=== PATIENT | male | born 1955 | race Caucasian/White ===

== ENCOUNTER → 2017-11-07 | Outpatient (CLI) | payer MEDICARE ==
--- NOTE | 2017-11-07 13:53 | MR ---
EXAMINATION TYPE: MR brain wo con DATE OF EXAM: 11/07/2017 COMPARISON: Prior MRI brain January 27, 2014. CT neck February 11, 2014 HISTORY: Memory loss, Parkinson's disease TECHNIQUE: Multiplanar, multisequence imaging of the brain and brainstem is performed without IV cont rast. FINDINGS: Diffusion weighted images demonstrate no evidence of a recent infarct or other diffusion abnormality. There is no worrisome extra-axial fluid collection. There is ventricular and sulcal prominence consis tent with mild diffuse age-related cerebral atrophy. Some scattered foci of T2 hyperintensity are red emonstrated throughout the white matter bilaterally. Approximately 10-15 scattered lesions are seen i ncluding irregular subcortical lesion right frontal lobe axial image 26. No distinct change from most recent MRI. Midline structures demonstrate normal morphology. The craniocervical junction appears within normal limits. Normal vascular flow voids are present. Dominant left vertebral artery is redemonstrated. The visualized sinuses are clear and the globes are intact. Nasal septum remains deviated to right of mi dline. 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 IMPRESSION: 1. Mild diffuse age-related cerebral atrophy and mild to borderline moderate chronic small vessel isc hemic change without significant change from most recent MRI.
== END | disposition home or self-care (01) ==
LOC: RADMRIMAIN 12:14
PROVIDERS: ATTEND Psychiatry & Neurology Neurology
DX: G31.9 Degenerative disease of nervous system, unspecified (principal); I67.82 Cerebral ischemia; G20 Parkinson's disease
CPT/HCPCS: 70551

== ENCOUNTER → 2018-01-27 | Outpatient (CLI) | payer MEDICARE | END | disposition home or self-care (01) | LOC: LABWHC1 14:49 | PROVIDERS: ATTEND Urology | DX: R97.20 Elevated prostate specific antigen [PSA] (principal) | CPT/HCPCS: 36415; 84153 ==

== ENCOUNTER → 2018-08-22 | Outpatient (CLI) | payer MEDICARE ==
--- NOTE | 2018-08-22 10:37 | FL ---
Modified barium swallow. HISTORY: Dysphagia. Modified barium swallow was performed with the department of speech pathology. The patient was prese nted with various consistencies of barium. fluoro time 1:[address] Dawn. 1 oz thin barium, 1 oz pudding, 1 oz nectar, and 1 oz honey. There is no evidence for aspiration or penetration. Full report is to follow from the department of speech pathology. Impression: No evidence for aspiration or penetration.
== END | disposition home or self-care (01) ==
LOC: RADFLMAIN 09:45
PROVIDERS: ATTEND Physician Assistant Medical
DX: G20 Parkinson's disease (principal)
CPT/HCPCS: 74230

== ENCOUNTER → 2019-01-23 | Outpatient (CLI) | payer MEDICARE | END | disposition home or self-care (01) | LOC: LABWHC1 10:15 | PROVIDERS: ATTEND Urology | DX: R97.20 Elevated prostate specific antigen [PSA] (principal) | CPT/HCPCS: 36415; 84153 ==

== ENCOUNTER → 2019-04-08 | Outpatient (CLI) | payer MEDICARE ==
--- NOTE | 2019-04-08 16:55 | FL ---
MODIFIED SWALLOW / DEGLUTITION STUDY DATE OF EXAM: 04/08/2019 CLINICAL HISTORY: 64-year-old male dysphagia, Parkinson's disease, trouble swallowing. TECHNIQUE: Deglutition study is performed utilizing thin liquid barium, honey and nectar thick liqui d barium, barium thick applesauce, and barium coated cracker. Total fluoroscopy time: 3 minutes 20 seconds. Total images: None. Real-time fluoroscopy support provided to speech pathology. COMPARISON: None. FINDINGS: There is moderate delay in swallow initiation. This improves after a few swallows. There is limited r otary Joshua movement. There is also matching of solids with the tongue. Incomplete epiglottic inversio n is noted. Intermittent severe vallecular and piriform sinus residuals. No penetration or aspiration with any of the tested consistencies. IMPRESSION: 1. No penetration or aspiration seen. 2. Moderate delay in swallow initiation which gradually improves after a few swallows. 3. Incomplete epiglottic inversion. 4. Intermittent severe vallecular and piriform sinus residuals. 5. Limited rotary jaw movement. Please refer to speech therapist notes for further details if necessary.
== END ==
LOC: RADFLMAIN 11:02
PROVIDERS: ATTEND Psychiatry & Neurology Neurology
DX: R13.12 Dysphagia, oropharyngeal phase (principal)
CPT/HCPCS: 74230

== ENCOUNTER → 2019-11-04 | Outpatient (CLI) | payer MEDICARE ==
--- NOTE | 2019-11-05 06:29 | MR ---
EXAMINATION TYPE: MR brain wo con DATE OF EXAM: 11/04/2019 COMPARISON: Prior MRI brain November 07, 2017. HISTORY: Headache chronic neuro deficit per order. Daily headaches with dizziness or hearing loss and bilateral weakness per patient. TECHNIQUE: Multiplanar, multisequence imaging of the brain and brainstem is performed without IV cont rast. FINDINGS: Diffusion weighted images demonstrate no evidence of a recent infarct or other diffusion abnormality. There is no worrisome extra-axial fluid collection. Redemonstration of ventricular and sulcal promine nce without stable. Redemonstration of some scattered foci of T2 hyperintensity seen throughout the w nilay matter bilaterally. Persistent roughly 10-15 scattered lesions. No significant change from prior study. Midline structures demonstrate normal morphology. The craniocervical junction appears within normal limits. Normal vascular flow voids are present. Incidental dominant left vertebral artery is redemon strated. The visualized sinuses are clear and the globes are intact. Nasal septum remains deviated to right of midline with some artifact degradation at this level. 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 IMPRESSION: Mild diffuse cerebral atrophy and mild to borderline moderate nonspecific white matter ch anges may be on the basis of product of chronic small vessel ischemic change and/or altered vascular gyro mechanic related to product of migraine headaches. No significant change from prior MRI.
== END | disposition home or self-care (01) ==
LOC: RADMRIMAIN 17:19
PROVIDERS: ATTEND Psychiatry & Neurology Neurology
DX: G31.1 Senile degeneration of brain, not elsewhere classified (principal); R90.82 White matter disease, unspecified
CPT/HCPCS: 70551

== ENCOUNTER → 2020-02-16 | Outpatient (CLI) | payer MEDICARE, OTHER | END | disposition home or self-care (01) | LOC: LABWHC1 10:31 | PROVIDERS: ATTEND Urology | DX: R97.20 Elevated prostate specific antigen [PSA] (principal) | CPT/HCPCS: 36415; 84153 ==

== ENCOUNTER → 2021-02-17 | Outpatient (CLI) | payer MEDICARE, OTHER | END | disposition home or self-care (01) | LOC: LABWHC1 14:26 | PROVIDERS: ATTEND Urology | DX: R97.20 Elevated prostate specific antigen [PSA] (principal) | CPT/HCPCS: 36415; 84153 ==

== ENCOUNTER 2021-02-27 00:02 | Inpatient (IN) | payer MEDICARE, OTHER ==
--- NOTE | 2021-02-27 00:37 | ED ---
Fall HPI - General Chief Complaint: Fall Stated Complaint: Fall Time Seen by Provider: 02/27/21 00:12 Source: patient, EMS, RN notes reviewed, old records reviewed, Caregiver Mode of arrival: EMS Limitations: no limitations - History of Present Illness Initial Comments: This is a 66-year-old male DF status post fall unknown significance or severity of fall. Patient has history of Parkinson's has been feeling weak lately with multiple falls lately. Patient has severe left hip pain. Possibly hit his head with history of Parkinson's mildly poor story and. Also complaining of fever bodyaches and pains. 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 Witnessed: yes, by family Place Fall Occurred: home Loss of Consciousness: none Prolonged Down Time?: no Symptoms Prior to Fall: none Location: head, neck, back, pelvis, buttocks Location - Extremities: Left: Thigh, Right: Thigh Severity: severe Severity scale (1-10): 7 Quality: burning Context: tripped/slipped Associated Symptoms: headache, neck pain, chest paint, shortness of breath, unable to walk - Related Data Home Medications Medication Instructions Recorded Confirmed Carbidopa/Levodopa 1 tab PO QID 07/29/14 02/27/21 [Carbidopa-Levodopa 25-100 Tab] Pantoprazole Sodium [Protonix] 40 mg PO DAILY 07/29/14 02/27/21 Donepezil [Aricept] 10 mg PO HS 02/27/21 02/27/21 Istradefylline [Nourianz] 20 mg PO DAILY 02/27/21 02/27/21 Loratadine [Claritin] 10 mg PO BID 02/27/21 02/27/21 Midodrine [ProAmatine] 5 mg PO BID 02/27/21 02/27/21 Potassium Chloride [Klor-Con 10 ER] 10 meq PO DAILY 02/27/21 02/27/21 QUEtiapine XR [SEROquel XR] 150 mg PO HS 02/27/21 02/27/21 rOPINIRole HCL [Requip XL] 4 mg PO DAILY 02/27/21 02/27/21 tadalafiL 5 mg PO DAILY 02/27/21 02/27/21 Escitalopram [Lexapro] 10 mg PO HS 02/28/21 02/28/21 Allergies Allergy/AdvReac Type Severity Reaction Status Date / Time sertraline HCl [From Zoloft] AdvReac Diarrhea Verified 02/27/21 09:01 Review of Systems ROS Statement: Those systems with pertinent positive or pertinent negative responses have been documented in the HPI. ROS Other: All systems not noted in ROS Statement are negative. Past Medical History Past Medical History: GERD/Reflux, Hyperlipidemia, Neurologic Disorder Additional Past Medical History / Comment(s): PARKINSONS(TREMORS RT ARM AT REST), dysphagia, hx. bleeding ulcer in past History of Any Multi-Drug Resistant Organisms: None Reported Past Surgical History: Cholecystectomy, Hernia Repair, Tonsillectomy Additional Past Surgical History / Comment(s): sinus and nasal surgery, EGD, colonoscopy Additional Past Anesthesia/Blood Transfusion Reaction / Comment(s): couldn't urinate after general anesthesia in past Past Psychological History: Anxiety, Depression Smoking Status: Never smoker Past Alcohol Use History: None Reported Past Drug Use History: None Reported - Past Family History Father Family Medical History: Cancer Additional Family Medical History / Comment(s): IN IS 70'S- PANCREATIC CANCER, WAS A SMOKER SINCE AGE 6 Mother Family Medical History: Cancer Additional Family Medical History / Comment(s): AT AGE 61, BREAST CANCER. General Exam Limitations: altered mental status General appearance: alert, anxious, in distress Head exam: Present: atraumatic, normocephalic, normal inspection Eye exam: Present: normal appearance, PERRL, EOMI. Absent: scleral icterus, conjunctival injection, periorbital swelling ENT exam: Present: normal exam, mucous membranes moist Neck exam: Present: normal inspection. Absent: tenderness, meningismus, lymphadenopathy Respiratory exam: Present: normal lung sounds bilaterally. Absent: respiratory distress, wheezes, rales, rhonchi, stridor Cardiovascular Exam: Present: regular rate, normal rhythm, normal heart sounds. Absent: systolic murmur, diastolic murmur, rubs, gallop, clicks GI/Abdominal exam: Present: soft, normal bowel sounds. Absent: distended, tenderness, guarding, rebound, rigid Extremities exam: Present: normal inspection, normal capillary refill, other (Hip tenderness especially left hip). Absent: full ROM, pedal edema, joint swelling, calf tenderness Back exam: Present: normal inspection Neurological exam: Present: alert, oriented X3, CN II-XII intact Psychiatric exam: Present: normal affect, normal mood Skin exam: Present: warm, dry, intact, normal color. Absent: rash Course Vital Signs 02/27/21 02/27/21 02/27/21 00:03 01:44 02:41 Temperature 99.4 F Pulse Rate 74 75 76 Respiratory 20 20 20 Rate Blood Pressure 122/73 112/76 126/68 O2 Sat by Pulse 95 95 95 Oximetry 02/27/21 02/27/21 02:57 06:03 Temperature 101.6 F H Pulse Rate 76 61 Respiratory 20 20 Rate Blood Pressure 118/69 116/84 O2 Sat by Pulse 96 96 Oximetry - Reevaluation(s) Reevaluation #1: Medical record is reviewed Patient symptoms are significantly improved here in the emergency department Patient is Informed results and questions answered Medical Decision Making - Medical Decision Making 66 male who is status post fall history of Parkinson's disease coming in with fall no neck found of fever. Fall likely due to fever and weakness and Parkinson's disease patient does have bilateral hip fractures and will admit for orthopedic evaluation - Lab Data Result diagrams: 03/06/21 08:07 03/06/21 08:07 Lab Results 02/27/21 02/27/21 02/27/21 Range/Units 01:52 01:52 01:52 WBC 5.6 (3.8-10.6) k/uL RBC 4.33 (4.30-5.90) m/uL Hgb 13.4 (13.0-17.5) gm/dL Hct 37.6 L (39.0-53.0) % MCV 86.8 (80.0-100.0) fL MCH 30.9 (25.0-35.0) pg MCHC 35.6 (31.0-37.0) g/dL RDW 13.5 (11.5-15.5) % Plt Count 126 L (150-450) k/uL MPV 7.4 Neutrophils % 83 % Lymphocytes % 10 % Monocytes % 5 % Eosinophils % 1 % Basophils % 0 % Neutrophils # 4.7 (1.3-7.7) k/uL Lymphocytes # 0.6 L (1.0-4.8) k/uL Monocytes # 0.3 (0-1.0) k/uL Eosinophils # 0.0 (0-0.7) k/uL Basophils # 0.0 (0-0.2) k/uL PT 11.1 (9.0-12.0) sec INR 1.0 (<1.2) APTT 24.4 (22.0-30.0) sec Sodium 133 L (137-145) mmol/L Potassium 3.8 (3.5-5.1) mmol/L Chloride 101 (98-107) mmol/L Carbon Dioxide 25 (22-30) mmol/L Anion Gap 7 mmol/L BUN 23 H (9-20) mg/dL Creatinine 0.71 (0.66-1.25) mg/dL Est GFR (CKD-EPI)AfAm >90 (>60 ml/min/1.73 sqM) Est GFR (CKD-EPI)NonAf >90 (>60 ml/min/1.73 sqM) Glucose 104 H (74-99) mg/dL Calcium 8.4 (8.4-10.2) mg/dL Phosphorus 3.1 (2.5-4.5) mg/dL Magnesium 1.6 (1.6-2.3) mg/dL Total Bilirubin 0.4 (0.2-1.3) mg/dL AST 45 (17-59) U/L ALT 17 (4-49) U/L Alkaline Phosphatase 66 (38-126) U/L Troponin I (0.000-0.034) ng/mL Total Protein 6.4 (6.3-8.2) g/dL Albumin 3.6 (3.5-5.0) g/dL 02/27/21 Range/Units 01:52 WBC (3.8-10.6) k/uL RBC (4.30-5.90) m/uL Hgb (13.0-17.5) gm/dL Hct (39.0-53.0) % MCV (80.0-100.0) fL MCH (25.0-35.0) pg MCHC (31.0-37.0) g/dL RDW (11.5-15.5) % Plt Count (150-450) k/uL MPV Neutrophils % % Lymphocytes % % Monocytes % % Eosinophils % % Basophils % % Neutrophils # (1.3-7.7) k/uL Lymphocytes # (1.0-4.8) k/uL Monocytes # (0-1.0) k/uL Eosinophils # (0-0.7) k/uL Basophils # (0-0.2) k/uL PT (9.0-12.0) sec INR (<1.2) APTT (22.0-30.0) sec Sodium (137-145) mmol/L Potassium (3.5-5.1) mmol/L Chloride (98-107) mmol/L Carbon Dioxide (22-30) mmol/L Anion Gap mmol/L BUN (9-20) mg/dL Creatinine (0.66-1.25) mg/dL Est GFR (CKD-EPI)AfAm (>60 ml/min/1.73 sqM) Est GFR (CKD-EPI)NonAf (>60 ml/min/1.73 sqM) Glucose (74-99) mg/dL Calcium (8.4-10.2) mg/dL Phosphorus (2.5-4.5) mg/dL Magnesium (1.6-2.3) mg/dL Total Bilirubin (0.2-1.3) mg/dL AST (17-59) U/L ALT (4-49) U/L Alkaline Phosphatase (38-126) U/L Troponin I <0.012 (0.000-0.034) ng/mL Total Protein (6.3-8.2) g/dL Albumin (3.5-5.0) g/dL - EKG Data -: EKG Interpreted by Me (EKG shows sinus rhythm 67. 132 QRS 90 QTC 439) - Radiology Data Radiology results: report reviewed (CT brain C-spine chest and pelvis x-rays do show bilateral hip fractures), image reviewed Critical Care Time Critical Care Time: Yes Total Critical Care Time: 31 Disposition Clinical Impression: Fall, Bilateral hip fractures, Coronavirus infection, Fever Disposition: ADMITTED IP TO THIS [facility] Condition: Fair Is patient prescribed a controlled substance at d/c from ED?: No
--- NOTE | 2021-02-27 01:08 | CT ---
EXAMINATION TYPE: CT brain darius boothe DATE OF EXAM: 02/27/2021 COMPARISON: None HISTORY: fall from standing, hit head CT DLP: 1409.4 mGycm Automated exposure control for dose reduction was used. There is mild cerebral atrophy. There is no mass effect nor midline shift. There is no sign of intrac ranial hemorrhage. There is no evidence of cerebral edema. Calvarium is intact. Skull base is intact. There is normal aeration of the mastoid sinuses. The cervical vertebra have fairly normal spacing and alignment. Posterior elements are intact. Facet joints are intact. There is minor spurring of the endplates anteriorly at C5-6 and C6-7. IMPRESSION: Negative CT scan of the cervical spine. Mild cerebral atrophy. No acute intracranial abnormality.
--- NOTE | 2021-02-27 01:09 | XR ---
EXAMINATION TYPE: XR chest 1V DATE OF EXAM: 02/27/2021 COMPARISON: 08/04/2015 HISTORY: Pain. Parkinson's disease. Fall. TECHNIQUE: Single view FINDINGS: There is no heart failure nor confluent pneumonic infiltrate. Costophrenic angles are clear . Bony thorax is intact. There is no pleural effusion or pneumothorax. IMPRESSION: No active cardiopulmonary disease. No adverse change.
--- NOTE | 2021-02-27 01:11 | XR ---
EXAMINATION TYPE: XR Hip LT and AP Pelvis DATE OF EXAM: 02/27/2021 COMPARISON: 01/16/2014 HISTORY: Fall. Pain. TECHNIQUE: 3 views FINDINGS: There is acute mildly impacted subcapital fracture left femur. There is no dislocation. The pelvic ring is intact. There is deformity also of the right femoral head is suggestive of a chronic impacted subcapital frac ture. IMPRESSION: Acute subcapital fracture left femur. Chronic subcapital fracture right femur. Fractures appear new compared to 01/16/2014 exam.
[2021-02-27] MEDS ORDERED: MORPHINE SULFATE 4 MG/ML SYRINGE IV STA (01:44)
[2021-02-27] MEDS ORDERED: ONDANSETRON 4 MG/2 ML VIAL IVP STA (01:44)
[2021-02-27] MEDS ORDERED: SODIUM CHLORIDE 0.9% 1,000 ML IV STA (01:44)
[2021-02-27 02:08] LABS: Basophils % (A) 0 %; Eosinophils % (A) 1 %; HCT 37.6 % (39.0-53.0); HGB 13.4 gm/dL (13.0-17.5); Lymphocytes # (A) 0.6 k/uL (1.0-4.8); Lymphocytes % (A) 10 %; MCH 30.9 pg (25.0-35.0); MCHC 35.6 g/dL (31.0-37.0); MCV 86.8 fL (80.0-100.0); Mean Platelet Volume 7.4; Monocytes # (A) 0.3 k/uL (0-1.0); Monocytes % (A) 5 %; Neutrophils # (A) 4.7 k/uL (1.3-7.7); Neutrophils % (A) 83 %; Platelet Count 126 k/uL (150-450); RBC 4.33 m/uL (4.30-5.90); RDW 13.5 % (11.5-15.5); WBC 5.6 k/uL (3.8-10.6)
[2021-02-27] MEDS ORDERED: ONDANSETRON 4 MG/2 ML VIAL IVP PRN (02:12)
[2021-02-27] MEDS ORDERED: MORPHINE SULFATE 4 MG/ML SYRINGE IV PRN (02:12)
[2021-02-27] MEDS ORDERED: NALOXONE 0.4 MG/ML 1 ML VIAL IV PRN (02:12)
[2021-02-27] MEDS ORDERED: LORazepam 2 MG/ML INJ IV STA (02:13)
[2021-02-27] MEDS ORDERED: MORPHINE SULFATE 4 MG/ML SYRINGE IVP STA (02:13)
[2021-02-27 02:23] LABS: Partial Thromboplastin Time 24.4 sec (22.0-30.0); Prothrombin Time 11.1 sec (9.0-12.0)
[2021-02-27] MEDS: SODIUM CHLORIDE 0.9% 1,000 ML IV SCH ×3 (02:30→20:36)
[2021-02-27 02:36] LABS: ALT 17 U/L (4-49); AST 45 U/L (17-59); African American GFR (CKD) >90 (>60 ml/min/1.73 sqM); Albumin 3.6 g/dL (3.5-5.0); Alkaline Phosphatase 66 U/L (38-126); Anion Gap 7 mmol/L; Blood Urea Nitrogen 23 mg/dL (9-20); Calcium 8.4 mg/dL (8.4-10.2); Carbon Dioxide 25 mmol/L (22-30); Chloride 101 mmol/L (98-107); Glucose 104 mg/dL (74-99); Magnesium 1.6 mg/dL (1.6-2.3); Non-African American GFR(CKD) >90 (>60 ml/min/1.73 sqM); Phosphorus 3.1 mg/dL (2.5-4.5); Potassium 3.8 mmol/L (3.5-5.1); Sodium 133 mmol/L (137-145); Total Bilirubin 0.4 mg/dL (0.2-1.3); Total Protein 6.4 g/dL (6.3-8.2)
[2021-02-27] MEDS ORDERED: ACETAMINOPHEN TAB 500 MG TAB PO STA (03:04)
[2021-02-27] MEDS: IBUPROFEN 600 MG TAB PO STA ×2 (03:11→03:18)
[2021-02-27 03:18] LABS: Appearance,Urine Clear (Clear); Bacteria,Urine Rare /hpf; Bilirubin,Urine Negative (Negative); Blood,Urine Small (Negative); Color,Urine Yellow; Glucose,Urine (UA) Negative (Negative); Ketones,Urine 1+ (Negative); Leukocyte Esterase,Urine Negative (Negative); Mucus,Urine Moderate /hpf; Nitrite,Urine Negative (Negative); Protein,Urine Trace (Negative); RBC,Urine 2 /hpf (0-5); Specific Gravity,Urine 1.031 (1.001-1.035); Urobilinogen,Urine <2.0 mg/dL (<2.0); WBC,Urine 3 /hpf (0-5)
[2021-02-27] MEDS ORDERED: KETOROLAC 30 MG/ML 1 ML VIAL IVP STA (04:09)
[2021-02-27] MEDS ORDERED: ACETAMINOPHEN IV (For NPO) 1,000 MG in EMPTY BAG 1 BAG IVPB ONE (04:30)
--- NOTE | 2021-02-27 08:48 | P.HPOR ---
<JordannegroAlexus Mayda - Last Filed: 02/27/21 13:51> History of Present Illness H&P Date: 02/27/21 Chief Complaint: Left femoral neck fracture The patient is a 66 y/o male with a history of Parkinson's, hyperlipidemia, and GERD, who presented to the emergency department at [facility] with left pain. He sustained a fall at home yesterday and had immediate left hip pain. He does have frequent falls at home according to the patient's . The patient does only leave the house for doctor's appointments. He did have a fall two years ago and sustained a right hip fracture which healed on it's own without surgery. He is admitted to the hospital for further evaluation and surgical intervention for the left hip. He is COVID positive upon routine testing on admission and he did have a fever while in the ER. Review of Systems Constitutional: Reports chills, Reports fever Musculoskeletal: left: hip pain, hip stiffness, hip swelling Past Medical History Past Medical History: GERD/Reflux, Hyperlipidemia, Neurologic Disorder Additional Past Medical History / Comment(s): PARKINSONS(TREMORS RT ARM AT REST), dysphagia, hx. bleeding ulcer in past History of Any Multi-Drug Resistant Organisms: None Reported Past Surgical History: Cholecystectomy, Hernia Repair, Tonsillectomy Additional Past Surgical History / Comment(s): sinus and nasal surgery, EGD, colonoscopy Additional Past Anesthesia/Blood Transfusion Reaction / Comment(s): couldn't urinate after general anesthesia in past Past Psychological History: Anxiety, Depression Smoking Status: Never smoker Past Alcohol Use History: None Reported Past Drug Use History: None Reported - Past Family History Father Family Medical History: Cancer Additional Family Medical History / Comment(s): IN IS 70'S- PANCREATIC C ANCER, WAS A SMOKER SINCE AGE 6 Mother Family Medical History: Cancer Additional Family Medical History / Comment(s): AT AGE 61, BREAST CANCER. Medications and Allergies Home Medications Medication Instructions Recorded Confirmed Type Carbidopa/Levodopa 1 tab PO QID 07/29/14 02/27/21 History [Carbidopa-Levodopa 25-100 Tab] Pantoprazole Sodium [Protonix] 40 mg PO DAILY 07/29/14 02/27/21 History Donepezil [Aricept] 10 mg PO HS 02/27/21 02/27/21 History Istradefylline [Nourianz] 20 mg PO DAILY 02/27/21 02/27/21 History Loratadine [Claritin] 10 mg PO BID 02/27/21 02/27/21 History Midodrine [ProAmatine] 5 mg PO BID 02/27/21 02/27/21 History Potassium Chloride [Klor-Con 10 ER] 10 meq PO DAILY 02/27/21 02/27/21 History QUEtiapine XR [SEROquel XR] 150 mg PO HS 02/27/21 02/27/21 History rOPINIRole HCL [Requip XL] 4 mg PO DAILY 02/27/21 02/27/21 History tadalafiL [Tadalafil] 5 mg PO DAILY 02/27/21 02/27/21 History Escitalopram [Lexapro] 10 mg PO HS 02/28/21 02/28/21 History Allergies Allergy/AdvReac Type Severity Reaction Status Date / Time sertraline HCl [From Zoloft] AdvReac Diarrhea Verified 02/27/21 09:01 Physical Examination The patient is a 66 year old male that is no acute distress. He is quite sleepy upon exam. The patient's head is normocephalic and atraumatic. Exam of the ce rvical spine reveals no pain upon palpation or range of motion. Exam of the bilateral upper extremities reveal no obvious deformities or pain upon range of motion. Exam of the right lower extremity reveals no pain upon palpation. Exam of the lower lower extremity reveals a externally rotated and shortened leg. Some pain upon palpation to the lateral hip. There is pain upon logrolling and any range of motion of the leg. Bilateral calves are soft and nontender. Patient has good foot and ankle motion bilaterally. Neurological and circulatory status is intact. Results - Labs Labs: Abnormal Lab Results - Last 24 Hours (Table) 02/27/21 02/27/21 02/27/21 Range/Units 01:52 01:52 02:36 Hct 37.6 L (39.0-53.0) % Plt Count 126 L (150-450) k/uL Lymphocytes # 0.6 L (1.0-4.8) k/uL Sodium 133 L (137-145) mmol/L BUN 23 H (9-20) mg/dL Glucose 104 H (74-99) mg/dL Urine Protein (Negative) Urine Ketones (Negative) Urine Blood (Negative) Urine Bacteria (None) /hpf Urine Mucus (None) /hpf Coronavirus (PCR) Detected A (Not Detectd) 02/27/21 Range/Units 02:57 Hct (39.0-53.0) % Plt Count (150-450) k/uL Lymphocytes # (1.0-4.8) k/uL Sodium (137-145) mmol/L BUN (9-20) mg/dL Glucose (74-99) mg/dL Urine Protein Trace H (Negative) Urine Ketones 1+ H (Negative) Urine Blood Small H (Negative) Urine Bacteria Rare H (None) /hpf Urine Mucus Moderate H (None) /hpf Coronavirus (PCR) (Not Detectd) H & H 02/27/21 Range/Units 01:52 Hgb 13.4 (13.0-17.5) gm/dL Hct 37.6 L (39.0-53.0) % Coagulation 02/27/21 Range/Units 01:52 INR 1.0 (<1.2) Result Diagrams: 02/27/21 01:52 02/27/21 01:52 - Diagnostic results Hip x-ray: image reviewed (X-ray of the left hip and pelvis reveals a chronic right hip subcapital fracture and a new left hip subcapital fracture. ) Assessment and Plan (1) Closed left hip fracture Current Visit: Yes Status: Acute Code(s): S72.002A - FRACTURE OF UNSP PART OF NECK OF LEFT FEMUR, INIT SNOMED Code(s): 596652853 (2) History of fracture of right hip Current Visit: Yes Status: Acute Code(s): Z87.81 - PERSONAL HISTORY OF (HEALED) TRAUMATIC FRACTURE SNOMED Code(s): 592384309 (3) Coronavirus infection Current Visit: Yes Status: Acute Code(s): B34.2 - CORONAVIRUS INFECTION, UNSPECIFIED SNOMED Code(s): 091781383 (4) Fall Current Visit: Yes Status: Acute Code(s): W19.XXXA - UNSPECIFIED FALL, INITIAL ENCOUNTER SNOMED Code(s): 5402717 (5) Parkinson disease Current Visit: Yes Status: Acute Code(s): G20 - PARKINSON'S DISEASE SNOMED Code(s): 32691470 Plan: The clinical and x-ray findings were discussed with the patient. The case was discussed at length with Dr. Rodriguez. We did attempt to call the patient's with no answer. Treatment options were discussed and surgical intervention is recommended to the left hip. We discussed the surgical plan as well as the expected postoperative course. Risks and benefits were reviewed including (but not limited to) the risks of infection, bleeding, blood clots, delayed or nonunion, anesthesia-related complications and possible need for additional surgery. Questions were invited and answered. The patient expressed understanding and wishes to proceed with surgery. The patient will be kept on bedrest. Continue PRN pain management. He will be NPO at midnight tonight. He is scheduled for a direct anterior left hip hemiarthroplasty tomorrow afternoon. We will await pre-op clearance from internal medicine. <Eugenie Rodriguez - Last Filed: 03/01/21 12:45> Physical Examination Osteopathic Statement: *. No significant issues noted on an osteopathic structural exam other than those noted in the History and Physical/Consult. Results - Labs Labs: Abnormal Lab Results - Last 24 Hours (Table) 02/28/21 02/28/21 03/01/21 Range/Units 18:43 21:22 11:49 Hct 37.4 L (39.0-53.0) % Plt Count 128 L (150-450) k/uL Lymphocytes # 0.5 L (1.0-4.8) k/uL POC Glucose (mg/dL) 124 H 101 H (75-99) mg/dL Microbiology - Last 24 Hours (Table) 02/28/21 08:50 Blood Culture - Preliminary Blood No Growth after 24 hours 02/28/21 08:40 Blood Culture - Preliminary Blood No Growth after 24 hours H & H 02/27/21 02/28/21 02/28/21 Range/Units 01:52 04:16 18:43 Hgb 13.4 12.8 L 13.0 (13.0-17.5) gm/dL Hct 37.6 L 36.2 L 37.4 L (39.0-53.0) % Coagulation 02/27/21 Range/Units 01:52 INR 1.0 (<1.2) Result Diagrams: 02/28/21 18:43 02/28/21 04:16 Assessment and Plan Plan: Was able to reach the patient's and discussed the case with her. He has an unstable fracture that is best treated with liyah-arthroplasty. All questions were answered. We'll plan on a direct anterior cemented liyah-arthroplasty once he is cleared.
[2021-02-27] MEDS ORDERED: PANTOPRAZOLE 40 MG/10 ML VIAL IVP SCH (11:15)
[2021-02-27] MEDS ORDERED: ALBUTEROL HFA INHALER INHALATION PRN (11:25)
[2021-02-27] MEDS: ALBUTEROL HFA INHALER INHALATION SCH ×3 (12:43→20:27)
[2021-02-27] MEDS: CHOLECALCIFEROL 25 MCG (1000 IU) TABLET PO SCH (13:11)
[2021-02-27] MEDS: ASCORBIC ACID 500 MG TAB PO SCH ×2 (13:11→16:46)
[2021-02-27] MEDS: CARBIDOPA-LEVODOPA 25-100 MG 1 EACH TAB PO SCH ×4 (13:12→21:39)
[2021-02-27] MEDS: lamoTRIgine 25 MG TAB PO SCH (13:12)
[2021-02-27] MEDS: ZINC SULFATE 220 MG CAP PO SCH (13:12)
[2021-02-27] MEDS: MIDODRINE 5 MG TAB PO SCH ×2 (13:13→20:36)
[2021-02-27] MEDS: busPIRone HCl 5 MG TAB PO SCH ×2 (16:47→21:39)
[2021-02-27] MEDS: DONEPEZIL 10 MG TAB PO SCH (20:36)
[2021-02-28] MEDS: SODIUM CHLORIDE 0.9% 1,000 ML IV SCH ×3 (04:05→15:02)
[2021-02-28 05:01] LABS: Basophils % (A) 0 %; Eosinophils % (A) 0 %; HCT 36.2 % (39.0-53.0); HGB 12.8 gm/dL (13.0-17.5); Lymphocytes # (A) 0.7 k/uL (1.0-4.8); Lymphocytes % (A) 11 %; MCH 30.1 pg (25.0-35.0); MCHC 35.5 g/dL (31.0-37.0); MCV 84.8 fL (80.0-100.0); Mean Platelet Volume 7.5; Monocytes # (A) 0.3 k/uL (0-1.0); Monocytes % (A) 6 %; Neutrophils # (A) 5.1 k/uL (1.3-7.7); Neutrophils % (A) 83 %; Platelet Count 128 k/uL (150-450); RBC 4.27 m/uL (4.30-5.90); RDW 12.7 % (11.5-15.5); WBC 6.1 k/uL (3.8-10.6)
[2021-02-28 05:37] LABS: ALT 10 U/L (4-49); AST 115 U/L (17-59); African American GFR (CKD) >90 (>60 ml/min/1.73 sqM); Albumin 3.3 g/dL (3.5-5.0); Anion Gap 7 mmol/L; Blood Urea Nitrogen 19 mg/dL (9-20); Carbon Dioxide 24 mmol/L (22-30); Chloride 100 mmol/L (98-107); Glucose 84 mg/dL (74-99); Non-African American GFR(CKD) >90 (>60 ml/min/1.73 sqM); Potassium 3.9 mmol/L (3.5-5.1); Sodium 131 mmol/L (137-145); Total Bilirubin 0.6 mg/dL (0.2-1.3)
[2021-02-28 05:39] LABS: Alkaline Phosphatase 67 U/L (38-126)
[2021-02-28] MEDS: LACTATED RINGERS 1,000 ML IV SCH (06:25)
[2021-02-28] MEDS: PANTOPRAZOLE 40 MG TABLET PO SCH (07:54)
[2021-02-28] MEDS: ASCORBIC ACID 500 MG TAB PO SCH ×2 (07:54→17:14)
[2021-02-28] MEDS: ZINC SULFATE 220 MG CAP PO SCH (07:55)
[2021-02-28] MEDS: CHOLECALCIFEROL 25 MCG (1000 IU) TABLET PO SCH (07:55)
[2021-02-28] MEDS: CARBIDOPA-LEVODOPA 25-100 MG 1 EACH TAB PO SCH ×4 (08:16→21:32)
[2021-02-28] MEDS: MIDODRINE 5 MG TAB PO SCH ×2 (08:16→21:33)
[2021-02-28] MEDS: lamoTRIgine 25 MG TAB PO SCH (08:16)
[2021-02-28] MEDS: busPIRone HCl 5 MG TAB PO SCH ×3 (08:16→21:31)
[2021-02-28] MEDS: ACETAMINOPHEN TAB 325 MG TAB PO PRN (08:16)
[2021-02-28] MEDS: ALBUTEROL HFA INHALER INHALATION SCH ×4 (08:43→22:36)
[2021-02-28] MEDS: DEXAMETHASONE SOD PHOSPHATE 10 MG/ML 1 ML VIAL IVP SCH (10:39)
[2021-02-28] MEDS: INSULIN ASPART (NovoLOG) 100 UNIT/ML VIAL SQ SCH ×3 (11:36→21:33)
[2021-02-28 11:37] LABS: Glucose,Whole Blood 90 mg/dL (75-99)
[2021-02-28] MEDS ORDERED: MIDAZOLAM 2 MG/2 ML VIAL ONE (15:30)
[2021-02-28] MEDS ORDERED: PROPOFOL 10 MG/ML 20 ML VIAL IV ONE (15:30)
[2021-02-28] MEDS ORDERED: ceFAZolin 1,000 MG VIAL ONE (15:30)
[2021-02-28] MEDS ORDERED: SODIUM CHLORIDE 0.9% 100 ML BAG ONE ×2 (15:30)
[2021-02-28] MEDS ORDERED: TRANEXAMIC ACID 1,000 MG/10 ML VIAL ONE (15:30)
[2021-02-28] MEDS ORDERED: .fentaNYL (PF) 50 MCG/ML 2 ML AMP ONE (15:30)
[2021-02-28] MEDS ORDERED: SODIUM CHLORIDE 0.9% 1,000 ML IV ONE (15:30)
[2021-02-28] MEDS ORDERED: TRANEXAMIC ACID 1,000 MG in SODIUM CHLORIDE 0.9% 100 ML IVPB ONE ×2 (16:15→16:30)
[2021-02-28] MEDS ORDERED: HYDROcodone/APAP 5-325MG 1 EACH TAB PO PRN (18:00)
[2021-02-28] MEDS ORDERED: HYDROmorphone 0.5 MG/0.5 ML SYRINGE IVP PRN (18:00)
[2021-02-28] MEDS ORDERED: HYDROmorphone 0.2 MG/1 ML SYRINGE IVP PRN (18:00)
[2021-02-28 19:06] LABS: Basophils % (A) 0 %; Eosinophils % (A) 0 %; HCT 37.4 % (39.0-53.0); Lymphocytes # (A) 0.5 k/uL (1.0-4.8); Lymphocytes % (A) 9 %; MCH 29.9 pg (25.0-35.0); MCHC 34.7 g/dL (31.0-37.0); MCV 86.2 fL (80.0-100.0); Mean Platelet Volume 7.5; Monocytes # (A) 0.3 k/uL (0-1.0); Monocytes % (A) 5 %; Neutrophils # (A) 4.6 k/uL (1.3-7.7); Neutrophils % (A) 85 %; Platelet Count 128 k/uL (150-450); RBC 4.34 m/uL (4.30-5.90); RDW 12.8 % (11.5-15.5); WBC 5.5 k/uL (3.8-10.6)
[2021-02-28 21:23] LABS: Glucose,Whole Blood 124 mg/dL (75-99)
[2021-02-28] MEDS: SENNOSIDES-DOCUSATE SODIUM 1 EACH TAB PO SCH (21:31)
[2021-02-28] MEDS: DONEPEZIL 10 MG TAB PO SCH (21:32)
[2021-02-28] MEDS: HYDROmorphone 0.5 MG/0.5 ML SYRINGE IVP PRN (22:53)
[2021-03-01] MEDS: LACTATED RINGERS 1,000 ML IV SCH (01:05)
[2021-03-01] MEDS: SODIUM CHLORIDE 0.9% 1,000 ML IV SCH ×3 (02:10→22:10)
[2021-03-01] MEDS: HYDROmorphone 0.5 MG/0.5 ML SYRINGE IVP PRN (02:13)
[2021-03-01] MEDS: INSULIN ASPART (NovoLOG) 100 UNIT/ML VIAL SQ SCH ×4 (07:48→22:06)
[2021-03-01] MEDS: ALBUTEROL HFA INHALER INHALATION SCH ×4 (08:17→22:03)
--- NOTE | 2021-03-01 08:45 | XR ---
EXAMINATION TYPE: XR Hip Limited LT DATE OF EXAM: 02/28/2021 COMPARISON: NONE HISTORY: Postop TECHNIQUE: One view submitted. FINDINGS: There is postsurgical change in near anatomic alignment. There is soft tissue edema and emphysema. IMPRESSION: 1. Postoperative change. Appears in near-anatomic alignment.
--- NOTE | 2021-03-01 08:47 | FL ---
EXAMINATION TYPE: FL guidance operating room DATE OF EXAM: 02/28/2021 HISTORY: Fluoroscopy time 17 seconds of fluoroscopy provided. IMPRESSION: 1. Fluoroscopy time.
--- NOTE | 2021-03-01 08:49 | P.CONS ---
History of Present Illness - Reason for Consult Consult date: 02/27/21 medical eval - Chief Complaint fall - History of Present Illness Elie Mendoza is a 66 yo M with PMH of parkinson disease, HLD, GERD, major depression who presented to the ED after a fall at home. He states that he had been unsteady at home and has had frequent falls. He sustained L sided hip pain after the fall. On initial presentation vitals were stable, labs on review overall unremarkable. He was COVID positive. Hip XR showing acute subcapital fracture of the L femur. Pt currently endorses hip pain, denies chest pain, fever, chills, shortness of breath, cough. Review of Systems All systems: negative Constitutional: Reports malaise, Denies chills, Denies fever Eyes: denies blurred vision, denies pain Ears, nose, mouth and throat: Denies headache, Denies sore throat Cardiovascular: Denies chest pain, Denies shortness of breath Respiratory: Denies cough Gastrointestinal: Denies abdominal pain, Denies diarrhea, Denies nausea, Denies vomiting Musculoskeletal: Reports fractures, Reports frequent falls, Reports gait dysfunction, Denies myalgias Integumentary: Denies pruritus, Denies rash Neurological: Denies numbness, Denies weakness Psychiatric: Denies anxiety, Denies depression Endocrine: Denies fatigue, Denies weight change Past Medical History Past Medical History: Dementia, GERD/Reflux, Hyperlipidemia, Neurologic Disorder Additional Past Medical History / Comment(s): Parkinson's disease-R arm worse tremors but also has L arm tremors, dysphagia-always drinks with a straw, hypotension, past bleeding ulcer as a teen with transfusions, diverticular disease, RLS, sinus problems. History of Any Multi-Drug Resistant Organisms: None Reported Past Surgical History: Breast Surgery, Cholecystectomy, Hernia Repair, Tonsillectomy Additional Past Surgical History / Comment(s): sinus and nasal surgery, EGD, colonoscopy, L inguinal hernia repair x2, L breast biopsy. Past Anesthesia/Blood Transfusion Reactions: No Reported Reaction Additional Past Anesthesia/Blood Transfusion Reaction / Comm: couldn't urinate after general anesthesia in past Smoking Status: Never smoker - Past Family History Father Family Medical History: Cancer Additional Family Medical History / Comment(s): IN IS 70'S- PANCREATIC CANCER, WAS A SMOKER SINCE AGE 6 Mother Family Medical History: Cancer Additional Family Medical History / Comment(s): AT AGE 61, BREAST CANCER. HYPOTENSION. Medications and Allergies Home Medications Medication Instructions Recorded Confirmed Type Carbidopa/Levodopa 1 tab PO QID 07/29/14 02/27/21 History [Carbidopa-Levodopa 25-100 Tab] Pantoprazole Sodium [Protonix] 40 mg PO DAILY 07/29/14 02/27/21 History Donepezil [Aricept] 10 mg PO HS 02/27/21 02/27/21 History Istradefylline [Nourianz] 20 mg PO DAILY 02/27/21 02/27/21 History Loratadine [Claritin] 10 mg PO BID 02/27/21 02/27/21 History Midodrine [ProAmatine] 5 mg PO BID 02/27/21 02/27/21 History Potassium Chloride [Klor-Con 10 ER] 10 meq PO DAILY 02/27/21 02/27/21 History QUEtiapine XR [SEROquel XR] 150 mg PO HS 02/27/21 02/27/21 History rOPINIRole HCL [Requip XL] 4 mg PO DAILY 02/27/21 02/27/21 History tadalafiL [Tadalafil] 5 mg PO DAILY 02/27/21 02/27/21 History Escitalopram [Lexapro] 10 mg PO HS 02/28/21 02/28/21 History Allergies Allergy/AdvReac Type Severity Reaction Status Date / Time sertraline HCl [From Zoloft] AdvReac Diarrhea Verified 02/27/21 09:01 Physical Exam Vitals: Vital Signs Temp Pulse Pulse Resp BP Pulse Ox 03/01/21 01:53 98.1 F 77 18 113/75 97 02/28/21 20:00 98.4 F 68 14 110/70 92 L 02/28/21 18:20 97.8 F 62 20 102/69 93 L 02/28/21 13:31 18 02/28/21 13:27 99.3 F 90 18 128/69 97 Intake and Output 02/28/21 03/01/21 03/01/21 22:59 06:59 14:59 Intake Total 700 2080 Output Total 700 500 Balance 0 1580 Intake: IV 700 Intake, IV Titration 2080 Amount Sodium Chloride 0.9% 1, 520 000 ml @ 0 mls/hr IV .STMy Visual Brief -[facility] Rx#:[id number] Sodium Chloride 0.9% 1, 1560 000 ml @ 130 mls/hr IV . Q7H42M [facility] Rx#:[id number] Output: Urine 550 500 Estimated Blood Loss 150 Other: Voiding Method Indwelling Catheter General: well developed, well nourished, NAD HEENT: normocephalic, atraumatic, mucus membranes moist Neck: supple, no JVD, no thyromegaly CV: RRR, no murmur Lungs: normal effort, clear throughout Abd: soft, nontender, non distended Neuro: alert and oriented x3, no focal deficit Skin: warm and dry. Ecchymosis to R hip Results CBC & Chem 7: 02/28/21 18:43 02/28/21 04:16 Labs: Abnormal Lab Results - Last 24 Hours (Table) 02/28/21 02/28/21 Range/Units 18:43 21:22 Hct 37.4 L (39.0-53.0) % Plt Count 128 L (150-450) k/uL Lymphocytes # 0.5 L (1.0-4.8) k/uL POC Glucose (mg/dL) 124 H (75-99) mg/dL Assessment and Plan Plan: 1. L femur fracture. Management per Orthopedic surgery. He is medically cleared for surgery. ASA 3 with active COVID 2. COVID pneumonia. Start IV steroids, vitamin cocktail, supplemental O2 support 3. Parkinson disease. Continue with sinemet 4. GERD. Continue PPI 5. Major depression. Continue lamictal
--- NOTE | 2021-03-01 08:51 | P.PN ---
Subjective Progress Note Date: 02/28/21 He continues to complain of hip pain, denies chest pain, fever, chills. He notes cough and congestion Objective - Vital Signs Vital signs: Vital Signs Temp 98.1 F 03/01/21 01:53 Pulse 77 03/01/21 01:53 Resp 18 03/01/21 01:53 BP 113/75 03/01/21 01:53 Pulse Ox 97 03/01/21 01:53 Intake & Output 02/28/21 03/01/21 03/01/21 18:59 06:59 18:59 Intake Total 1480 2080 Output Total 700 500 Balance 780 1580 Intake: IV 1480 Sodium Chloride 0.9% 1, 780 000 ml @ 130 mls/hr IV . Q7H42M [facility] Rx#:[id number] Intake, IV Titration 2080 Amount Sodium Chloride 0.9% 1, 520 000 ml @ 0 mls/hr IV .STK -[facility] Rx#:[id number] Sodium Chloride 0.9% 1, 1560 000 ml @ 130 mls/hr IV . Q7H42M [facility] Rx#:[id number] Output: Urine 550 500 Estimated Blood Loss 150 Other: Voiding Method Indwelling Catheter Indwelling Catheter - Exam Gen: well developed, well nourished, NAD CV: RRR, no murmur lungs: normal effort, clear thoughout - Labs CBC & Chem 7: 02/28/21 18:43 02/28/21 04:16 Labs: Abnormal Lab Results - Last 24 Hours (Table) 02/28/21 02/28/21 Range/Units 18:43 21:22 Hct 37.4 L (39.0-53.0) % Plt Count 128 L (150-450) k/uL Lymphocytes # 0.5 L (1.0-4.8) k/uL POC Glucose (mg/dL) 124 H (75-99) mg/dL Assessment and Plan Plan: Pt for surgery today, he is medically cleared. Continue with IV steroids and vitamin support. Continue supplemental O2
[2021-03-01] MEDS: HYDROcodone/APAP 5-325MG 1 EACH TAB PO PRN (09:04)
[2021-03-01] MEDS: PANTOPRAZOLE 40 MG TABLET PO SCH (09:04)
[2021-03-01] MEDS: DEXAMETHASONE SOD PHOSPHATE 10 MG/ML 1 ML VIAL IVP SCH (09:04)
[2021-03-01] MEDS: busPIRone HCl 5 MG TAB PO SCH ×3 (09:05→22:04)
[2021-03-01] MEDS: lamoTRIgine 25 MG TAB PO SCH (09:05)
[2021-03-01] MEDS: ASCORBIC ACID 500 MG TAB PO SCH ×2 (09:05→18:15)
[2021-03-01] MEDS: MIDODRINE 5 MG TAB PO SCH ×2 (09:05→22:04)
[2021-03-01] MEDS: CHOLECALCIFEROL 25 MCG (1000 IU) TABLET PO SCH (09:05)
[2021-03-01] MEDS: ZINC SULFATE 220 MG CAP PO SCH (09:05)
[2021-03-01] MEDS: CARBIDOPA-LEVODOPA 25-100 MG 1 EACH TAB PO SCH ×4 (09:05→22:34)
[2021-03-01] MEDS ORDERED: ALBUTEROL HFA INHALER INHALATION PRN (10:18)
--- NOTE | 2021-03-01 11:13 | P.PN ---
Subjective Progress Note Date: 03/01/21 Elie Mendoza is a 66 yo M with PMH of parkinson disease, HLD, GERD, major depression who presented to the ED after a fall at home. He states that he had been unsteady at home and has had frequent falls. He sustained L sided hip pain after the fall. On initial presentation vitals were stable, labs on review overall unremarkable. He was COVID positive. Hip XR showing acute subcapital fracture of the L femur. Pt currently endorses hip pain, denies chest pain, fever, chills, shortness of breath, cough. 03/01/2021 status post direct anterior left hip arthroplasty, postop day #1. Tolerated procedure well. Pain currently controlled, recently medicated with [place].Maintained on Covid regimen. Oxygen requirements worsened, increased to 15 L high flow nasal cannula. T-max 99.3., Blood cultures pending. Denies chest pain, palpitations. Objective - Vital Signs Vital signs: Vital Signs Temp 98.1 F 03/01/21 01:53 Pulse 77 03/01/21 01:53 Resp 18 03/01/21 01:53 BP 113/75 03/01/21 01:53 Pulse Ox 97 03/01/21 01:53 Intake & Output 02/28/21 03/01/21 03/01/21 18:59 06:59 18:59 Intake Total 1480 2080 Output Total 700 500 Balance 780 1580 Intake: IV 1480 Sodium Chloride 0.9% 1, 780 000 ml @ 130 mls/hr IV . Q7H42M [facility] Rx#:[id number] Intake, IV Titration 2080 Amount Sodium Chloride 0.9% 1, 520 000 ml @ 0 mls/hr IV .STK [facility] Rx#:[id number] Sodium Chloride 0.9% 1, 1560 000 ml @ 130 mls/hr IV . Q7H42M [facility] Rx#:[id number] Output: Urine 550 500 Estimated Blood Loss 150 Other: Voiding Method Indwelling Catheter Indwelling Catheter - Exam General: Sitting up in bed, NAD, respiratory effort increased. HEENT: normocephalic, atraumatic, mucus membranes moist Neck: supple, no JVD, CV: RRR, no murmur Lungs: normal effort, bilateral bases diminished Abd: soft, nontender, non distended, positive bowel sounds Neuro: alert and oriented x3, no focal deficit. Parkinson tremors. Skin: warm and dry. Left hip dressing clean dry and intact. - Labs CBC & Chem 7: 02/28/21 18:43 02/28/21 04:16 Labs: Abnormal Lab Results - Last 24 Hours (Table) 02/28/21 02/28/21 Range/Units 18:43 21:22 Hct 37.4 L (39.0-53.0) % Plt Count 128 L (150-450) k/uL Lymphocytes # 0.5 L (1.0-4.8) k/uL POC Glucose (mg/dL) 124 H (75-99) mg/dL Assessment and Plan Assessment: 1. L femur fracture, status post direct anterior left hip arthroplasty 2. COVID pneumonia. Start IV steroids, vitamin cocktail, supplemental O2 support 3. Parkinson disease. Continue with sinemet 4. GERD. Continue PPI 5. Major depression. Continue lamictal Plan: Continue on current medication regime, monitoring, symptomatic treatment. Maintain Covid cocktail. Worsening pulmonary status,portable chest x-ray, pro- calcitonin ordered.Pulmonary consulted. Aggressive pulmonary toileting. Lovenox for DVT prophylaxis initiated. Protonix for GI prophylaxis. Pain management. PT. blood cultures pending. The impression and plan of care has been dictated as directed. : I performed a history and examination of this patient, discussed the same with the dictator. I agree with the dictator's note ,documented as a scribe. Any additional findings or plans will be noted.
[2021-03-01 11:54] LABS: Glucose,Whole Blood 101 mg/dL (75-99)
--- NOTE | 2021-03-01 12:17 | XR ---
EXAMINATION TYPE: XR chest 1V portable DATE OF EXAM: 03/01/2021 COMPARISON: 02/27/2021 HISTORY: Shortness of breath TECHNIQUE: Single frontal view of the chest is obtained. FINDINGS: There are now patchy bilateral areas of infiltrate. No sizable pleural effusion or pneumot horax. Arthropathy of the shoulders. IMPRESSION: Patchy bilateral infiltrate correlate for multifocal pneumonia. Findings are new from pr ior exam.
[2021-03-01] MEDS: ENOXAPARIN 40 MG/0.4 ML SYRINGE SQ SCH (12:59)
[2021-03-01 13:04] LABS: African American GFR (CKD) >90 (>60 ml/min/1.73 sqM); Anion Gap 10 mmol/L; Blood Urea Nitrogen 29 mg/dL (9-20); Calcium 7.8 mg/dL (8.4-10.2); Carbon Dioxide 21 mmol/L (22-30); Chloride 106 mmol/L (98-107); Glucose 100 mg/dL (74-99); Non-African American GFR(CKD) >90 (>60 ml/min/1.73 sqM); Potassium 4.2 mmol/L (3.5-5.1); Sodium 137 mmol/L (137-145)
--- NOTE | 2021-03-01 13:11 | P.PN ---
Subjective Progress Note Date: 03/01/21 This patient is a 66- year old male who is status-post DAA left hip hemiarthroplasty on 02/28/21. Patient is seen and examined bedside today. Today is post-operative day #1. He states the pain in his left hip is well-controlled at this time. Per nursing he was up to the bedside with physical therapy. Patient is COVID positive and currently requiring 15 L high flow nasal cannula. Chest x-ray was repeated per IM and show bilateral pulmonary infiltrates. Pulmonary has been consulted for COVID pneumonia. Lovenox has been ordered for DVT prophylaxis per IM. Patient has no new complaints during exam. Objective - Vital Signs Vital signs: Vital Signs Temp 98.6 F 03/01/21 12:39 Pulse 102 H 03/01/21 12:39 Resp 20 03/01/21 12:39 BP 110/65 03/01/21 12:39 Pulse Ox 95 03/01/21 12:39 Intake & Output 02/28/21 03/01/21 03/01/21 18:59 06:59 18:59 Intake Total 1480 2080 Output Total 700 500 Balance 780 1580 Intake: IV 1480 Sodium Chloride 0.9% 1, 780 000 ml @ 130 mls/hr IV . Q7H42M [facility] Rx#:[id number] Intake, IV Titration 2080 Amount Sodium Chloride 0.9% 1, 520 000 ml @ 0 mls/hr IV .ST[facility] Rx#:[id number] Sodium Chloride 0.9% 1, 1560 000 ml @ 130 mls/hr IV . Q7H42M [facility] Rx#:[id number] Output: Urine 550 500 Estimated Blood Loss 150 Other: Voiding Method Indwelling Catheter Indwelling Catheter Indwelling Catheter - Exam On examination, patient is sitting up in bed in no acute distress. He is alert and orientated x3. Nasal cannula in place. On inspection of the left hip, there is a Prevena incisional wound vac in place. Mild swelling of the thigh, the thigh is soft and compressible. Motor and sensory function intact of the left lower extremity. Dorsalis pedis pulse +2. The left lower extremity is warm and well perfused. Calf is soft and nontender. Compression cuffs in place bilaterally. - Labs CBC & Chem 7: 02/28/21 18:43 03/01/21 11:21 Labs: Abnormal Lab Results - Last 24 Hours (Table) 02/28/21 02/28/21 03/01/21 Range/Units 18:43 21:22 11:49 Hct 37.4 L (39.0-53.0) % Plt Count 128 L (150-450) k/uL Lymphocytes # 0.5 L (1.0-4.8) k/uL POC Glucose (mg/dL) 124 H 101 H (75-99) mg/dL Microbiology - Last 24 Hours (Table) 02/28/21 08:50 Blood Culture - Preliminary Blood No Growth after 24 hours 02/28/21 08:40 Blood Culture - Preliminary Blood No Growth after 24 hours Assessment and Plan Assessment: Status-post DAA left hip hemiarthroplasty on 02/28/21. Post-operative day #1. Plan: - Weight bear as tolerated on operative leg. Up with assistance and a walker. - Physical therapy for gait and balance training. - Pain management as needed. - Keep Prevena wound vac in place. - DVT prophylaxis per IM. Patient currently on Lovenox. - COVID pneumonia, medical management per IM. - We will follow patient closely. Case management consulted for discharge planning.
[2021-03-01 13:16] LABS: Basophils % (A) 0 %; Eosinophils % (A) 0 %; HCT 35.6 % (39.0-53.0); HGB 12.4 gm/dL (13.0-17.5); Lymphocytes # (A) 0.5 k/uL (1.0-4.8); Lymphocytes % (A) 5 %; MCH 29.8 pg (25.0-35.0); MCHC 34.7 g/dL (31.0-37.0); MCV 85.9 fL (80.0-100.0); Monocytes # (A) 0.3 k/uL (0-1.0); Monocytes % (A) 2 %; Neutrophils # (A) 10.9 k/uL (1.3-7.7); Neutrophils % (A) 93 %; Platelet Count 171 k/uL (150-450); RBC 4.14 m/uL (4.30-5.90); RDW 12.9 % (11.5-15.5); WBC 11.8 k/uL (3.8-10.6)
--- NOTE | 2021-03-01 17:30 | P.CNPUL ---
History of Present Illness Consult date: 03/01/21 Reason for consult: dyspnea, pneumonia History of present illness: 66-year-old male patient with consulting him because of COVID 19 infection. The patient has known history of Parkinson's disease. The patient also has history of major depression and hyperlipidemia as comorbid conditions and he suffers from chronic dysphagia. He also suffers from diverticular disease. The patient presented to the hospital because of weakness and unsteadiness and he has had frequent falls at home. He apparently sustained a fall and he was diagnosed having a left femur fracture and the patient is currently being evaluated by orthopedic surgery. Per history, the patient sustained a fall at home and immediately following that the patient had left hip pain. The patient does have history of frequent falls according to the . The surgical recommendation was hemiarthroplasty for an unstable fracture. The patient was taken to the operating room on 02/28/2021 and the patient underwent a hemiarthroplasty. The patient is postop day #1. Meanwhile, in terms of his COVID 19 infection, the patient is currently afebrile hemodynamically stable. He did have episodes of fever at a time of admission with T-max of 101.6.. He has become progressively more hypoxic during this current hospital stay. Initially was only on 2 L of Oxymizer nasal cannula oxygen requirements progressively got worse and is currently on 15 L by nasal cannula high flow. The chest x-ray revealed patchy bilateral pulmonary infiltrates consistent with COVID 19 related pneumonia. The patient was started on Decadron 6 mg IV on a daily basis. The patient is also on Lovenox 40 mg subcu for DVT prophylaxis. Outpatient medications been resumed. He is on Dilaudid for pain control. He also suffers from chronic hypotension and maintained on midodrine on outpatient basis. Inflammatory markers have not been checked for now. He is currently postop day #1. No nausea. No vomiting. No chest pain. No other complaints otherwise. Review of Systems Constitutional: Reports malaise, Denies chills, Denies fever, generalized weakness and a high-risk for fall Eyes: denies blurred vision, denies pain Ears, nose, mouth and throat: Denies headache, Denies sore throat Cardiovascular: Denies chest pain, Denies shortness of breath Respiratory: Denies cough the patient is also short of breath and currently hypoxic Gastrointestinal: Denies abdominal pain, Denies diarrhea, Denies nausea, Denies vomiting Musculoskeletal: Reports fractures, Reports frequent falls, Reports gait dysfunction, Denies myalgias Integumentary: Denies pruritus, Denies rash Neurological: Denies numbness, the patient has chronic weakness and increased risk of falls and the patient's chronic tremors and parkinsonism Psychiatric: Denies anxiety, patient has chronic depression Endocrine: Denies fatigue, Denies weight change Past Medical History Past Medical History: Dementia, GERD/Reflux, Hyperlipidemia, Neurologic Disorder Additional Past Medical History / Comment(s): Parkinson's disease-R arm worse tremors but also has L arm tremors, dysphagia-always drinks with a straw, hypotension, past bleeding ulcer as a teen with transfusions, diverticular disease, RLS, sinus problems. History of Any Multi-Drug Resistant Organisms: None Reported Past Surgical History: Breast Surgery, Cholecystectomy, Hernia Repair, Tonsillectomy Additional Past Surgical History / Comment(s): sinus and nasal surgery, EGD, colonoscopy, L inguinal hernia repair x2, L breast biopsy. Past Anesthesia/Blood Transfusion Reactions: No Reported Reaction Additional Past Anesthesia/Blood Transfusion Reaction / Comment(s): couldn't urinate after general anesthesia in past Smoking Status: Never smoker - Past Family History Father Family Medical History: Cancer Additional Family Medical History / Comment(s): IN IS 70'S- PANCREATIC CANCER, WAS A SMOKER SINCE AGE 6 Mother Family Medical History: Cancer Additional Family Medical History / Comment(s): AT AGE 61, BREAST CANCER. HYPOTENSION. Medications and Allergies Home Medications Medication Instructions Recorded Confirmed Type Carbidopa/Levodopa 1 tab PO QID 07/29/14 02/27/21 History [Carbidopa-Levodopa 25-100 Tab] Pantoprazole Sodium [Protonix] 40 mg PO DAILY 07/29/14 02/27/21 History Donepezil [Aricept] 10 mg PO HS 02/27/21 02/27/21 History Istradefylline [Nourianz] 20 mg PO DAILY 02/27/21 02/27/21 History Loratadine [Claritin] 10 mg PO BID 02/27/21 02/27/21 History Midodrine [ProAmatine] 5 mg PO BID 02/27/21 02/27/21 History Potassium Chloride [Klor-Con 10 ER] 10 meq PO DAILY 02/27/21 02/27/21 History QUEtiapine XR [SEROquel XR] 150 mg PO HS 02/27/21 02/27/21 History rOPINIRole HCL [Requip XL] 4 mg PO DAILY 02/27/21 02/27/21 History tadalafiL [Tadalafil] 5 mg PO DAILY 02/27/21 02/27/21 History Escitalopram [Lexapro] 10 mg PO HS 02/28/21 02/28/21 History Allergies Allergy/AdvReac Type Severity Reaction Status Date / Time sertraline HCl [From Zoloft] AdvReac Diarrhea Verified 02/27/21 09:01 Physical Exam Vitals: Vital Signs Temp Pulse Pulse Resp BP Pulse Ox 03/01/21 12:39 98.6 F 102 H 20 110/65 95 03/01/21 08:40 88 18 03/01/21 07:00 98.5 F 88 18 131/80 96 03/01/21 01:53 98.1 F 77 18 113/75 97 02/28/21 20:00 98.4 F 68 14 110/70 92 L 02/28/21 18:20 97.8 F 62 20 102/69 93 L Intake and Output 03/01/21 03/01/21 03/01/21 06:59 14:59 22:59 Intake Total 2080 Output Total 500 Balance 1580 Intake: Intake, IV Titration 2080 Amount Sodium Chloride 0.9% 1, 520 000 ml @ 0 mls/hr IV .[facility] Rx#:[id number] Sodium Chloride 0.9% 1, 1560 000 ml @ 130 mls/hr IV . Q7H42M [facility] Rx#:[id number] Output: Urine 500 Other: Voiding Method Indwelling Catheter Gen. appearance the patient is calm breathing is mildly labored and the patient is currently on 15 L nasal cannula. MHead exam was generally normal. There was no scleral icterus or corneal arcus. Mucous membranes were moist. Neck was supple and without jugular venous distension, thyromegaly, or carotid bruits. Carotids were easily palpable bilaterally. There was no adenopathy. Lungs sounds are diminished in the patient's crack in lung bases bilaterally. Cardiac exam revealed the PMI to be normally situated and sized. The rhythm was regular and no extrasystoles were noted during several minutes of auscultation. The first and second heart sounds were normal and physiologic splitting of the second heart sound was noted. There were no murmurs, rubs, clicks, or gallops. Abdominal exam revealed normal bowel sounds. The abdomen was soft, non-tender, and without masses, organomegaly, or appreciable enlargement of the abdominal aorta. Examination of the extremities revealed easily palpable radial, femoral and pedal pulses. There was no cyanosis, clubbing or edema. Surgical wound site over the hip area on the left is dry clean and intact. Dressing on place. The patient has adequate pulses in lower extremity is bilaterally. Neurologically the examination is consistent with Parkinson's disease. No focal neurological deficit. Examination of the skin revealed no evidence of significant rashes, suspicious appearing nevi or other concerning lesions. Results - Laboratory Findings CBC and BMP: 03/01/21 11:03/01/21 11:21 PT/INR, D-dimer PT 11.1 sec (9.0-12.0) 02/27/21 01:52 INR 1.0 (<1.2) 02/27/21 01:52 Abnormal lab findings: Abnormal Labs 02/27/21 02/27/21 02/27/21 01:52 01:52 02:36 WBC RBC Hgb Hct 37.6 L Plt Count 126 L Neutrophils # Lymphocytes # 0.6 L Sodium 133 L Carbon Dioxide BUN 23 H Glucose 104 H POC Glucose (mg/dL) Calcium AST Total Protein Albumin Urine Protein Urine Ketones Urine Blood Urine Bacteria Urine Mucus Coronavirus (PCR) Detected A 02/27/21 02/28/21 02/28/21 02:57 04:16 04:16 WBC RBC 4.27 L Hgb 12.8 L Hct 36.2 L Plt Count 128 L Neutrophils # Lymphocytes # 0.7 L Sodium 131 L Carbon Dioxide BUN Glucose POC Glucose (mg/dL) Calcium 8.0 L AST 115 H Total Protein 6.0 L Albumin 3.3 L Urine Protein Trace H Urine Ketones 1+ H Urine Blood Small H Urine Bacteria Rare H Urine Mucus Moderate H Coronavirus (PCR) 02/28/21 02/28/21 03/01/21 18:43 21:22 11:21 WBC RBC Hgb Hct 37.4 L Plt Count 128 L Neutrophils # Lymphocytes # 0.5 L Sodium Carbon Dioxide 21 L BUN 29 H Glucose 100 H POC Glucose (mg/dL) 124 H Calcium 7.8 L AST Total Protein Albumin Urine Protein Urine Ketones Urine Blood Urine Bacteria Urine Mucus Coronavirus (PCR) 03/01/21 03/01/21 11:21 11:49 WBC 11.8 H RBC 4.14 L Hgb 12.4 L Hct 35.6 L Plt Count Neutrophils # 10.9 H Lymphocytes # 0.5 L Sodium Carbon Dioxide BUN Glucose POC Glucose (mg/dL) 101 H Calcium AST Total Protein Albumin Urine Protein Urine Ketones Urine Blood Urine Bacteria Urine Mucus Coronavirus (PCR) - Diagnostic Findings Chest x-ray: image reviewed Assessment and Plan Plan: 1 acute hypoxic respiratory failure. The patient presented with Covid 19 infection with generalized weakness and falls and subsequently the patient was taken to the operating room and the patient underwent a left hip hemiarthroplasty for a left femur fracture. The patient is currently on 15 L about 2 by nasal cannula and he has developed but the pulmonary infiltrates. This is consistent with Covid 19 related pneumonia. Pulmonary embolism cannot be completely excluded and setting of Covid 19 infection and recent orthopedic surgery/fracture of the femur. 2 acute COVID 19 related pneumonia with secondary respiratory distress and hypoxic respiratory failure 3 left femur fracture and the patient has undergone left hip hemiarthroplasty and the patient is postop day #1 4 Parkinson's disease 5 history of major depression 6 history of increased falls 7 chronic hypotension maintained on midodrine outpatient basis 8 diverticular disease 9. Syndrome 10 chronic dysphagia 11 history of dementia Plan Titrated oxygen flow to maintain a saturation above 90% will benefit from a CT angiogram to rule out pulmonary embolism knowing that the patient has multiple risk factors to undergo PE. check d-dimer levels and check pro-calcitonin levels. Also check LDH and CRP continue Decadron for now Continue Lovenox for DVT prophylaxis Home medications that we resumed Aspiration precautions nontender the patient has chronic dysphagia Pain control with Dilaudid We'll continue to follow.
[2021-03-01 17:59] LABS: C Reactive Protein 14.3 mg/dL (<1.0)
[2021-03-01 18:04] LABS: Glucose,Whole Blood 127 mg/dL (75-99)
[2021-03-01] MEDS ORDERED: ISTRADEFYLLINE 20 MG PO SCH (20:00)
--- NOTE | 2021-03-01 21:55 | CT ---
CT CHEST FOR PULMONARY EMBOLISM. EXAMINATION TYPE: CT chest angio for PE DATE OF EXAM: 03/01/2021 INDICATION: Covid, hypoxic, respiratory failure, elevated d-dimer. CT DLP: 382.2 mGycm, Automated exposure control for dose reduction was used. CONTRAST: Patient injected with 100 mL of Isovue 370. COMPARISON: None TECHNIQUE: CT of the chest is performed on a spiral scan at 2 mm thick sections. Study is performed with intravenous contrast timed for evaluation for pulmonary embolism. This will limit additional po rtions of the evaluation. 3-D MIP images reconstructed by the technologist are reviewed on the compu ter in the coronal and sagittal planes. FINDINGS: No persistent filling defects are evident to suggest an acute pulmonary embolism. No mediastinal or hilar adenopathy enlarged by CT criteria is evident. The ascending aorta diameter at the level of the main pulmonary artery is 3.9 cm. The main pulmonary artery diameter at the bifur cation is 2.4 cm. There is a small left and minimal right pleural effusion. Adjacent compressive atelectasis is present . There are scattered areas of pneumonitis within the periphery of the lung. Correlate for atypical p neumonia. Limited CT section through the upper abdomen are unremarkable. IMPRESSIONS: 1. No acute pulmonary embolism. 2. Small left minimal right pleural effusion with adjacent compressive atelectasis. 3. Scattered mild areas of pneumonitis are nonspecific but can be compatible with atypical pneumonia.
[2021-03-01 21:59] LABS: Glucose,Whole Blood 144 mg/dL (75-99)
[2021-03-01] MEDS: [UNRECOGNIZED DRUG - OTHER] PO SCH (22:05)
[2021-03-01] MEDS: ACETAMINOPHEN TAB 325 MG TAB PO PRN (22:05)
[2021-03-01] MEDS: SENNOSIDES-DOCUSATE SODIUM 1 EACH TAB PO SCH (22:11)
[2021-03-01] MEDS: DONEPEZIL 10 MG TAB PO SCH (22:34)
[2021-03-02] MEDS: ARTIFICIAL TEARS-HYPROMELLOSE DROPS 15 ML BTL BOTH EYES PRN (00:01)
[2021-03-02] MEDS: SODIUM CHLORIDE 0.9% 1,000 ML IV SCH ×4 (05:04→17:49)
[2021-03-02 07:01] LABS: Glucose,Whole Blood 109 mg/dL (75-99)
[2021-03-02] MEDS: ALBUTEROL HFA INHALER INHALATION SCH ×4 (08:08→20:39)
[2021-03-02] MEDS: ASCORBIC ACID 500 MG TAB PO SCH ×2 (09:43→17:40)
[2021-03-02] MEDS: lamoTRIgine 25 MG TAB PO SCH (09:43)
[2021-03-02] MEDS: MIDODRINE 5 MG TAB PO SCH ×2 (09:43→21:30)
[2021-03-02] MEDS: PANTOPRAZOLE 40 MG TABLET PO SCH (09:43)
[2021-03-02] MEDS: CHOLECALCIFEROL 25 MCG (1000 IU) TABLET PO SCH (09:43)
[2021-03-02] MEDS: ZINC SULFATE 220 MG CAP PO SCH (09:43)
[2021-03-02] MEDS: busPIRone HCl 5 MG TAB PO SCH (09:43)
[2021-03-02] MEDS: DEXAMETHASONE SOD PHOSPHATE 10 MG/ML 1 ML VIAL IVP SCH (09:44)
[2021-03-02] MEDS: ENOXAPARIN 40 MG/0.4 ML SYRINGE SQ SCH (09:44)
[2021-03-02] MEDS: CARBIDOPA-LEVODOPA 25-100 MG 1 EACH TAB PO SCH ×4 (09:44→21:30)
--- NOTE | 2021-03-02 10:43 | P.PN ---
Subjective Progress Note Date: 03/02/21 This patient is a 66- year old male who is status-post DAA left hip hemiarthroplasty on 02/28/21. Patient is seen and examined bedside today. Today is post-operative day #2. He states the pain in his left hip is well-controlled at this time. He is a full assist per physical therapy, they are recommending discharge to rehab. Patient is COVID positive and pulmonology has been consulted for COIVD pneumon ia. Lovenox has been ordered for DVT prophylaxis per IM. Patient has no new complaints during exam. Objective - Vital Signs Vital signs: Vital Signs Temp 99.7 F H 03/02/21 05:22 Pulse 68 03/02/21 05:22 Resp 20 03/01/21 20:00 BP 121/72 03/02/21 05:22 Pulse Ox 100 03/02/21 05:22 Intake & Output 03/01/21 03/02/21 03/02/21 18:59 06:59 18:59 Intake Total 1490 Balance 1490 Intake: IV 1040 Sodium Chloride 0.9% 1, 1040 000 ml @ 130 mls/hr IV . Q7H42M [facility] Rx#:[id number] Oral 450 Other: Voiding Method Indwelling Catheter Indwelling Catheter # Voids 3 1 - Exam On examination, patient is sitting up in bed in no acute distress. He is alert and orientated x3. Nasal cannula in place. On inspection of the left hip, there is a Prevena incisional wound vac in place. Mild swelling of the thigh, the thigh is soft and compressible. Motor and sensory function intact of the left lower extremity. Dorsalis pedis pulse +2. The left lower extremity is warm and well perfused. Calf is soft and nontender. Compression cuffs in place bilaterally. - Labs CBC & Chem 7: 03/01/21 11:21 03/01/21 11:21 Labs: Abnormal Lab Results - Last 24 Hours (Table) 03/01/21 03/01/21 03/01/21 Range/Units 11:21 11:21 11:21 WBC 11.8 H (3.8-10.6) k/uL RBC 4.14 L (4.30-5.90) m/uL Hgb 12.4 L (13.0-17.5) gm/dL Hct 35.6 L (39.0-53.0) % Neutrophils # 10.9 H (1.3-7.7) k/uL Lymphocytes # 0.5 L (1.0-4.8) k/uL D-Dimer (<0.60) mg/L FEU Carbon Dioxide 21 L (22-30) mmol/L BUN 29 H (9-20) mg/dL Glucose 100 H (74-99) mg/dL POC Glucose (mg/dL) (75-99) mg/dL Calcium 7.8 L (8.4-10.2) mg/dL Lactate Dehydrogenase (313-618) U/L C-Reactive Protein (<1.0) mg/dL Procalcitonin 0.11 H (0.02-0.09) ng/mL 03/01/21 03/01/21 03/01/21 Range/Units 11:49 17:09 17:09 WBC (3.8-10.6) k/uL RBC (4.30-5.90) m/uL Hgb (13.0-17.5) gm/dL Hct (39.0-53.0) % Neutrophils # (1.3-7.7) k/uL Lymphocytes # (1.0-4.8) k/uL D-Dimer (<0.60) mg/L FEU Carbon Dioxide (22-30) mmol/L BUN (9-20) mg/dL Glucose (74-99) mg/dL POC Glucose (mg/dL) 101 H (75-99) mg/dL Calcium (8.4-10.2) mg/dL Lactate Dehydrogenase 948 H (313-618) U/L C-Reactive Protein 14.3 H (<1.0) mg/dL Procalcitonin 0.10 H (0.02-0.09) ng/mL 03/01/21 03/01/21 03/01/21 Range/Units 17:09 18:02 21:58 WBC (3.8-10.6) k/uL RBC (4.30-5.90) m/uL Hgb (13.0-17.5) gm/dL Hct (39.0-53.0) % Neutrophils # (1.3-7.7) k/uL Lymphocytes # (1.0-4.8) k/uL D-Dimer 1.54 H (<0.60) mg/L FEU Carbon Dioxide (22-30) mmol/L BUN (9-20) mg/dL Glucose (74-99) mg/dL POC Glucose (mg/dL) 127 H 144 H (75-99) mg/dL Calcium (8.4-10.2) mg/dL Lactate Dehydrogenase (313-618) U/L C-Reactive Protein (<1.0) mg/dL Procalcitonin (0.02-0.09) ng/mL 03/02/21 Range/Units 06:59 WBC (3.8-10.6) k/uL RBC (4.30-5.90) m/uL Hgb (13.0-17.5) gm/dL Hct (39.0-53.0) % Neutrophils # (1.3-7.7) k/uL Lymphocytes # (1.0-4.8) k/uL D-Dimer (<0.60) mg/L FEU Carbon Dioxide (22-30) mmol/L BUN (9-20) mg/dL Glucose (74-99) mg/dL POC Glucose (mg/dL) 109 H (75-99) mg/dL Calcium (8.4-10.2) mg/dL Lactate Dehydrogenase (313-618) U/L C-Reactive Protein (<1.0) mg/dL Procalcitonin (0.02-0.09) ng/mL Microbiology - Last 24 Hours (Table) 02/28/21 08:50 Blood Culture - Preliminary Blood No Growth after 24 hours 02/28/21 08:40 Blood Culture - Preliminary Blood No Growth after 24 hours Assessment and Plan Assessment: Status-post DAA left hip hemiarthroplasty on 02/28/21. Post-operative day #2. COVID positive. Plan: - Weight bear as tolerated on operative leg. Up with assistance and a walker. - Physical therapy for gait and balance training. - Pain management as needed. - Keep Prevena wound vac in place for 7 days. After 7 days, remove and apply dry dressing. - DVT prophylaxis per IM. Patient currently on Lovenox. - COVID pneumonia, medical management per IM. - We will follow patient peripherally at this time. He should follow-up in the office with Dr. Rodriguez in two weeks.
[2021-03-02] MEDS: INSULIN ASPART (NovoLOG) 100 UNIT/ML VIAL SQ SCH ×4 (11:08→21:53)
[2021-03-02] MEDS: LACTATED RINGERS 1,000 ML IV SCH (11:08)
[2021-03-02 11:46] LABS: Glucose,Whole Blood 130 mg/dL (75-99)
--- NOTE | 2021-03-02 12:44 | P.PN ---
Subjective Progress Note Date: 03/02/21 Principal diagnosis: COVID-19 pneumonia 66-year-old male patient with consulting him because of COVID 19 infection. The patient has known history of Parkinson's disease. The patient also has history of major depression and hyperlipidemia as comorbid conditions and he suffers f rom chronic dysphagia. He also suffers from diverticular disease. The patient presented to the hospital because of weakness and unsteadiness and he has had frequent falls at home. He apparently sustained a fall and he was diagnosed having a left femur fracture and the patient is currently being evaluated by orthopedic surgery. Per history, the patient sustained a fall at home and immediately following that the patient had left hip pain. The patient does have history of frequent falls according to the . The surgical recommendation was hemiarthroplasty for an unstable fracture. The patient was taken to the operating room on 02/28/2021 and the patient underwent a hemiarthroplasty. The patient is postop day #1. Meanwhile, in terms of his COVID 19 infection, the patient is currently afebrile hemodynamically stable. He did have episodes of fever at a time of admission with T-max of 101.6.. He has become progressively more hypoxic during this current hospital stay. Initially was only on 2 L of Oxymizer nasal cannula oxygen requirements progressively got worse and is currently on 15 L by nasal cannula high flow. The chest x-ray revealed patchy bilateral pulmonary infiltrates consistent with COVID 19 related pneumonia. The patient was started on Decadron 6 mg IV on a daily basis. The patient is also on Lovenox 40 mg subcu for DVT prophylaxis. Outpatient medications been resumed. He is on Dilaudid for pain control. He also suffers from chronic hypotension and main tained on midodrine on outpatient basis. Inflammatory markers have not been checked for now. He is currently postop day #1. No nausea. No vomiting. No chest pain. No other complaints otherwise. The patient is seen today 03/02/2021 in follow-up on the observation unit. Postoperative day #2. He is currently sitting up at the bedside with physical therapy. Currently maintaining O2 saturations up to 100% on 10 L high flow nasal cannula. CT angiogram ruled out pulmonary embolism. There is a small bilateral effusions, compressive atelectasis, scattered mild areas of pneumonitis which are nonspecific and compatible with COVID-19 pneumonia. Blood cultures revealed no growth. He is maintained on Decadron, Lovenox, vitamin supplements. LDH 948. C-reactive protein 14.3. Pro-calcitonin 0.10. D-dimer 1.54. He has 0.9 normal saline at 130 ML's per hour. Objective - Vital Signs Vital signs: Vital Signs Temp 99.7 F H 03/02/21 05:22 Pulse 68 03/02/21 05:22 Resp 20 03/01/21 20:00 BP 121/72 03/02/21 05:22 Pulse Ox 100 03/02/21 05:22 Intake & Output 03/01/21 03/02/21 03/02/21 18:59 06:59 18:59 Intake Total 1490 Balance 1490 Intake: IV 1040 Sodium Chloride 0.9% 1, 1040 000 ml @ 130 mls/hr IV . Q7H42M [facility] Rx#:[id number] Oral 450 Other: Voiding Method Indwelling Catheter Indwelling Catheter # Voids 3 1 - Exam Gen. appearance: a 66-year-old male patient being up at the bedside with physical therapy, on 10 L high flow nasal cannula with O2 saturation 100% . MHead exam was generally normal. There was no scleral icterus or corneal arcus. Mucous membranes were moist. Neck was supple and without jugular venous distension, thyromegaly, or carotid bruits. Carotids were easily palpable bilaterally. There was no adenopathy. Lungs sounds are diminished in the patient's crack in lung bases bilaterally. Cardiac exam revealed the PMI to be normally situated and sized. The rhythm was regular and no extrasystoles were noted during several minutes of auscultation. The first and second heart sounds were normal and physiologic splitting of the second heart sound was noted. There were no murmurs, rubs, clicks, or gallops. Abdominal exam revealed normal bowel sounds. The abdomen was soft, non-tender, and without masses, organomegaly, or appreciable enlargement of the abdominal aorta. Examination of the extremities revealed easily palpable radial, femoral and pedal pulses. There was no cyanosis, clubbing or edema. Surgical wound site over the hip area on the left is dry clean and intact. Dressing on place. The patient has adequate pulses in lower extremity is bilaterally. Neurologically the examination is consistent with Parkinson's disease. No focal neurological deficit. Examination of the skin revealed no evidence of significant rashes, suspicious appearing nevi or other concerning lesions. - Labs CBC & Chem 7: 03/01/21 11:21 03/01/21 11:21 Labs: Abnormal Lab Results - Last 24 Hours (Table) 03/01/21 03/01/21 03/01/21 Range/Units 11:21 11:21 11:21 WBC 11.8 H (3.8-10.6) k/uL RBC 4.14 L (4.30-5.90) m/uL Hgb 12.4 L (13.0-17.5) gm/dL Hct 35.6 L (39.0-53.0) % Neutrophils # 10.9 H (1.3-7.7) k/uL Lymphocytes # 0.5 L (1.0-4.8) k/uL D-Dimer (<0.60) mg/L FEU Carbon Dioxide 21 L (22-30) mmol/L BUN 29 H (9-20) mg/dL Glucose 100 H (74-99) mg/dL POC Glucose (mg/dL) (75-99) mg/dL Calcium 7.8 L (8.4-10.2) mg/dL Lactate Dehydrogenase (313-618) U/L C-Reactive Protein (<1.0) mg/dL Procalcitonin 0.11 H (0.02-0.09) ng/mL 03/01/21 03/01/21 03/01/21 Range/Units 17:09 17:09 17:09 WBC (3.8-10.6) k/uL RBC (4.30-5.90) m/uL Hgb (13.0-17.5) gm/dL Hct (39.0-53.0) % Neutrophils # (1.3-7.7) k/uL Lymphocytes # (1.0-4.8) k/uL D-Dimer 1.54 H (<0.60) mg/L FEU Carbon Dioxide (22-30) mmol/L BUN (9-20) mg/dL Glucose (74-99) mg/dL POC Glucose (mg/dL) (75-99) mg/dL Calcium (8.4-10.2) mg/dL Lactate Dehydrogenase 948 H (313-618) U/L C-Reactive Protein 14.3 H (<1.0) mg/dL Procalcitonin 0.10 H (0.02-0.09) ng/mL 03/01/21 03/01/21 03/02/21 Range/Units 18:02 21:58 06:59 WBC (3.8-10.6) k/uL RBC (4.30-5.90) m/uL Hgb (13.0-17.5) gm/dL Hct (39.0-53.0) % Neutrophils # (1.3-7.7) k/uL Lymphocytes # (1.0-4.8) k/uL D-Dimer (<0.60) mg/L FEU Carbon Dioxide (22-30) mmol/L BUN (9-20) mg/dL Glucose (74-99) mg/dL POC Glucose (mg/dL) 127 H 144 H 109 H (75-99) mg/dL Calcium (8.4-10.2) mg/dL Lactate Dehydrogenase (313-618) U/L C-Reactive Protein (<1.0) mg/dL Procalcitonin (0.02-0.09) ng/mL 03/02/21 Range/Units 11:44 WBC (3.8-10.6) k/uL RBC (4.30-5.90) m/uL Hgb (13.0-17.5) gm/dL Hct (39.0-53.0) % Neutrophils # (1.3-7.7) k/uL Lymphocytes # (1.0-4.8) k/uL D-Dimer (<0.60) mg/L FEU Carbon Dioxide (22-30) mmol/L BUN (9-20) mg/dL Glucose (74-99) mg/dL POC Glucose (mg/dL) 130 H (75-99) mg/dL Calcium (8.4-10.2) mg/dL Lactate Dehydrogenase (313-618) U/L C-Reactive Protein (<1.0) mg/dL Procalcitonin (0.02-0.09) ng/mL Microbiology - Last 24 Hours (Table) 02/28/21 08:40 Blood Culture - Preliminary Blood No Growth after 48 hours 02/28/21 08:50 Blood Culture - Preliminary Blood No Growth after 48 hours Assessment and Plan Assessment: 1 acute hypoxic respiratory failure. The patient presented with Covid 19 infection with generalized weakness and falls and subsequently the patient was taken to the operating room and the patient underwent a left hip hemiarthroplasty for a left femur fracture. The patient is currently on 10 L high flow nasal cannula and he has developed but the pulmonary infiltrates. This is consistent with Covid 19 related pneumonia. Pulmonary embolism ruled out. 2 acute COVID 19 related pneumonia with secondary respiratory distress and hypoxic respiratory failure 3 left femur fracture and the patient has undergone left hip hemiarthroplasty and the patient is postop day #2 4 Parkinson's disease 5 history of major depression 6 history of increased falls 7 chronic hypotension maintained on midodrine outpatient basis 8 diverticular disease 9. Syndrome 10 chronic dysphagia 11 history of dementia Plan: The patient was seen and evaluated by Dr. Antonio CT angiogram ruled out pulmonary embolism Titrate down the FiO2 as tolerated Increase his activity as tolerated Continue Decadron, Lovenox, vitamin supplements Follow-up inflammatory markers in the a.m. We will continue to follow
--- NOTE | 2021-03-02 13:37 | P.PN ---
Subjective Progress Note Date: 03/02/21 Elie Mendoza is a 66 yo M with PMH of parkinson disease, HLD, GERD, major depression who presented to the ED after a fall at home. He states that he had been unsteady at home and has had frequent falls. He sustained L sided hip pain after the fall. On initial presentation vitals were stable, labs on review overall unremarkable. He was COVID positive. Hip XR showing acute subcapital fracture of the L femur. Pt currently endorses hip pain, denies chest pain, fever, chills, shortness of breath, cough. 03/01/2021 status post direct anterior left hip arthroplasty, postop day #1. Tolerated procedure well. Pain currently controlled, recently medicated with [place].Maintained on Covid regimen. Oxygen requirements worsened, increased to 15 L high flow nasal cannula. T-max 99.3., Blood cultures pending. Denies chest pain, palpitations. 03/02/2021 maintaining O2 sats in the 90s on 8 L nasal cannula O2. PE ruled out per CTA report. Compressive atelectasis, small bilateral effusions with scattered nonspecific areas of pneumonitis, nonspecific, compatible with COVID- 19 pneumonia. T-max 100.2. Pain controlled. Elevated d-dimer, pro-calcitonin, CRP and LDH. PT reporting patient currently does not have sitting balance. Objective - Vital Signs Vital signs: Vital Signs Temp 98.7 F 03/02/21 12:40 Pulse 88 03/02/21 12:40 Resp 18 03/02/21 12:40 BP 116/57 03/02/21 12:40 Pulse Ox 93 L 03/02/21 12:40 Intake & Output 03/01/21 03/02/21 03/02/21 18:59 06:59 18:59 Intake Total 1490 Output Total 500 Balance 1490 -500 Intake: IV 1040 Sodium Chloride 0.9% 1, 1040 000 ml @ 130 mls/hr IV . Q7H42M [facility] Rx#:[id number] Oral 450 Output: Urine 500 Other: Voiding Method Indwelling Catheter Indwelling Catheter # Voids 3 1 - Exam General: Alert and oriented 3, Sitting up in bed, NAD, respiratory effort increased. HEENT: normocephalic, atraumatic, oral mucosa moist Neck: supple, no JVD, CV: RRR, no murmur Lungs: normal effort, bilateral bases diminished Abd: soft, nontender, non distended, positive bowel sounds Neuro: No focal deficit. Parkinson tremors. Skin: warm and dry. Left hip dressing clean dry and intact. - Labs CBC & Chem 7: 03/01/21 11:21 03/01/21 11:21 Labs: Abnormal Lab Results - Last 24 Hours (Table) 03/01/21 03/01/21 03/01/21 Range/Units 11:21 17:09 17:09 D-Dimer (<0.60) mg/L FEU POC Glucose (mg/dL) (75-99) mg/dL Lactate Dehydrogenase 948 H (313-618) U/L C-Reactive Protein 14.3 H (<1.0) mg/dL Procalcitonin 0.11 H 0.10 H (0.02-0.09) ng/mL 03/01/21 03/01/21 03/01/21 Range/Units 17:09 18:02 21:58 D-Dimer 1.54 H (<0.60) mg/L FEU POC Glucose (mg/dL) 127 H 144 H (75-99) mg/dL Lactate Dehydrogenase (313-618) U/L C-Reactive Protein (<1.0) mg/dL Procalcitonin (0.02-0.09) ng/mL 03/02/21 03/02/21 Range/Units 06:59 11:44 D-Dimer (<0.60) mg/L FEU POC Glucose (mg/dL) 109 H 130 H (75-99) mg/dL Lactate Dehydrogenase (313-618) U/L C-Reactive Protein (<1.0) mg/dL Procalcitonin (0.02-0.09) ng/mL Microbiology - Last 24 Hours (Table) 02/28/21 08:40 Blood Culture - Preliminary Blood No Growth after 48 hours 02/28/21 08:50 Blood Culture - Preliminary Blood No Growth after 48 hours Assessment and Plan Assessment: 1. L femur fracture, status post direct anterior left hip arthroplasty 2. COVID pneumonia. 3. Hypoxic respiratory failure secondary to the above, compressive atelectasis 4. Parkinson disease. 5. GERD. 6. Major depression. Plan: Continue on current medication regime, monitoring, symptomatic treatment. PT/OT. Continue with Covid cocktail. Pulmonary consulted. Aggressive pulmonary toileting with incentive spirometer reinforced. Pain management. Follow closely with pulmonary. The impression and plan of care has been dictated as directed. : I performed a history and examination of this patient, discussed the same with the dictator. I agree with the dictator's note ,documented as a scribe. Any additional findings or plans will be noted.
[2021-03-02 17:30] LABS: Glucose,Whole Blood 136 mg/dL (75-99)
[2021-03-02 19:49] LABS: Basophils % (A) 0 %; Eosinophils % (A) 0 %; HGB 9.8 gm/dL (13.0-17.5); Lymphocytes # (A) 0.2 k/uL (1.0-4.8); Lymphocytes % (A) 3 %; MCHC 36.6 g/dL (31.0-37.0); MCV 84.6 fL (80.0-100.0); Monocytes # (A) 0.3 k/uL (0-1.0); Monocytes % (A) 5 %; Neutrophils # (A) 5.2 k/uL (1.3-7.7); Neutrophils % (A) 91 %; Platelet Count 161 k/uL (150-450); RBC 3.18 m/uL (4.30-5.90); RDW 12.7 % (11.5-15.5); WBC 5.7 k/uL (3.8-10.6)
[2021-03-02 20:21] LABS: HCT 26.9 % (39.0-53.0)
[2021-03-02] MEDS: DONEPEZIL 10 MG TAB PO SCH (21:30)
[2021-03-02] MEDS: SENNOSIDES-DOCUSATE SODIUM 1 EACH TAB PO SCH (21:30)
[2021-03-02] MEDS: ESCITALOPRAM 10 MG TAB PO SCH (21:30)
[2021-03-02] MEDS: [UNRECOGNIZED DRUG - OTHER] PO SCH (21:30)
[2021-03-02 21:35] LABS: Glucose,Whole Blood 145 mg/dL (75-99)
[2021-03-03] MEDS: HYDROcodone/APAP 5-325MG 1 EACH TAB PO PRN (05:53)
[2021-03-03 07:16] LABS: Glucose,Whole Blood 107 mg/dL (75-99)
[2021-03-03] MEDS: INSULIN ASPART (NovoLOG) 100 UNIT/ML VIAL SQ SCH ×4 (07:26→22:34)
[2021-03-03] MEDS: LACTATED RINGERS 1,000 ML IV SCH (07:27)
[2021-03-03] MEDS: ALBUTEROL HFA INHALER INHALATION SCH ×4 (08:39→21:45)
[2021-03-03] MEDS: PIPERACILLIN-TAZOBACTAM 3.375 GM in SODIUM CHLORIDE 0.9% 100 ML IVPB SCH ×2 (09:15→15:42)
[2021-03-03] MEDS: PANTOPRAZOLE 40 MG TABLET PO SCH (09:16)
[2021-03-03] MEDS: CARBIDOPA-LEVODOPA 25-100 MG 1 EACH TAB PO SCH ×4 (09:16→22:21)
[2021-03-03] MEDS: SODIUM CHLORIDE 0.9% 1,000 ML IV SCH ×3 (09:16→22:35)
[2021-03-03] MEDS: CHOLECALCIFEROL 25 MCG (1000 IU) TABLET PO SCH (09:16)
[2021-03-03] MEDS: ZINC SULFATE 220 MG CAP PO SCH (09:16)
[2021-03-03] MEDS: ENOXAPARIN 40 MG/0.4 ML SYRINGE SQ SCH (09:16)
[2021-03-03] MEDS: ASCORBIC ACID 500 MG TAB PO SCH ×2 (09:16→17:36)
[2021-03-03] MEDS: DEXAMETHASONE SOD PHOSPHATE 10 MG/ML 1 ML VIAL IVP SCH (09:16)
[2021-03-03] MEDS: MIDODRINE 5 MG TAB PO SCH ×2 (09:17→22:21)
[2021-03-03] MEDS: lamoTRIgine 25 MG TAB PO SCH (09:17)
--- NOTE | 2021-03-03 09:31 | XR ---
EXAMINATION TYPE: XR chest 1V portable DATE OF EXAM: 03/03/2021 COMPARISON: 03/01/2021 HISTORY: Fever TECHNIQUE: Single frontal view of the chest is obtained. FINDINGS: There are now patchy bilateral areas of infiltrate. No sizable pleural effusion or pneumot horax. Arthropathy of the shoulders. IMPRESSION: Patchy bilateral infiltrate correlate for multifocal pneumonia. Findings are new from pr ior exam.
--- NOTE | 2021-03-03 11:06 | P.PN ---
Subjective Progress Note Date: 03/03/21 66-year-old male patient with consulting him because of COVID 19 infection. The patient has known history of Parkinson's disease. The patient also has history of major depression and hyperlipidemia as comorbid conditions and he suffers from chronic dysphagia. He also suffers from diverticular disease. The patient presented to the hospital because of weakness and unsteadiness and he has had frequent falls at home. He apparently sustained a fall and he was diagnosed having a left femur fracture and the patient is currently being evaluated by orthopedic surgery. Per history, the patient sustained a fall at home and immediately following that the patient had left hip pain. The patient does have history of frequent falls according to the . The surgical recommendation was hemiarthroplasty for an unstable fracture. The patient was taken to the operating room on 02/28/2021 and the patient underwent a hemiarthroplasty. The patient is postop day #1. Meanwhile, in terms of his COVID 19 infection, the patient is currently afebrile hemodynamically stable. He did have episodes of fever at a time of admission with T-max of 101.6.. He has become progressively more hypoxic during this [facility] hospital stay. Initially was only on 2 L of Oxymizer nasal cannula oxygen requirements progressively got worse and is currently on 15 L by nasal cannula high flow. The chest x-ray revealed patchy bilateral pulmonary infiltrates consistent with COVID 19 related pneumonia. The patient was started on Decadron 6 mg IV on a daily basis. The patient is also on Lovenox 40 mg subcu for DVT prophylaxis. Outpatient medications been resumed. He is on Dilaudid for pain control. He also suffers from chronic hypotension and maintained on midodrine on outpatient basis. Inflammatory markers have not been checked for now. He is currently postop day #1. No nausea. No vomiting. No chest pain. No other complaints otherwise. The patient is seen today 03/02/2021 in follow-up on the observation unit. Postoperative day #2. He is currently sitting up at the bedside with physical therapy. Currently maintaining O2 saturations up to 100% on 10 L high flow nasal cannula. CT angiogram ruled out pulmonary embolism. There is a small bilateral effusions, compressive atelectasis, scattered mild areas of pneumonitis which are nonspecific and compatible with COVID-19 pneumonia. Blood cultures revealed no growth. He is maintained on Decadron, Lovenox, vitamin supplements. LDH 948. C-reactive protein 14.3. Pro-calcitonin 0.10. D-dimer 1.54. He has 0.9 normal saline at 130 ML's per hour. 03/03/2021, the patient is postop day #3. Condition essentially unchanged compared to yesterday. He is nonverbal. He is nonambulatory. He is essentially in bed. Oral intake is minimal and the patient is not eating at this point in time. I saw the breakfast sitting at the bedside. He has a weak cough. Unable to bring up any sputum. His breathing is nonlabored. The patient remains on 40% oxygen by nasal cannula. A chest x-ray still showing some limited basilar infiltrates that were seen earlier on the CAT scan of the chest. He remains on Decadron for COVID 19 related infection/pneumonia. His glucose today is at 107. No new labs are available from today. No issues with pain. He is alert. He opens up his eyes. He has resting tremors and he has extensive stiffness related to his Parkinson's disease. His Parkinson's quite advanced at this point in time. Meanwhile, the patient was found to the pro- calcitonin level of 0.1. He was started on IV Zosyn for any potential aspir ation pneumonia. Objective - Vital Signs Vital signs: Vital Signs Temp 101.6 F H 03/03/21 05:56 Pulse 83 03/03/21 05:56 Resp 16 03/02/21 21:38 BP 135/73 03/03/21 05:56 Pulse Ox 94 L 03/03/21 05:56 Intake & Output 03/02/21 03/03/21 03/03/21 18:59 06:59 18:59 Intake Total 2080 Output Total 500 Balance -500 2080 Intake: IV 1040 Sodium Chloride 0.9% 1, 1040 000 ml @ 130 mls/hr IV . Q7H42M [facility] Rx#:[id number] Intake, IV Titration 1040 Amount Sodium Chloride 0.9% 1, 1040 000 ml @ 130 mls/hr IV . Q7H42M [facility] Rx#:[id number] Output: Urine 500 Other: Voiding Method Indwelling Catheter Indwelling Catheter - Exam Gen. appearance: a 66-year-old male patient being up at the bedside with physical therapy, on 4 L high flow nasal cannula with O2 saturation 100% . MHead exam was generally normal. There was no scleral icterus or corneal arcus. Mucous membranes were moist. Neck was supple and without jugular venous distension, thyromegaly, or carotid bruits. Carotids were easily palpable bilaterally. There was no adenopathy. Lungs sounds are diminished in the patient's crack in lung bases bilaterally. Cardiac exam revealed the PMI to be normally situated and sized. The rhythm was regular and no extrasystoles were noted during several minutes of auscultation. The first and second heart sounds were normal and physiologic splitting of the second heart sound was noted. There were no murmurs, rubs, clicks, or gallops. Abdominal exam revealed normal bowel sounds. The abdomen was soft, non-tender, and without masses, organomegaly, or appreciable enlargement of the abdominal aorta. Examination of the extremities revealed easily palpable radial, femoral and pedal pulses. There was no cyanosis, clubbing or edema. Surgical wound site over the hip area on the left is dry clean and intact. Dressing on place. The patient has adequate pulses in lower extremity is bilaterally. Neurologically the examination is consistent with Parkinson's disease. No focal neurological deficit. Examination of the skin revealed no evidence of significant rashes, suspicious appearing nevi or other concerning lesions. - Labs CBC & Chem 7: 03/02/21 19:31 03/01/21 11:21 Labs: Abnormal Lab Results - Last 24 Hours (Table) 03/02/21 03/02/21 03/02/21 Range/Units 11:44 17:28 19:31 RBC 3.18 L (4.30-5.90) m/uL Hgb 9.8 L D (13.0-17.5) gm/dL Hct 26.9 L (39.0-53.0) % Lymphocytes # 0.2 L (1.0-4.8) k/uL POC Glucose (mg/dL) 130 H 136 H (75-99) mg/dL 03/02/21 03/03/21 Range/Units 21:29 07:05 RBC (4.30-5.90) m/uL Hgb (13.0-17.5) gm/dL Hct (39.0-53.0) % Lymphocytes # (1.0-4.8) k/uL POC Glucose (mg/dL) 145 H 107 H (75-99) mg/dL Microbiology - Last 24 Hours (Table) 02/28/21 08:40 Blood Culture - Preliminary Blood No Growth after 48 hours 02/28/21 08:50 Blood Culture - Preliminary Blood No Growth after 48 hours Assessment and Plan Plan: 1 acute hypoxic respiratory failure. The patient presented with Covid 19 infection with generalized weakness and falls and subsequently the patient was taken to the operating room and the patient underwent a left hip hemiarthroplasty for a left femur fracture. The patient is currently on 4 L by nasal cannula and he has developed but the pulmonary infiltrates. This is consistent with Covid 19 related pneumonia. It was negative for pulmonary embolism. Aspiration is felt to be possible although less likely and the patient is currently covered with a combination of Decadron for COVID 19 related pneumonia and Zosyn for aspiration. The pro-calcitonin level was mildly elevated at 0.1 2 acute COVID 19 related pneumonia with secondary respiratory distress and hypoxic respiratory failure 3 left femur fracture and the patient has undergone left hip hemiarthroplasty and the patient is postop day # 52 4 Parkinson's disease 5 history of major depression 6 history of increased falls 7 chronic hypotension maintained on midodrine outpatient basis 8 diverticular disease 9. Syndrome 10 chronic dysphagia 11 history of dementia Plan Titrated oxygen flow to maintain a saturation above 90% , Currently weaned down to 4 by nasal cannula will benefit from a CT angiogram to rule out pulmonary embolism knowing that the patient has multiple risk factors to undergo PE. continue Decadron for nowGeneral with IV Zosyn Continue Lovenox for DVT prophylaxis Home medications that we resumed Aspiration precautions nontender the patient has chronic dysphagia Pain control with DilaudidNot much can be offered from hours practice knowing that the patient has been excessively debilitated. As psychomotor slowing, generalized body stiffness, resting tremors, for swallow, very poor baseline performance and functional status. Such, his prognosis will be extremely poor. Strongly advise CODE STATUS change.
[2021-03-03 11:51] VITALS: BMI 21.5
[2021-03-03 12:21] LABS: Glucose,Whole Blood 122 mg/dL (75-99)
--- NOTE | 2021-03-03 13:05 | P.PN ---
Subjective Progress Note Date: 03/03/21 Elie Mendoza is a 66 yo M with PMH of parkinson disease, HLD, GERD, major depression who presented to the ED after a fall at home. He states that he had been unsteady at home and has had frequent falls. He sustained L sided hip pain after the fall. On initial presentation vitals were stable, labs on review overall unremarkable. He was COVID positive. Hip XR showing acute subcapital fracture of the L femur. Pt currently endorses hip pain, denies chest pain, fever, chills, shortness of breath, cough. 03/01/2021 status post direct anterior left hip arthroplasty, postop day #1. Tolerated procedure well. Pain currently controlled, recently medicated with Martin.Maintained on Covid regimen. Oxygen requirements worsened, increased to 15 L high flow nasal cannula. T-max 99.3., Blood cultures pending. Denies chest pain, palpitations. 03/02/2021 maintaining O2 sats in the 90s on 8 L nasal cannula O2. PE ruled out per CTA report. Compressive atelectasis, small bilateral effusions with scattered nonspecific areas of pneumonitis, nonspecific, compatible with COVID- 19 pneumonia. T-max 100.2. Pain controlled. Elevated d-dimer, pro-calcitonin, CRP and LDH. PT reporting patient currently does not have sitting balance. 03/03/2021 oxygen requirements decreased to 4 L. T-max 101.6. Maintained on Covid cocktail. Pain currently controlled. Fever workup initiated including empiric Zosyn for potential aspiration pneumonia. Objective - Vital Signs Vital signs: Vital Signs Temp 99.1 F 03/03/21 11:30 Pulse 83 03/03/21 05:56 Resp 16 03/02/21 21:38 BP 135/73 03/03/21 05:56 Pulse Ox 94 L 03/03/21 05:56 Intake & Output 03/02/21 03/03/21 03/03/21 18:59 06:59 18:59 Intake Total 2080 Output Total 500 Balance -500 2080 Weight 68.039 kg Intake: IV 1040 Sodium Chloride 0.9% 1, 1040 000 ml @ 130 mls/hr IV . Q7H42M [facility] Rx#:[id number] Intake, IV Titration 1040 Amount Sodium Chloride 0.9% 1, 1040 000 ml @ 130 mls/hr IV . Q7H42M [facility] Rx#:[id number] Output: Urine 500 Other: Voiding Method Indwelling Catheter Indwelling Catheter Indwelling Catheter - Exam General: Alert and oriented 3, generalized body stiffness,,Sitting up in bed, NAD, respiratory effort increased. HEENT: normocephalic, atraumatic, oral mucosa moist Neck: supple, no JVD, CV: RRR, no murmur Lungs: normal effort, bilateral bases diminished Abd: soft, nontender, non distended, positive bowel sounds Neuro: No focal deficit. Parkinson tremors. Skin: warm and dry. Left hip dressing clean dry and intact. - Labs CBC & Chem 7: 03/02/21 19:31 03/01/21 11:21 Labs: Abnormal Lab Results - Last 24 Hours (Table) 03/02/21 03/02/21 03/02/21 Range/Units 17:28 19:31 21:29 RBC 3.18 L (4.30-5.90) m/uL Hgb 9.8 L D (13.0-17.5) gm/dL Hct 26.9 L (39.0-53.0) % Lymphocytes # 0.2 L (1.0-4.8) k/uL POC Glucose (mg/dL) 136 H 145 H (75-99) mg/dL 03/03/21 Range/Units 07:05 RBC (4.30-5.90) m/uL Hgb (13.0-17.5) gm/dL Hct (39.0-53.0) % Lymphocytes # (1.0-4.8) k/uL POC Glucose (mg/dL) 107 H (75-99) mg/dL Microbiology - Last 24 Hours (Table) 02/28/21 08:50 Blood Culture - Preliminary Blood No Growth after 72 hours 02/28/21 08:40 Blood Culture - Preliminary Blood No Growth after 72 hours Assessment and Plan Assessment: 1. L femur fracture, status post direct anterior left hip arthroplasty 2. COVID pneumonia. Elevated pro-calcitonin. Possible underlying aspiration pneumonia in a patient with Parkinson's 3. Acute Hypoxic respiratory failure secondary to the above, compressive atelectasis 4. Parkinson disease. 5. GERD. 6. Major depression. Plan: Continue on current medication regime, monitoring, symptomatic treatment. Blood cultures repeated. Aspiration precautions .Speech therapy consulted for swallow evaluation in this gentleman with Parkinsons. Empiric Zosyn added to med regimen, follow-up chest x-ray.PT/OT. Maintain Covid cocktail. Aggressive pulmonary toileting with incentive spirometer reinforced. Pain management. Follow closely with pulmonary. The impression and plan of care has been dictated as directed. : I performed a history and examination of this patient, discussed the same with the dictator. I agree with the dictator's note ,documented as a scribe. Any additional findings or plans will be noted.
[2021-03-03] MEDS: ACETAMINOPHEN TAB 325 MG TAB PO PRN (13:17)
[2021-03-03 16:07] LABS: African American GFR (CKD) >90 (>60 ml/min/1.73 sqM); Anion Gap 5 mmol/L; Blood Urea Nitrogen 21 mg/dL (9-20); Calcium 7.2 mg/dL (8.4-10.2); Carbon Dioxide 22 mmol/L (22-30); Chloride 105 mmol/L (98-107); Glucose 129 mg/dL (74-99); Non-African American GFR(CKD) >90 (>60 ml/min/1.73 sqM); Potassium 3.9 mmol/L (3.5-5.1); Sodium 132 mmol/L (137-145)
[2021-03-03 16:17] LABS: Basophils % (A) 0 %; Eosinophils % (A) 0 %; HGB 9.2 gm/dL (13.0-17.5); Hyperchromasia Slight; Lymphocytes # (A) 0.3 k/uL (1.0-4.8); Lymphocytes % (A) 5 %; MCH 30.5 pg (25.0-35.0); MCHC 35.5 g/dL (31.0-37.0); Monocytes # (A) 0.2 k/uL (0-1.0); Monocytes % (A) 3 %; Neutrophils # (A) 5.2 k/uL (1.3-7.7); Neutrophils % (A) 91 %; Platelet Count 177 k/uL (150-450); RBC 3.03 m/uL (4.30-5.90); RDW 13.5 % (11.5-15.5); WBC 5.7 k/uL (3.8-10.6)
[2021-03-03 17:06] LABS: Glucose,Whole Blood 130 mg/dL (75-99)
[2021-03-03] MEDS: ESCITALOPRAM 10 MG TAB PO SCH (22:21)
[2021-03-03] MEDS: DONEPEZIL 10 MG TAB PO SCH (22:21)
[2021-03-03] MEDS: QUEtiapine 25 MG TAB PO SCH (22:22)
[2021-03-03] MEDS: SENNOSIDES-DOCUSATE SODIUM 1 EACH TAB PO SCH (22:23)
[2021-03-03] MEDS: [UNRECOGNIZED DRUG - OTHER] PO SCH (22:24)
[2021-03-03 22:35] LABS: Glucose,Whole Blood 134 mg/dL (75-99)
[2021-03-03] MEDS: NON FORMULARY DRUG (Tadalafil [Tadalafil] 5 MG Tablet) PO SCH (22:42)
[2021-03-04] MEDS: SODIUM CHLORIDE 0.9% 1,000 ML IV SCH ×2 (06:54→12:55)
[2021-03-04] MEDS: LACTATED RINGERS 1,000 ML IV SCH (06:57)
[2021-03-04 08:10] LABS: Glucose,Whole Blood 109 mg/dL (75-99)
[2021-03-04] MEDS: ALBUTEROL HFA INHALER INHALATION SCH ×4 (09:20→21:43)
[2021-03-04 09:44] LABS: Basophils % (A) 0 %; Eosinophils % (A) 0 %; HCT 25.1 % (39.0-53.0); HGB 8.8 gm/dL (13.0-17.5); Lymphocytes # (A) 0.7 k/uL (1.0-4.8); Lymphocytes % (A) 9 %; MCH 30.3 pg (25.0-35.0); MCV 86.6 fL (80.0-100.0); Mean Platelet Volume 8.5; Monocytes # (A) 0.4 k/uL (0-1.0); Monocytes % (A) 5 %; Neutrophils # (A) 6.9 k/uL (1.3-7.7); Neutrophils % (A) 86 %; Platelet Count 186 k/uL (150-450); RDW 12.9 % (11.5-15.5)
[2021-03-04] MEDS: INSULIN ASPART (NovoLOG) 100 UNIT/ML VIAL SQ SCH ×4 (09:49→23:35)
[2021-03-04 10:06] LABS: African American GFR (CKD) >90 (>60 ml/min/1.73 sqM); Anion Gap 3 mmol/L; Blood Urea Nitrogen 21 mg/dL (9-20); Calcium 7.4 mg/dL (8.4-10.2); Carbon Dioxide 21 mmol/L (22-30); Chloride 109 mmol/L (98-107); Glucose 102 mg/dL (74-99); Non-African American GFR(CKD) >90 (>60 ml/min/1.73 sqM); Sodium 133 mmol/L (137-145)
[2021-03-04 10:17] LABS: Potassium 4.3 mmol/L (3.5-5.1)
[2021-03-04] MEDS: PANTOPRAZOLE 40 MG TABLET PO SCH (11:24)
[2021-03-04] MEDS: CARBIDOPA-LEVODOPA 25-100 MG 1 EACH TAB PO SCH ×4 (11:24→23:36)
[2021-03-04] MEDS: lamoTRIgine 25 MG TAB PO SCH (11:25)
[2021-03-04] MEDS: ACETAMINOPHEN TAB 325 MG TAB PO PRN (11:25)
[2021-03-04] MEDS: LORATADINE 10 MG TAB PO SCH (11:25)
[2021-03-04] MEDS: QUEtiapine 25 MG TAB PO SCH ×2 (11:25→23:36)
[2021-03-04] MEDS: MIDODRINE 5 MG TAB PO SCH ×2 (11:25→23:35)
[2021-03-04] MEDS: CHOLECALCIFEROL 25 MCG (1000 IU) TABLET PO SCH (11:25)
[2021-03-04] MEDS: ENOXAPARIN 40 MG/0.4 ML SYRINGE SQ SCH (11:26)
[2021-03-04] MEDS: ASCORBIC ACID 500 MG TAB PO SCH ×2 (11:26→18:33)
[2021-03-04] MEDS: DEXAMETHASONE SOD PHOSPHATE 10 MG/ML 1 ML VIAL IVP SCH (11:26)
[2021-03-04] MEDS: ZINC SULFATE 220 MG CAP PO SCH (11:26)
[2021-03-04] MEDS: POTASSIUM CHLORIDE ER 10 MEQ TAB.ER.PRT PO SCH (11:26)
[2021-03-04] MEDS: PIPERACILLIN-TAZOBACTAM 3.375 GM in SODIUM CHLORIDE 0.9% 100 ML IVPB SCH ×4 (11:27→16:31)
--- NOTE | 2021-03-04 11:40 | P.PN ---
Subjective Progress Note Date: 03/04/21 66-year-old male patient with consulting him because of COVID 19 infection. The patient has known history of Parkinson's disease. The patient also has history of major depression and hyperlipidemia as comorbid conditions and he suffers from chronic dysphagia. He also suffers from diverticular disease. The patient presented to the hospital because of weakness and unsteadiness and he has had frequent falls at home. He apparently sustained a fall and he was diagnosed having a left femur fracture and the patient is currently being evaluated by orthopedic surgery. Per history, the patient sustained a fall at home and immediately following that the patient had left hip pain. The patient does have history of frequent falls according to the . The surgical recommendation was hemiarthroplasty for an unstable fracture. The patient was taken to the operating room on 02/28/2021 and the patient underwent a hemiarthroplasty. The patient is postop day #1. Meanwhile, in terms of his COVID 19 infection, the patient is currently afebrile hemodynamically stable. He did have episodes of fever at a time of admission with T-max of 101.6.. He has become progressively more hypoxic during this [facility] stay. Initially was only on 2 L of Oxymizer nasal cannula oxygen requirements progressively got worse and is currently on 15 L by nasal cannula high flow. The chest x-ray revealed patchy bilateral pulmonary infiltrates consistent with COVID 19 related pneumonia. The patient was started on Decadron 6 mg IV on a daily basis. The patient is also on Lovenox 40 mg subcu for DVT prophylaxis. Outpatient medications been resumed. He is on Dilaudid for pain control. He also suffers from chronic hypotension and maintained on midodrine on outpatient basis. Inflammatory markers have not been checked for now. He is currently postop day #1. No nausea. No vomiting. No chest pain. No other complaints otherwise. The patient is seen today 03/02/2021 in follow-up on the observation unit. Postoperative day #2. He is currently sitting up at the bedside with physical therapy. Currently maintaining O2 saturations up to 100% on 10 L high flow nasal cannula. CT angiogram ruled out pulmonary embolism. There is a small bilateral effusions, compressive atelectasis, scattered mild areas of pneumonitis which are nonspecific and compatible with COVID-19 pneumonia. Blood cultures revealed no growth. He is maintained on Decadron, Lovenox, vitamin supplements. LDH 948. C-reactive protein 14.3. Pro-calcitonin 0.10. D-dimer 1.54. He has 0.9 normal saline at 130 ML's per hour. 03/03/2021, the patient is postop day #3. Condition essentially unchanged compared to yesterday. He is nonverbal. He is nonambulatory. He is essentially in bed. Oral intake is minimal and the patient is not eating at this point in time. I saw the breakfast sitting at the bedside. He has a weak cough. Unable to bring up any sputum. His breathing is nonlabored. The patient remains on 40% oxygen by nasal cannula. A chest x-ray still showing some limited basilar infiltrates that were seen earlier on the CAT scan of the chest. He remains on Decadron for COVID 19 related infection/pneumonia. His glucose today is at 107. No new labs are available from today. No issues with pain. He is alert. He opens up his eyes. He has resting tremors and he has extensive stiffness related to his Parkinson's disease. His Parkinson's quite advanced at this point in time. Meanwhile, the patient was found to the pro- calcitonin level of 0.1. He was started on IV Zosyn for any potential aspir ation pneumonia. 03/04 2021, the patient is postop day #4. She is having runs of fever with a tem perature of 101.2 on today's evaluation. Nevertheless, in general, his exercises remains stable patient remains on 5 L of oxygen by nasal cannula. He is eating with assistance. As mentioned earlier he has advanced Parkinson's disease. He has dementia. He has psychomotor slowing and rigidity in the muscles along with ongoing muscle tremors. The patient has been also infected with COVID 19. He remains on Decadron. No aspiration. He is requiring assistance for feeding. He remains on IV Zosyn for any potential aspiration pneumonia. He remains also on Decadron. The white cell count is at 8 with a hemoglobin of 8.8, sodium level is at 133, creatinine 0.6. Objective - Vital Signs Vital signs: Vital Signs Temp 101.2 F H 03/04/21 09:00 Pulse 84 03/04/21 09:00 Resp 18 03/04/21 09:00 BP 113/74 03/04/21 09:00 Pulse Ox 95 03/04/21 09:00 Intake & Output 03/03/21 03/04/21 03/04/21 18:59 06:59 18:59 Intake Total 910 2140 Balance 910 2140 Weight 68.039 kg Intake: IV 1820 Sodium Chloride 0.9% 1, 1820 000 ml @ 130 mls/hr IV . Q7H42M [facility] Rx#:[id number] Intake, IV Titration 910 200 Amount Piperacillin-Tazobactam 3 200 .375 gm In Sodium Chloride 0.9% 100 ml @ 25 mls/hr IVPB Q8HR [facility] Rx# :[id number] Sodium Chloride 0.9% 1, 910 000 ml @ 130 mls/hr IV . Q7H42M [facility] Rx#:[id number] Oral 120 Other: Voiding Method Indwelling Catheter Indwelling Catheter # Bowel Movements 0 - Exam Gen. appearance: a 66-year-old male patient being up at the bedside with physical therapy, on 4 L high flow nasal cannula with O2 saturation 100% . MHead exam was generally normal. There was no scleral icterus or corneal arcus. Mucous membranes were moist. Neck was supple and without jugular venous distension, thyromegaly, or carotid bruits. Carotids were easily palpable bilaterally. There was no adenopathy. Lungs sounds are diminished in the patient's crack in lung bases bilaterally. Cardiac exam revealed the PMI to be normally situated and sized. The rhythm was regular and no extrasystoles were noted during several minutes of auscultation. The first and second heart sounds were normal and physiologic splitting of the second heart sound was noted. There were no murmurs, rubs, clicks, or gallops. Abdominal exam revealed normal bowel sounds. The abdomen was soft, non-tender, and without masses, organomegaly, or appreciable enlargement of the abdominal aorta. Examination of the extremities revealed easily palpable radial, femoral and pedal pulses. There was no cyanosis, clubbing or edema. Surgical wound site over the hip area on the left is dry clean and intact. Dressing on place. The patient has adequate pulses in lower extremity is bilaterally. Neurologically the examination is consistent with Parkinson's disease. No focal neurological deficit. Examination of the skin revealed no evidence of significant rashes, suspicious appearing nevi or other concerning lesions. - Labs CBC & Chem 7: 03/04/21 09:09 03/04/21 09:09 Labs: Abnormal Lab Results - Last 24 Hours (Table) 03/03/21 03/03/21 03/03/21 Range/Units 12:12 15:24 15:24 RBC 3.03 L (4.30-5.90) m/uL Hgb 9.2 L (13.0-17.5) gm/dL Hct 26.0 L (39.0-53.0) % Lymphocytes # 0.3 L (1.0-4.8) k/uL Sodium 132 L (137-145) mmol/L Chloride (98-107) mmol/L Carbon Dioxide (22-30) mmol/L BUN 21 H (9-20) mg/dL Creatinine 0.62 L (0.66-1.25) mg/dL Glucose 129 H (74-99) mg/dL POC Glucose (mg/dL) 122 H (75-99) mg/dL Calcium 7.2 L (8.4-10.2) mg/dL 03/03/21 03/03/21 03/04/21 Range/Units 16:55 22:33 08:08 RBC (4.30-5.90) m/uL Hgb (13.0-17.5) gm/dL Hct (39.0-53.0) % Lymphocytes # (1.0-4.8) k/uL Sodium (137-145) mmol/L Chloride (98-107) mmol/L Carbon Dioxide (22-30) mmol/L BUN (9-20) mg/dL Creatinine (0.66-1.25) mg/dL Glucose (74-99) mg/dL POC Glucose (mg/dL) 130 H 134 H 109 H (75-99) mg/dL Calcium (8.4-10.2) mg/dL 03/04/21 03/04/21 Range/Units 09:09 09:09 RBC 2.90 L (4.30-5.90) m/uL Hgb 8.8 L (13.0-17.5) gm/dL Hct 25.1 L (39.0-53.0) % Lymphocytes # 0.7 L (1.0-4.8) k/uL Sodium 133 L (137-145) mmol/L Chloride 109 H (98-107) mmol/L Carbon Dioxide 21 L (22-30) mmol/L BUN 21 H (9-20) mg/dL Creatinine 0.64 L (0.66-1.25) mg/dL Glucose 102 H (74-99) mg/dL POC Glucose (mg/dL) (75-99) mg/dL Calcium 7.4 L (8.4-10.2) mg/dL Microbiology - Last 24 Hours (Table) 02/28/21 08:50 Blood Culture - Preliminary Blood No Growth after 96 hours 02/28/21 08:40 Blood Culture - Preliminary Blood No Growth after 96 hours Assessment and Plan Plan: 1 acute hypoxic respiratory failure. The patient presented with Covid 19 infection with generalized weakness and falls and subsequently the patient was taken to the operating room and the patient underwent a left hip hemiarthroplasty for a left femur fracture. The patient is currently on5 L by nasal cannula and he has developed but the pulmonary infiltrates. This is consistent with Covid 19 related pneumonia. It was negative for pulmonary embolism. Aspiration is felt to be possible although less likely and the patient is currently covered with a combination of Decadron for COVID 19 related pneumonia and Zosyn for aspiration. The pro-calcitonin level was mildly elevated at 0.1 the patient is currently afebrile. Nevertheless, there is no worsening his oxygenation. Suggest repeating a chest x-ray for tomorrow. Aspiration precautions. Continue Decadron. Continue IV Zosyn for now. 2 acute COVID 19 related pneumonia with secondary respiratory distress and hypoxic respiratory failure 3 left femur fracture and the patient has undergone left hip hemiarthroplasty and the patient is postop day # 52 4 Parkinson's disease 5 history of major depression 6 history of increased falls 7 chronic hypotension maintained on midodrine outpatient basis 8 diverticular disease 9. Tremors and muscle rigidity and the patient is essentially bedridden because of his advanced Parkinson's disease. 10 chronic dysphagia 11 history of dementia Plan Titrated oxygen flow to maintain a saturation above 90% , Currently weaned down to 5 by nasal cannula will benefit from a CT angiogram to rule out pulmonary embolism knowing that the patient has multiple risk factors to undergo PE. continue Decadron for nowGeneral with IV Zosyn Continue Lovenox for DVT prophylaxis Home medications that we resumed Monitor fever pattern Repeat chest x-ray in the morning Feeding with assistance Aspiration precautions nontender the patient has chronic dysphagia Pain control with DilaudidNot much can be offered from hours practice knowing that the patient has been excessively debilitated. As psychomotor slowing, generalized body stiffness, resting tremors, for swallow, very poor baseline performance and functional status. Such, his prognosis will be extremely poor. Strongly advise CODE STATUS change.
[2021-03-04 12:47] LABS: Glucose,Whole Blood 107 mg/dL (75-99)
[2021-03-04 17:45] LABS: Glucose,Whole Blood 134 mg/dL (75-99)
[2021-03-04 23:23] LABS: Glucose,Whole Blood 147 mg/dL (75-99)
[2021-03-04] MEDS: SENNOSIDES-DOCUSATE SODIUM 1 EACH TAB PO SCH (23:35)
[2021-03-04] MEDS: ESCITALOPRAM 10 MG TAB PO SCH (23:36)
[2021-03-04] MEDS: DONEPEZIL 10 MG TAB PO SCH (23:36)
[2021-03-04] MEDS: [UNRECOGNIZED DRUG - OTHER] PO SCH (23:37)
[2021-03-04] MEDS: NON FORMULARY DRUG (Tadalafil [Tadalafil] 5 MG Tablet) PO SCH (23:41)
[2021-03-05] MEDS: PIPERACILLIN-TAZOBACTAM 3.375 GM in SODIUM CHLORIDE 0.9% 100 ML IVPB SCH ×3 (02:49→17:17)
[2021-03-05] MEDS: SODIUM CHLORIDE 0.9% 1,000 ML IV SCH ×4 (02:49→22:11)
[2021-03-05] MEDS: ALBUTEROL HFA INHALER INHALATION SCH ×4 (08:27→19:25)
[2021-03-05 09:20] LABS: Glucose,Whole Blood 107 mg/dL (75-99)
[2021-03-05] MEDS: LACTATED RINGERS 1,000 ML IV SCH (09:23)
[2021-03-05] MEDS: INSULIN ASPART (NovoLOG) 100 UNIT/ML VIAL SQ SCH ×4 (09:23→21:14)
[2021-03-05] MEDS: ASCORBIC ACID 500 MG TAB PO SCH ×2 (09:23→17:18)
[2021-03-05] MEDS: CHOLECALCIFEROL 25 MCG (1000 IU) TABLET PO SCH (09:25)
[2021-03-05] MEDS: LORATADINE 10 MG TAB PO SCH (09:27)
[2021-03-05] MEDS: ZINC SULFATE 220 MG CAP PO SCH (09:28)
[2021-03-05] MEDS: CARBIDOPA-LEVODOPA 25-100 MG 1 EACH TAB PO SCH ×4 (09:29→22:10)
[2021-03-05] MEDS: ENOXAPARIN 40 MG/0.4 ML SYRINGE SQ SCH (09:29)
[2021-03-05] MEDS: DEXAMETHASONE SOD PHOSPHATE 10 MG/ML 1 ML VIAL IVP SCH (09:30)
[2021-03-05] MEDS: PANTOPRAZOLE 40 MG TABLET PO SCH (09:30)
[2021-03-05] MEDS: MIDODRINE 5 MG TAB PO SCH ×2 (09:31→22:11)
[2021-03-05] MEDS: POTASSIUM CHLORIDE ER 10 MEQ TAB.ER.PRT PO SCH (09:31)
[2021-03-05] MEDS: lamoTRIgine 25 MG TAB PO SCH (09:31)
[2021-03-05] MEDS: QUEtiapine 25 MG TAB PO SCH ×2 (09:31→22:10)
[2021-03-05 12:00] LABS: Glucose,Whole Blood 125 mg/dL (75-99)
[2021-03-05 12:29] LABS: Sodium 135 mmol/L (137-145)
[2021-03-05 12:33] LABS: ALT 13 U/L (4-49); African American GFR (CKD) >90 (>60 ml/min/1.73 sqM); Albumin 2.4 g/dL (3.5-5.0); Anion Gap 6 mmol/L; Blood Urea Nitrogen 23 mg/dL (9-20); Calcium 7.4 mg/dL (8.4-10.2); Carbon Dioxide 24 mmol/L (22-30); Chloride 105 mmol/L (98-107); Glucose 111 mg/dL (74-99); LDH 1665 U/L (313-618); Non-African American GFR(CKD) >90 (>60 ml/min/1.73 sqM); Total Bilirubin 0.7 mg/dL (0.2-1.3); Total Protein 4.8 g/dL (6.3-8.2)
--- NOTE | 2021-03-05 12:42 | P.OP ---
Date of Procedure: 02/28/21 Preoperative Diagnosis: Left femoral neck fracture Postoperative Diagnosis: same Procedure(s) Performed: left hip hemiarthroplasty, cemented Implants: Milton Accolade C 132deg cemented stem, -4mm offset 28mm head, 49mm bipolar co mponent Anesthesia: spinal Surgeon: Eugenie Rodriguez [employer] Supervisor #1: Mateusz Gomez [employer] Supervisor #2: Kya Cook Estimated Blood Loss (ml): 300 Condition: stable Disposition: floor Indications for Procedure: 66 male with history of Parkinson's who sustained a femoral neck fracture in a ground level fall. Description of Procedure: Patient was brought back to the operating room directly from the floor because he was COVID positive. Patient's identity, operative extremity, consent, and procedure were confirmed. Spinal block was provided by the anesthesia team and patient was moved to the Jojo table. THe left lower extremity was prepped and draped in normal sterile fashion. Oblique incision was made over the TFl and dissection carried down to fascia with care taken to protect the cutaneous nerve. Fascia was incisioed and the interval between TFL and rectus was developed. circumflex vessels were carefully cauterized and released with Aquamanis and bovie. Dissection was then taken down to the level of the capsule and periarticular fat and muscles were lifted. At this point, the anterior capsule was excised, exposing the femoral neck fracture. The femoral head was then removed and a new femoral neck cut 15mm above the lesser trochanter was performed. The femoral elevator was inserted and careful release of the remaining capsule and piriformis tendon was performed. The femoral neck was then elevated by lowering the leg and lifting the femoral elevator. The neck was then prepared with a broach to a size 5. Trial head and neck were placed and tension and positioning of the construct was checked on fluoroscopy. Full internal and external rotation of the leg did not demonstrate any subluxation. The femoral neck was again exposed and prepared fo r cement. The cement restrictor was then inserted followed by the cement which was pressurized prior to the insertion of the stem. After the cement cured, components were again trialed with the aid of fluoroscopy. Final implants were Size 5 132 deg cemented stem with a -4mm offset with a 49mm bipolar head. Range of motion demonstrated good stability. Fascia was closed with 0 strata-fix. and a layered closure was performed with 2.0 stratafix and 3.0 monocryl. Wound was dressed with a prevena vac. Patient tolerated the procedure well and was brought back to the room directly following recovery in the OR given his COVID positive status.
[2021-03-05 12:43] LABS: Potassium 4.6 mmol/L (3.5-5.1)
[2021-03-05 12:44] LABS: AST 105 U/L (17-59); Alkaline Phosphatase 45 U/L (38-126)
[2021-03-05 12:53] LABS: C Reactive Protein 15.6 mg/dL (<1.0)
[2021-03-05 13:13] LABS: Basophils % (A) 0 %; Eosinophils % (A) 0 %; HCT 22.4 % (39.0-53.0); HGB 7.8 gm/dL (13.0-17.5); Lymphocytes # (A) 0.3 k/uL (1.0-4.8); Lymphocytes % (A) 5 %; MCH 30.6 pg (25.0-35.0); MCHC 34.7 g/dL (31.0-37.0); MCV 88.2 fL (80.0-100.0); Mean Platelet Volume 8.3; Monocytes # (A) 0.3 k/uL (0-1.0); Monocytes % (A) 5 %; Neutrophils # (A) 6.3 k/uL (1.3-7.7); Neutrophils % (A) 90 %; Platelet Count 229 k/uL (150-450); RBC 2.54 m/uL (4.30-5.90); RDW 12.9 % (11.5-15.5)
--- NOTE | 2021-03-05 14:30 | P.PN ---
Subjective Progress Note Date: 03/05/21 66-year-old male patient with consulting him because of COVID 19 infection. The patient has known history of Parkinson's disease. The patient also has history of major depression and hyperlipidemia as comorbid conditions and he suffers from chronic dysphagia. He also suffers from diverticular disease. The patient presented to the hospital because of weakness and unsteadiness and he has had frequent falls at home. He apparently sustained a fall and he was diagnosed having a left femur fracture and the patient is currently being evaluated by orthopedic surgery. Per history, the patient sustained a fall at home and immediately following that the patient had left hip pain. The patient does have history of frequent falls according to the . The surgical recommendation was hemiarthroplasty for an unstable fracture. The patient was taken to the operating room on 02/28/2021 and the patient underwent a hemiarthroplasty. The patient is postop day #1. Meanwhile, in terms of his COVID 19 infection, the patient is currently afebrile hemodynamically stable. He did have episodes of fever at a time of admission with T-max of 101.6.. He has become progressively more hypoxic during this [facility] hospital stay. Initially was only on 2 L of Oxymizer nasal cannula oxygen requirements progressively got worse and is currently on 15 L by nasal cannula high flow. The chest x-ray revealed patchy bilateral pulmonary infiltrates consistent with COVID 19 related pneumonia. The patient was started on Decadron 6 mg IV on a daily basis. The patient is also on Lovenox 40 mg subcu for DVT prophylaxis. Outpatient medications been resumed. He is on Dilaudid for pain control. He also suffers from chronic hypotension and maintained on midodrine on outpatient basis. Inflammatory markers have not been checked for now. He is currently postop day #1. No nausea. No vomiting. No chest pain. No other complaints otherwise. The patient is seen today 03/02/2021 in follow-up on the observation unit. Postoperative day #2. He is currently sitting up at the bedside with physical therapy. Currently maintaining O2 saturations up to 100% on 10 L high flow nasal cannula. CT angiogram ruled out pulmonary embolism. There is a small bilateral effusions, compressive atelectasis, scattered mild areas of pneumonitis which are nonspecific and compatible with COVID-19 pneumonia. Blood cultures revealed no growth. He is maintained on Decadron, Lovenox, vitamin supplements. LDH 948. C-reactive protein 14.3. Pro-calcitonin 0.10. D-dimer 1.54. He has 0.9 normal saline at 130 ML's per hour. 03/03/2021, the patient is postop day #3. Condition essentially unchanged compared to yesterday. He is nonverbal. He is nonambulatory. He is essentially in bed. Oral intake is minimal and the patient is not eating at this point in time. I saw the breakfast sitting at the bedside. He has a weak cough. Unable to bring up any sputum. His breathing is nonlabored. The patient remains on 40% oxygen by nasal cannula. A chest x-ray still showing some limited basilar infiltrates that were seen earlier on the CAT scan of the chest. He remains on Decadron for COVID 19 related infection/pneumonia. His glucose today is at 107. No new labs are available from today. No issues with pain. He is alert. He opens up his eyes. He has resting tremors and he has extensive stiffness related to his Parkinson's disease. His Parkinson's quite advanced at this point in time. Meanwhile, the patient was found to the pro- calcitonin level of 0.1. He was started on IV Zosyn for any potential aspir ation pneumonia. 03/04 2021, the patient is postop day #4. She is having runs of fever with a tem perature of 101.2 on today's evaluation. Nevertheless, in general, his exercises remains stable patient remains on 5 L of oxygen by nasal cannula. He is eating with assistance. As mentioned earlier he has advanced Parkinson's disease. He has dementia. He has psychomotor slowing and rigidity in the muscles along with ongoing muscle tremors. The patient has been also infected with COVID 19. He remains on Decadron. No aspiration. He is requiring assistance for feeding. He remains on IV Zosyn for any potential aspiration pneumonia. He remains also on Decadron. The white cell count is at 8 with a hemoglobin of 8.8, sodium level is at 133, creatinine 0.6. 03/05/2021, the patient is postop day #5. This morning the patient was placed on oxygen at 10 L per minute nasal cannula with a pulse ox of 92%. Resting comfortably in bed. Doesn't communicate. Needs assistance with activities of daily life including feeding. Cough remains weak. This morning, the patient is afebrile. Surgical wound site over the left hip area dry clean and intact. Wet hemoglobin of 7.8 and a platelet count of 229, d-dimer was 0.9 and the patient remains on Decadron 6 mg IV every 24 hours. Dilaudid for pain control. He has also covered empirically with IV Zosyn as an antibiotic coverage for aspiration. Objective - Vital Signs Vital signs: Vital Signs Temp 98.8 F 03/05/21 07:00 Pulse 70 03/05/21 07:00 Resp 19 03/05/21 09:05 BP 106/75 03/05/21 09:00 Pulse Ox 90 L 03/05/21 09:05 Intake & Output 03/04/21 03/05/21 03/05/21 18:59 06:59 18:59 Intake Total 1860 Output Total 850 2800 1200 Balance -850 -940 -1200 Intake: IV 1560 Sodium Chloride 0.9% 1, 1560 000 ml @ 130 mls/hr IV . Q7H42M [facility] Rx#:[id number] Oral 300 Output: Urine 850 2800 1200 Other: Voiding Method Indwelling Catheter Indwelling Catheter # Voids 1 - Exam Gen. appearance: a 66-year-old male patient being up at the bedside with physical therapy, on 10 L high flow nasal cannula with O2 saturation 100% . MHead exam was generally normal. There was no scleral icterus or corneal arcus. Mucous membranes were moist. Neck was supple and without jugular venous distension, thyromegaly, or carotid bruits. Carotids were easily palpable bilaterally. There was no adenopathy. Lungs sounds are diminished in the patient's crack in lung bases bilaterally. Cardiac exam revealed the PMI to be normally situated and sized. The rhythm was regular and no extrasystoles were noted during several minutes of auscultation. The first and second heart sounds were normal and physiologic splitting of the second heart sound was noted. There were no murmurs, rubs, clicks, or gallops. Abdominal exam revealed normal bowel sounds. The abdomen was soft, non-tender, and without masses, organomegaly, or appreciable enlargement of the abdominal ao rta. Examination of the extremities revealed easily palpable radial, femoral and pedal pulses. There was no cyanosis, clubbing or edema. Surgical wound site over the hip area on the left is dry clean and intact. Dressing on place. The patient has adequate pulses in lower extremity is bilaterally. Neurologically the examination is consistent with Parkinson's disease. No focal neurological deficit. Examination of the skin revealed no evidence of significant rashes, suspicious appearing nevi or other concerning lesions. - Labs CBC & Chem 7: 03/05/21 12:37 03/05/21 11:31 Labs: Abnormal Lab Results - Last 24 Hours (Table) 03/04/21 03/04/21 03/05/21 Range/Units 17:43 23:21 09:17 RBC (4.30-5.90) m/uL Hgb (13.0-17.5) gm/dL Hct (39.0-53.0) % Lymphocytes # (1.0-4.8) k/uL D-Dimer (<0.60) mg/L FEU Sodium (137-145) mmol/L BUN (9-20) mg/dL Creatinine (0.66-1.25) mg/dL Glucose (74-99) mg/dL POC Glucose (mg/dL) 134 H 147 H 107 H (75-99) mg/dL Calcium (8.4-10.2) mg/dL AST (17-59) U/L Lactate Dehydrogenase (313-618) U/L C-Reactive Protein (<1.0) mg/dL Total Protein (6.3-8.2) g/dL Albumin (3.5-5.0) g/dL 03/05/21 03/05/21 03/05/21 Range/Units 11:31 11:31 11:58 RBC (4.30-5.90) m/uL Hgb (13.0-17.5) gm/dL Hct (39.0-53.0) % Lymphocytes # (1.0-4.8) k/uL D-Dimer 0.91 H (<0.60) mg/L FEU Sodium 135 L (137-145) mmol/L BUN 23 H (9-20) mg/dL Creatinine 0.57 L (0.66-1.25) mg/dL Glucose 111 H (74-99) mg/dL POC Glucose (mg/dL) 125 H (75-99) mg/dL Calcium 7.4 L (8.4-10.2) mg/dL AST 105 H (17-59) U/L Lactate Dehydrogenase 1665 H (313-618) U/L C-Reactive Protein 15.6 H (<1.0) mg/dL Total Protein 4.8 L (6.3-8.2) g/dL Albumin 2.4 L (3.5-5.0) g/dL 03/05/21 Range/Units 12:37 RBC 2.54 L (4.30-5.90) m/uL Hgb 7.8 L (13.0-17.5) gm/dL Hct 22.4 L (39.0-53.0) % Lymphocytes # 0.3 L (1.0-4.8) k/uL D-Dimer (<0.60) mg/L FEU Sodium (137-145) mmol/L BUN (9-20) mg/dL Creatinine (0.66-1.25) mg/dL Glucose (74-99) mg/dL POC Glucose (mg/dL) (75-99) mg/dL Calcium (8.4-10.2) mg/dL AST (17-59) U/L Lactate Dehydrogenase (313-618) U/L C-Reactive Protein (<1.0) mg/dL Total Protein (6.3-8.2) g/dL Albumin (3.5-5.0) g/dL Microbiology - Last 24 Hours (Table) 03/03/21 10:33 Blood Culture - Preliminary Blood No Growth after 48 hours 03/03/21 10:39 Blood Culture - Preliminary Blood No Growth after 48 hours 02/28/21 08:40 Blood Culture - Preliminary Blood No Growth after 120 hours 02/28/21 08:50 Blood Culture - Preliminary Blood No Growth after 120 hours Assessment and Plan Plan: 1 acute hypoxic respiratory failure. The patient presented with Covid 19 infection with generalized weakness and falls and subsequently the patient was taken to the operating room and the patient underwent a left hip hemiarthroplasty for a left femur fracture. The patient is currently on5 L by nasal cannula and he has developed but the pulmonary infiltrates. This is consistent with Covid 19 related pneumonia. It was negative for pulmonary embolism. Aspiration is felt to be possible although less likely and the patient is currently covered with a combination of Decadron for COVID 19 related pneumonia and Zosyn for aspiration. The pro-calcitonin level was mildly elevated at 0.1 the patient is currently afebrile. Nevertheless, there is no worsening his oxygenation. S Aspiration precautions. Continue Decadron. Cont inue IV Zosyn for now. Clinically, stable. His oxygenation is slightly worse compared to yesterday and the patient is currently on 10 L about 2 by nasal cannula. 2 acute COVID 19 related pneumonia with secondary respiratory distress and hypoxic respiratory failure, currently inactive in stable 3 left femur fracture and the patient has undergone left hip hemiarthroplasty and the patient is postop day # 5 4 Parkinson's disease 5 history of major depression 6 history of increased falls 7 chronic hypotension maintained on midodrine outpatient basis 8 diverticular disease 9. Tremors and muscle rigidity and the patient is essentially bedridden because of his advanced Parkinson's disease. 10 chronic dysphagia 11 history of dementia Plan Titrated oxygen flow to maintain a saturation above 90% , Currently on 10 L by nasal cannula will benefit from a CT angiogram to rule out pulmonary embolism knowing that the patient has multiple risk factors to undergo PE. continue Decadron for now Cover the patient empirically with IV Zosyn , covering this patient for aspiration pneumonias Continue Lovenox for DVT prophylaxis Home medications that we resumed Monitor fever pattern Repeat chest x-ray in the morning Feeding with assistance Aspiration precautions nontender the patient has chronic dysphagia Pain control with Dilaudid Prognosis remains extremely utilize advanced Parkinson's disease. We'll continue to follow.
[2021-03-05 16:59] LABS: Glucose,Whole Blood 116 mg/dL (75-99)
[2021-03-05 20:22] LABS: Glucose,Whole Blood 122 mg/dL (75-99)
[2021-03-05] MEDS: NON FORMULARY DRUG (Tadalafil [Tadalafil] 5 MG Tablet) PO SCH (21:15)
[2021-03-05] MEDS: [UNRECOGNIZED DRUG - OTHER] PO SCH ×2 (21:15→22:19)
--- NOTE | 2021-03-05 21:57 | P.PN ---
Subjective Progress Note Date: 03/04/21 Principal diagnosis: 1. L femur fracture, status post direct anterior left hip arthroplasty 2. COVID pneumonia. Elie Mendoza is a 66 yo M with PMH of parkinson disease, HLD, GERD, major depression who presented to the ED after a fall at home. He states that he had been unsteady at home and has had frequent falls. He sustained L sided hip pain after the fall. On initial presentation vitals were stable, labs on review overall unremarkable. He was COVID positive. Hip XR showing acute subcapital fracture of the L femur. Pt currently endorses hip pain, denies chest pain, fever, chills, shortness of breath, cough. 03/01/2021 status post direct anterior left hip arthroplasty, postop day #1. Tolerated procedure well. Pain currently controlled, recently medicated with [place].Maintained on Covid regimen. Oxygen requirements worsened, increased to 15 L high flow nasal cannula. T-max 99.3., Blood cultures pending. Denies chest pain, palpitations. 03/02/2021 maintaining O2 sats in the 90s on 8 L nasal cannula O2. PE ruled out per CTA report. Compressive atelectasis, small bilateral effusions with scattered nonspecific areas of pneumonitis, nonspecific, compatible with COVID- 19 pneumonia. T-max 100.2. Pain controlled. Elevated d-dimer, pro-calcitonin, CRP and LDH. PT reporting patient currently does not have sitting balance. 03/03/2021 oxygen requirements decreased to 4 L. T-max 101.6. Maintained on Covid cocktail. Pain currently controlled. Fever workup initiated including empiric Zosyn for potential aspiration pneumonia. 03/04/2021 Patient is currently lying in the bed confused. Awake alert. Patient does have muscle rigidity and tremors due to Parkinson's disease. Patient did have a temperature with T-max of 101.2 F. Otherwise patient is a still requiring bilateral oxygen via nasal cannula. Patient is maintained on dexamethasone and Lovenox subcu. Patient is also on Zosyn for possible aspiration pneumonia. Laboratory showed WBC 8.0 hemoglobin 8.8 and platelets 186 BUN 21 and creatinine 0.64. Sodium 133 and calcium 7.4. Current medications reviewed. Objective - Vital Signs Vital signs: Vital Signs Temp 99.3 F 03/04/21 12:58 Pulse 82 03/04/21 12:58 Resp 17 03/04/21 12:58 BP 113/74 03/04/21 09:00 Pulse Ox 94 L 03/04/21 12:58 Intake & Output 03/03/21 03/04/21 03/04/21 18:59 06:59 18:59 Intake Total 910 2140 Balance 910 2140 Weight 68.039 kg Intake: IV 1820 Sodium Chloride 0.9% 1, 1820 000 ml @ 130 mls/hr IV . Q7H42M [facility] Rx#:[id number] Intake, IV Titration 910 200 Amount Piperacillin-Tazobactam 3 200 .375 gm In Sodium Chloride 0.9% 100 ml @ 25 mls/hr IVPB Q8HR [facility] Rx# :[id number] Sodium Chloride 0.9% 1, 910 000 ml @ 130 mls/hr IV . Q7H42M [facility] Rx#:[id number] Oral 120 Other: Voiding Method Indwelling Catheter Indwelling Catheter # Bowel Movements 0 - Exam - Exam General: Alert and oriented 3, generalized body stiffness,,respiratory effort increased. HEENT: normocephalic, atraumatic, oral mucosa moist Neck: supple, no JVD, CV: RRR, no murmur Lungs: normal effort, bilateral bases diminished Abd: soft, nontender, non distended, positive bowel sounds Neuro: No focal deficit. Parkinson tremors. Skin: warm and dry. Left hip dressing clean dry and intact. - Labs CBC & Chem 7: 03/05/21 12:37 03/05/21 11:31 Labs: Abnormal Lab Results - Last 24 Hours (Table) 03/03/21 03/03/21 03/03/21 Range/Units 15:24 15:24 16:55 RBC 3.03 L (4.30-5.90) m/uL Hgb 9.2 L (13.0-17.5) gm/dL Hct 26.0 L (39.0-53.0) % Lymphocytes # 0.3 L (1.0-4.8) k/uL Sodium 132 L (137-145) mmol/L Chloride (98-107) mmol/L Carbon Dioxide (22-30) mmol/L BUN 21 H (9-20) mg/dL Creatinine 0.62 L (0.66-1.25) mg/dL Glucose 129 H (74-99) mg/dL POC Glucose (mg/dL) 130 H (75-99) mg/dL Calcium 7.2 L (8.4-10.2) mg/dL 03/03/21 03/04/21 03/04/21 Range/Units 22:33 08:08 09:09 RBC 2.90 L (4.30-5.90) m/uL Hgb 8.8 L (13.0-17.5) gm/dL Hct 25.1 L (39.0-53.0) % Lymphocytes # 0.7 L (1.0-4.8) k/uL Sodium (137-145) mmol/L Chloride (98-107) mmol/L Carbon Dioxide (22-30) mmol/L BUN (9-20) mg/dL Creatinine (0.66-1.25) mg/dL Glucose (74-99) mg/dL POC Glucose (mg/dL) 134 H 109 H (75-99) mg/dL Calcium (8.4-10.2) mg/dL 03/04/21 03/04/21 Range/Units 09:09 12:45 RBC (4.30-5.90) m/uL Hgb (13.0-17.5) gm/dL Hct (39.0-53.0) % Lymphocytes # (1.0-4.8) k/uL Sodium 133 L (137-145) mmol/L Chloride 109 H (98-107) mmol/L Carbon Dioxide 21 L (22-30) mmol/L BUN 21 H (9-20) mg/dL Creatinine 0.64 L (0.66-1.25) mg/dL Glucose 102 H (74-99) mg/dL POC Glucose (mg/dL) 107 H (75-99) mg/dL Calcium 7.4 L (8.4-10.2) mg/dL Microbiology - Last 24 Hours (Table) 03/03/21 10:39 Blood Culture - Preliminary Blood No Growth after 24 hours 03/03/21 10:33 Blood Culture - Preliminary Blood No Growth after 24 hours 02/28/21 08:50 Blood Culture - Preliminary Blood No Growth after 96 hours 02/28/21 08:40 Blood Culture - Preliminary Blood No Growth after 96 hours Assessment and Plan Assessment: 1. L femur fracture, status post direct anterior left hip arthroplasty 2. COVID pneumonia. Elevated pro-calcitonin. Possible underlying aspiration pneumonia in a patient with Parkinson's 3. Acute Hypoxic respiratory failure secondary to the above, compressive atelectasis 4. Parkinson disease. 5. GERD. 6. Major depression. Plan: Continue on current medication regime, monitoring, symptomatic treatment. Blood cultures repeated. Aspiration precautions .Speech therapy consulted for swallow evaluation in this gentleman with Parkinsons. Empiric Zosyn added to med regimen, PT/OT. Maintain Covid cocktail. Aggressive pulmonary toileting with incentive spirometer reinforced. Pain management. Follow closely with pulmonary. Time with Patient: Greater than 30
--- NOTE | 2021-03-05 21:59 | P.PN ---
Subjective Progress Note Date: 03/05/21 Principal diagnosis: 1. L femur fracture, status post direct anterior left hip arthroplasty 2. COVID pneumonia. Elie Mendoza is a 66 yo M with PMH of parkinson disease, HLD, GERD, major depression who presented to the ED after a fall at home. He states that he had been unsteady at home and has had frequent falls. He sustained L sided hip pain after the fall. On initial presentation vitals were stable, labs on review overall unremarkable. He was COVID positive. Hip XR showing acute subcapital fracture of the L femur. Pt currently endorses hip pain, denies chest pain, fever, chills, shortness of breath, cough. 03/01/2021 status post direct anterior left hip arthroplasty, postop day #1. Tolerated procedure well. Pain currently controlled, recently medicated with [place].Maintained on Covid regimen. Oxygen requirements worsened, increased to 15 L high flow nasal cannula. T-max 99.3., Blood cultures pending. Denies chest pain, palpitations. 03/02/2021 maintaining O2 sats in the 90s on 8 L nasal cannula O2. PE ruled out per CTA report. Compressive atelectasis, small bilateral effusions with scattered nonspecific areas of pneumonitis, nonspecific, compatible with COVID- 19 pneumonia. T-max 100.2. Pain controlled. Elevated d-dimer, pro-calcitonin, CRP and LDH. PT reporting patient currently does not have sitting balance. 03/03/2021 oxygen requirements decreased to 4 L. T-max 101.6. Maintained on Covid cocktail. Pain currently controlled. Fever workup initiated including empiric Zosyn for potential aspiration pneumonia. 03/04/2021 Patient is currently lying in the bed confused. Awake alert. Patient does have muscle rigidity and tremors due to Parkinson's disease. Patient did have a temperature with T-max of 101.2 F. Otherwise patient is a still requiring bilateral oxygen via nasal cannula. Patient is maintained on dexamethasone and Lovenox subcu. Patient is also on Zosyn for possible aspiration pneumonia. Laboratory showed WBC 8.0 hemoglobin 8.8 and platelets 186 BUN 21 and creatinine 0.64. Sodium 133 and calcium 7.4. 03/05/2021 Patient is currently lying in the bed. Appears to be comfortable. But does not communicate. Able to tolerate oral diet with assistance. Oxygen requirement increased to 10 L via nasal cannula today. T-max 99.9.. No episodes of vomiting. No diarrhea. Patient is being current IV dexamethasone and Lovenox subcu and also multivitamins. Patient is also on Zosyn for possible aspiration. Laboratory data showed WBC 7.0 hemoglobin 7.8 and platelets 229 D-dimer is 0.91 BUN 23 and creatinine 0.57 LDH 1665 CRP 15.6 Pulmonary is on board. Current medications reviewed. Objective - Vital Signs Vital signs: Vital Signs Temp 98.3 F 03/05/21 18:58 Pulse 114 H 03/05/21 18:58 Resp 20 03/05/21 18:58 BP 108/62 03/05/21 18:58 Pulse Ox 88 L 03/05/21 18:58 Intake & Output 03/05/21 03/05/21 03/06/21 06:59 18:59 06:59 Intake Total 1860 Output Total 2800 1800 Balance -940 -1800 Intake: IV 1560 Sodium Chloride 0.9% 1, 1560 000 ml @ 130 mls/hr IV . Q7H42M [facility] Rx#:[id number] Oral 300 Output: Urine 2800 1800 Other: Voiding Method Indwelling Catheter Indwelling Catheter # Voids 1 - Exam - Exam General: Alert and oriented 3, generalized body stiffness,,respiratory effort increased. HEENT: normocephalic, atraumatic, oral mucosa moist Neck: supple, no JVD, CV: RRR, no murmur Lungs: normal effort, bilateral bases diminished Abd: soft, nontender, non distended, positive bowel sounds Neuro: No focal deficit. Parkinson tremors. Skin: warm and dry. Left hip dressing clean dry and intact. - Labs CBC & Chem 7: 03/05/21 12:37 03/05/21 11:31 Labs: Abnormal Lab Results - Last 24 Hours (Table) 03/04/21 03/05/21 03/05/21 Range/Units 23:21 09:17 11:31 RBC (4.30-5.90) m/uL Hgb (13.0-17.5) gm/dL Hct (39.0-53.0) % Lymphocytes # (1.0-4.8) k/uL D-Dimer (<0.60) mg/L FEU Sodium 135 L (137-145) mmol/L BUN 23 H (9-20) mg/dL Creatinine 0.57 L (0.66-1.25) mg/dL Glucose 111 H (74-99) mg/dL POC Glucose (mg/dL) 147 H 107 H (75-99) mg/dL Calcium 7.4 L (8.4-10.2) mg/dL AST 105 H (17-59) U/L Lactate Dehydrogenase 1665 H (313-618) U/L C-Reactive Protein 15.6 H (<1.0) mg/dL Total Protein 4.8 L (6.3-8.2) g/dL Albumin 2.4 L (3.5-5.0) g/dL 03/05/21 03/05/21 03/05/21 Range/Units 11:31 11:58 12:37 RBC 2.54 L (4.30-5.90) m/uL Hgb 7.8 L (13.0-17.5) gm/dL Hct 22.4 L (39.0-53.0) % Lymphocytes # 0.3 L (1.0-4.8) k/uL D-Dimer 0.91 H (<0.60) mg/L FEU Sodium (137-145) mmol/L BUN (9-20) mg/dL Creatinine (0.66-1.25) mg/dL Glucose (74-99) mg/dL POC Glucose (mg/dL) 125 H (75-99) mg/dL Calcium (8.4-10.2) mg/dL AST (17-59) U/L Lactate Dehydrogenase (313-618) U/L C-Reactive Protein (<1.0) mg/dL Total Protein (6.3-8.2) g/dL Albumin (3.5-5.0) g/dL 03/05/21 03/05/21 Range/Units 16:54 20:20 RBC (4.30-5.90) m/uL Hgb (13.0-17.5) gm/dL Hct (39.0-53.0) % Lymphocytes # (1.0-4.8) k/uL D-Dimer (<0.60) mg/L FEU Sodium (137-145) mmol/L BUN (9-20) mg/dL Creatinine (0.66-1.25) mg/dL Glucose (74-99) mg/dL POC Glucose (mg/dL) 116 H 122 H (75-99) mg/dL Calcium (8.4-10.2) mg/dL AST (17-59) U/L Lactate Dehydrogenase (313-618) U/L C-Reactive Protein (<1.0) mg/dL Total Protein (6.3-8.2) g/dL Albumin (3.5-5.0) g/dL Microbiology - Last 24 Hours (Table) 03/03/21 10:33 Blood Culture - Preliminary Blood No Growth after 48 hours 03/03/21 10:39 Blood Culture - Preliminary Blood No Growth after 48 hours 02/28/21 08:40 Blood Culture - Preliminary Blood No Growth after 120 hours 02/28/21 08:50 Blood Culture - Preliminary Blood No Growth after 120 hours Assessment and Plan Assessment: 1. L femur fracture, status post direct anterior left hip arthroplasty 2. COVID pneumonia. Elevated pro-calcitonin. Possible underlying aspiration pneumonia in a patient with Parkinson's 3. Acute Hypoxic respiratory failure secondary to the above, compressive atelectasis 4. Parkinson disease. 5. GERD. 6. Major depression. Plan: Continue on current medication regime, monitoring, symptomatic treatment. Blood cultures repeated. Aspiration precautions .Speech therapy consulted for swallow evaluation in this gentleman with Parkinsons. Empiric Zosyn added to med regimen, PT/OT. Maintain Covid cocktail. Aggressive pulmonary toileting with incentive spirometer reinforced. Pain management. Follow closely with pulmonary.
[2021-03-05] MEDS: DONEPEZIL 10 MG TAB PO SCH (22:10)
[2021-03-05] MEDS: SENNOSIDES-DOCUSATE SODIUM 1 EACH TAB PO SCH (22:10)
[2021-03-05] MEDS: ESCITALOPRAM 10 MG TAB PO SCH (22:11)
[2021-03-06] MEDS: PIPERACILLIN-TAZOBACTAM 3.375 GM in SODIUM CHLORIDE 0.9% 100 ML IVPB SCH ×3 (00:12→17:32)
[2021-03-06] MEDS: LACTATED RINGERS 1,000 ML IV SCH (06:12)
[2021-03-06] MEDS: SODIUM CHLORIDE 0.9% 1,000 ML IV SCH ×3 (06:12→22:23)
[2021-03-06 07:10] LABS: Glucose,Whole Blood 98 mg/dL (75-99)
[2021-03-06] MEDS: INSULIN ASPART (NovoLOG) 100 UNIT/ML VIAL SQ SCH ×4 (07:35→22:20)
[2021-03-06] MEDS: ASCORBIC ACID 500 MG TAB PO SCH ×2 (07:43→17:35)
[2021-03-06] MEDS: PANTOPRAZOLE 40 MG TABLET PO SCH (07:43)
--- NOTE | 2021-03-06 08:22 | XR ---
EXAMINATION TYPE: XR chest 1V portable DATE OF EXAM: 03/06/2021 COMPARISON: Chest x-ray 03/03/2021 HISTORY: Covid pneumonia TECHNIQUE: Single frontal view of the chest is obtained. FINDINGS: There is no focal air space opacity, sizable pleural effusion, or pneumothorax seen. The cardiac silhouette size is within normal limits. The osseous structures are intact. Exam is expirat ory and rotated. IMPRESSION: Correlate for pneumonia
[2021-03-06 08:34] LABS: Basophils % (A) 0 %; Eosinophils % (A) 0 %; HCT 24.6 % (39.0-53.0); HGB 8.6 gm/dL (13.0-17.5); Lymphocytes # (A) 0.7 k/uL (1.0-4.8); Lymphocytes % (A) 8 %; MCH 29.9 pg (25.0-35.0); MCHC 34.8 g/dL (31.0-37.0); MCV 85.9 fL (80.0-100.0); Mean Platelet Volume 8.2; Monocytes # (A) 0.3 k/uL (0-1.0); Monocytes % (A) 3 %; Neutrophils # (A) 7.6 k/uL (1.3-7.7); Neutrophils % (A) 88 %; Platelet Count 317 k/uL (150-450); Poikilocytosis Slight; RBC 2.86 m/uL (4.30-5.90); RDW 12.7 % (11.5-15.5); WBC 8.7 k/uL (3.8-10.6)
[2021-03-06] MEDS: ALBUTEROL HFA INHALER INHALATION SCH ×4 (08:36→19:44)
[2021-03-06 08:49] LABS: ALT 41 U/L (4-49); AST 94 U/L (17-59); African American GFR (CKD) >90 (>60 ml/min/1.73 sqM); Albumin 2.6 g/dL (3.5-5.0); Alkaline Phosphatase 61 U/L (38-126); Anion Gap 6 mmol/L; Blood Urea Nitrogen 24 mg/dL (9-20); Calcium 7.6 mg/dL (8.4-10.2); Carbon Dioxide 26 mmol/L (22-30); Chloride 104 mmol/L (98-107); Glucose 105 mg/dL (74-99); LDH 1499 U/L (313-618); Non-African American GFR(CKD) >90 (>60 ml/min/1.73 sqM); Potassium 4.3 mmol/L (3.5-5.1); Sodium 136 mmol/L (137-145); Total Bilirubin 0.7 mg/dL (0.2-1.3); Total Protein 5.2 g/dL (6.3-8.2)
[2021-03-06 09:01] LABS: C Reactive Protein 16.2 mg/dL (<1.0)
[2021-03-06] MEDS: CARBIDOPA-LEVODOPA 25-100 MG 1 EACH TAB PO SCH ×4 (10:06→22:20)
[2021-03-06] MEDS: ENOXAPARIN 40 MG/0.4 ML SYRINGE SQ SCH (10:07)
[2021-03-06] MEDS: lamoTRIgine 25 MG TAB PO SCH (10:07)
[2021-03-06] MEDS: DEXAMETHASONE SOD PHOSPHATE 10 MG/ML 1 ML VIAL IVP SCH (10:07)
[2021-03-06] MEDS: LORATADINE 10 MG TAB PO SCH (10:08)
[2021-03-06] MEDS: POTASSIUM CHLORIDE ER 10 MEQ TAB.ER.PRT PO SCH (10:09)
[2021-03-06] MEDS: MIDODRINE 5 MG TAB PO SCH ×2 (10:09→22:22)
[2021-03-06] MEDS: QUEtiapine 25 MG TAB PO SCH ×2 (10:10→22:22)
[2021-03-06] MEDS: CHOLECALCIFEROL 25 MCG (1000 IU) TABLET PO SCH (10:10)
[2021-03-06] MEDS: ZINC SULFATE 220 MG CAP PO SCH (10:11)
[2021-03-06] MEDS: HYDROcodone/APAP 5-325MG 1 EACH TAB PO PRN (10:16)
[2021-03-06 11:56] LABS: Glucose,Whole Blood 114 mg/dL (75-99)
--- NOTE | 2021-03-06 16:45 | P.PN ---
Subjective Progress Note Date: 03/06/21 Elie Mendoza is a 66 yo M with PMH of parkinson disease, HLD, GERD, major depression who presented to the ED after a fall at home. He states that he had been unsteady at home and has had frequent falls. He sustained L sided hip pain after the fall. On initial presentation vitals were stable, labs on review overall unremarkable. He was COVID positive. Hip XR showing acute subcapital fracture of the L femur. Pt currently endorses hip pain, denies chest pain, fever, chills, shortness of breath, cough. 03/01/2021 status post direct anterior left hip arthroplasty, postop day #1. Tolerated procedure well. Pain currently controlled, recently medicated with [place].Maintained on Covid regimen. Oxygen requirements worsened, increased to 15 L high flow nasal cannula. T-max 99.3., Blood cultures pending. Denies chest pain, palpitations. 03/02/2021 maintaining O2 sats in the 90s on 8 L nasal cannula O2. PE ruled out per CTA report. Compressive atelectasis, small bilateral effusions with scattered nonspecific areas of pneumonitis, nonspecific, compatible with COVID- 19 pneumonia. T-max 100.2. Pain controlled. Elevated d-dimer, pro-calcitonin, CRP and LDH. PT reporting patient currently does not have sitting balance. 03/03/2021 oxygen requirements decreased to 4 L. T-max 101.6. Maintained on Covid cocktail. Pain currently controlled. Fever workup initiated including empiric Zosyn for potential aspiration pneumonia. 03/06/21 chest x-ray pending. Minimal cough .Maintaining O2 sats in the 90s on 10 L high flow nasal cannula. T-max 99.9, normal WBC. Hemoglobin 8.6, platele ts 317, BUN 24, creatinine 0.64. D-dimer and CRP increased , LDH decreased. Telemetry denies pain,"sore". Evaluated by speech therapy with recommendations noted; tolerating modified diet without overt signs or symptoms of aspiration, continues to require modified diet-full liquids with progression to pureed with a one-to-one assist. Objective - Vital Signs Vital signs: Vital Signs Temp 97.7 F 03/06/21 00:34 Pulse 67 03/06/21 00:34 Resp 18 03/06/21 00:34 BP 109/67 03/06/21 00:34 Pulse Ox 94 L 03/06/21 00:34 Intake & Output 03/05/21 03/06/21 03/06/21 18:59 06:59 18:59 Intake Total 880 Output Total 1800 1000 300 Balance -1800 -120 -300 Weight 68.039 kg Intake: IV 780 Sodium Chloride 0.9% 1, 780 000 ml @ 130 mls/hr IV . Q7H42M [facility] Rx#:[id number] Intake, IV Titration 100 Amount Piperacillin-Tazobactam 3 100 .375 gm In Sodium Chloride 0.9% 100 ml @ 25 mls/hr IVPB Q8HR [facility] Rx# :[id number] Output: Urine 1800 1000 300 Other: Voiding Method Indwelling Catheter Indwelling Catheter - Exam General: Alert and oriented 3, generalized body stiffness,Sitting up in bed, NAD, respiratory effort increased. HEENT: normocephalic, atraumatic, oral mucosa moist Neck: supple, no JVD, CV: RRR, no murmur Lungs: normal effort, bilateral bases diminished Abd: soft, nontender, non distended, positive bowel sounds Neuro: No focal deficit. Parkinson tremors. Skin: warm and dry. Left hip dressing clean dry and intact. - Labs CBC & Chem 7: 03/06/21 08:07 03/06/21 08:07 Labs: Abnormal Lab Results - Last 24 Hours (Table) 03/05/21 03/05/21 03/06/21 Range/Units 16:54 20:20 08:07 RBC 2.86 L (4.30-5.90) m/uL Hgb 8.6 L (13.0-17.5) gm/dL Hct 24.6 L (39.0-53.0) % Lymphocytes # 0.7 L (1.0-4.8) k/uL D-Dimer (<0.60) mg/L FEU Sodium (137-145) mmol/L BUN (9-20) mg/dL Creatinine (0.66-1.25) mg/dL Glucose (74-99) mg/dL POC Glucose (mg/dL) 116 H 122 H (75-99) mg/dL Calcium (8.4-10.2) mg/dL AST (17-59) U/L Lactate Dehydrogenase (313-618) U/L C-Reactive Protein (<1.0) mg/dL Total Protein (6.3-8.2) g/dL Albumin (3.5-5.0) g/dL 03/06/21 03/06/21 03/06/21 Range/Units 08:07 08:07 11:53 RBC (4.30-5.90) m/uL Hgb (13.0-17.5) gm/dL Hct (39.0-53.0) % Lymphocytes # (1.0-4.8) k/uL D-Dimer 1.50 H (<0.60) mg/L FEU Sodium 136 L (137-145) mmol/L BUN 24 H (9-20) mg/dL Creatinine 0.64 L (0.66-1.25) mg/dL Glucose 105 H (74-99) mg/dL POC Glucose (mg/dL) 114 H (75-99) mg/dL Calcium 7.6 L (8.4-10.2) mg/dL AST 94 H (17-59) U/L Lactate Dehydrogenase 1499 H (313-618) U/L C-Reactive Protein 16.2 H (<1.0) mg/dL Total Protein 5.2 L (6.3-8.2) g/dL Albumin 2.6 L (3.5-5.0) g/dL Microbiology - Last 24 Hours (Table) 03/03/21 10:39 Blood Culture - Preliminary Blood No Growth after 72 hours 03/03/21 10:33 Blood Culture - Preliminary Blood No Growth after 72 hours 02/28/21 08:40 Blood Culture - Final Blood No Growth after 144 hours 02/28/21 08:50 Blood Culture - Final Blood No Growth after 144 hours Assessment and Plan Assessment: 1. L femur fracture, status post direct anterior left hip arthroplasty 2. COVID pneumonia. Elevated pro-calcitonin. Possible underlying aspiration pneumonia in a patient with Parkinson's 3. Acute Hypoxic respiratory failure secondary to the above, compressive atelectasis 4. Parkinson disease. 5. GERD. 6. Major depression. Plan: Continue on current medication regime, monitoring, symptomatic treatment. Maintain Zosyn, Aspiration precautions .Speech therapy consulted for swallow evaluation in this gentleman with Parkinsons. PT/OT. Maintain Covid cocktail. Aggressive pulmonary toileting with incentive spirometer reinforced. Pain management. The impression and plan of care has been dictated as directed. : I performed a history and examination of this patient, discussed the same with the dictator. I agree with the dictator's note ,documented as a scribe. Any additional findings or plans will be noted.
[2021-03-06 20:26] LABS: Glucose,Whole Blood 140 mg/dL (75-99)
[2021-03-06] MEDS: SENNOSIDES-DOCUSATE SODIUM 1 EACH TAB PO SCH (22:20)
[2021-03-06] MEDS: [UNRECOGNIZED DRUG - OTHER] PO SCH (22:20)
[2021-03-06] MEDS: ARTIFICIAL TEARS-HYPROMELLOSE DROPS 15 ML BTL BOTH EYES PRN (22:21)
[2021-03-06] MEDS: ESCITALOPRAM 10 MG TAB PO SCH (22:23)
[2021-03-06] MEDS: DONEPEZIL 10 MG TAB PO SCH (22:23)
[2021-03-06] MEDS: NON FORMULARY DRUG (Tadalafil [Tadalafil] 5 MG Tablet) PO SCH (22:25)
[2021-03-07] MEDS: PIPERACILLIN-TAZOBACTAM 3.375 GM in SODIUM CHLORIDE 0.9% 100 ML IVPB SCH ×4 (01:42→22:42)
[2021-03-07] MEDS: SODIUM CHLORIDE 0.9% 1,000 ML IV SCH ×3 (05:39→17:18)
[2021-03-07] MEDS: LACTATED RINGERS 1,000 ML IV SCH (07:34)
[2021-03-07 07:42] LABS: Glucose,Whole Blood 105 mg/dL (75-99)
[2021-03-07] MEDS: INSULIN ASPART (NovoLOG) 100 UNIT/ML VIAL SQ SCH ×4 (07:51→21:51)
[2021-03-07] MEDS: ALBUTEROL HFA INHALER INHALATION SCH ×4 (09:11→19:52)
[2021-03-07] MEDS: POTASSIUM CHLORIDE ER 10 MEQ TAB.ER.PRT PO SCH (09:43)
[2021-03-07] MEDS: ZINC SULFATE 220 MG CAP PO SCH (09:43)
[2021-03-07] MEDS: CHOLECALCIFEROL 25 MCG (1000 IU) TABLET PO SCH (09:43)
[2021-03-07] MEDS: DEXAMETHASONE SOD PHOSPHATE 10 MG/ML 1 ML VIAL IVP SCH (09:43)
[2021-03-07] MEDS: ASCORBIC ACID 500 MG TAB PO SCH ×2 (09:43→17:16)
[2021-03-07] MEDS: LORATADINE 10 MG TAB PO SCH (09:44)
[2021-03-07] MEDS: ARTIFICIAL TEARS-HYPROMELLOSE DROPS 15 ML BTL BOTH EYES PRN (09:44)
[2021-03-07] MEDS: PANTOPRAZOLE 40 MG TABLET PO SCH (09:44)
[2021-03-07] MEDS: CARBIDOPA-LEVODOPA 25-100 MG 1 EACH TAB PO SCH ×4 (09:45→21:51)
[2021-03-07] MEDS: QUEtiapine 25 MG TAB PO SCH ×2 (09:46→21:50)
[2021-03-07] MEDS: MIDODRINE 5 MG TAB PO SCH ×2 (09:47→21:51)
[2021-03-07] MEDS: lamoTRIgine 25 MG TAB PO SCH (09:47)
[2021-03-07] MEDS: ENOXAPARIN 40 MG/0.4 ML SYRINGE SQ SCH (09:50)
[2021-03-07 12:04] LABS: Glucose,Whole Blood 114 mg/dL (75-99)
--- NOTE | 2021-03-07 14:34 | P.PN ---
Subjective Progress Note Date: 03/07/21 Elie Mendoza is a 66 yo M with PMH of parkinson disease, HLD, GERD, major depression who presented to the ED after a fall at home. He states that he had been unsteady at home and has had frequent falls. He sustained L sided hip pain after the fall. On initial presentation vitals were stable, labs on review overall unremarkable. He was COVID positive. Hip XR showing acute subcapital fracture of the L femur. Pt currently endorses hip pain, denies chest pain, fever, chills, shortness of breath, cough. 03/01/2021 status post direct anterior left hip arthroplasty, postop day #1. Tolerated procedure well. Pain currently controlled, recently medicated with [place].Maintained on Covid regimen. Oxygen requirements worsened, increased to 15 L high flow nasal cannula. T-max 99.3., Blood cultures pending. Denies chest pain, palpitations. 03/02/2021 maintaining O2 sats in the 90s on 8 L nasal cannula O2. PE ruled out per CTA report. Compressive atelectasis, small bilateral effusions with scattered nonspecific areas of pneumonitis, nonspecific, compatible with COVID- 19 pneumonia. T-max 100.2. Pain controlled. Elevated d-dimer, pro-calcitonin, CRP and LDH. PT reporting patient currently does not have sitting balance. 03/03/2021 oxygen requirements decreased to 4 L. T-max 101.6. Maintained on Covid cocktail. Pain currently controlled. Fever workup initiated including empiric Zosyn for potential aspiration pneumonia. 03/06/21 chest x-ray pending. Minimal cough .Maintaining O2 sats in the 90s on 10 L high flow nasal cannula. T-max 99.9, normal WBC. Hemoglobin 8.6, platele ts 317, BUN 24, creatinine 0.64. D-dimer and CRP increased , LDH decreased. Telemetry denies pain,"sore". Evaluated by speech therapy with recommendations noted; tolerating modified diet without overt signs or symptoms of aspiration, continues to require modified diet-full liquids with progression to pureed with a one-to-one assist. 03/07/2021 maintaining O2 sats in the high 80s on 10L high flow nasal cannula. Denies shortness of breath, reports no cough. T-max 99.6. Continues on Zosyn. Currently denies pain. Objective - Vital Signs Vital signs: Vital Signs Temp 99.6 F 03/07/21 09:25 Pulse 57 L 03/07/21 09:25 Resp 14 03/07/21 09:25 BP 96/59 03/07/21 09:25 Pulse Ox 83 L 03/07/21 09:25 Intake & Output 03/06/21 03/07/21 03/07/21 18:59 06:59 18:59 Intake Total 1400 160 Output Total 300 500 Balance 1100 -340 Weight 68.039 kg Intake: IV 1200 Sodium Chloride 0.9% 1, 1200 000 ml @ 130 mls/hr IV . Q7H42M [facility] Rx#:[id number] Intake, IV Titration 200 160 Amount Lactated Ringers 1,000 ml 160 @ 20 mls/hr IV .Q24H [facility] Rx#:[id number] Piperacillin-Tazobactam 3 200 .375 gm In Sodium Chloride 0.9% 100 ml @ 25 mls/hr IVPB Q8HR [facility] Rx# :[id number] Oral 0 Output: Urine 300 500 Other: Voiding Method Indwelling Catheter Indwelling Catheter - Exam General: Alert and oriented 2, generalized body stiffness, NAD, respiratory effort increased. HEENT: normocephalic, atraumatic, oral mucosa moist Neck: supple, no JVD, CV: RRR, no murmur Lungs: normal effort, bilateral bases diminished Abd: soft, nontender, non distended, positive bowel sounds Neuro: No focal deficit. Parkinson tremors. Skin: warm and dry. Left hip dressing clean dry and intact. - Labs CBC & Chem 7: 03/06/21 08:07 03/06/21 08:07 Labs: Abnormal Lab Results - Last 24 Hours (Table) 03/06/21 03/07/21 03/07/21 Range/Units 20:25 07:40 12:03 POC Glucose (mg/dL) 140 H 105 H 114 H (75-99) mg/dL Microbiology - Last 24 Hours (Table) 03/03/21 10:39 Blood Culture - Preliminary Blood No Growth after 96 hours 03/03/21 10:33 Blood Culture - Preliminary Blood No Growth after 96 hours 02/28/21 08:40 Blood Culture - Final Blood No Growth after 144 hours 02/28/21 08:50 Blood Culture - Final Blood No Growth after 144 hours Assessment and Plan Assessment: 1. L femur fracture, status post direct anterior left hip arthroplasty 2. COVID pneumonia. Elevated pro-calcitonin. Possible underlying aspiration pneumonia in a patient with Parkinson's 3. Acute Hypoxic respiratory failure secondary to the above, compressive atelectasis 4. Parkinson disease. 5. GERD. 6. Major depression. Plan: Continue on current medication regime, monitoring, symptomatic treatment. Assist with all meals, maintain Aspiration precautions .continue Zosyn . PT/OT. Maintain Covid cocktail. Aggressive pulmonary toileting with incentive spirometer reinforced. Prognosis guarded given multiple complex medical issues. The impression and plan of care has been dictated as directed. : I performed a history and examination of this patient, discussed the same with the dictator. I agree with the dictator's note ,documented as a scribe. Any additional findings or plans will be noted.
[2021-03-07 17:08] LABS: Glucose,Whole Blood 130 mg/dL (75-99)
[2021-03-07 20:38] LABS: Glucose,Whole Blood 131 mg/dL (75-99)
[2021-03-07] MEDS: SENNOSIDES-DOCUSATE SODIUM 1 EACH TAB PO SCH (21:49)
[2021-03-07] MEDS: [UNRECOGNIZED DRUG - OTHER] PO SCH (21:49)
[2021-03-07] MEDS: ESCITALOPRAM 10 MG TAB PO SCH (21:50)
[2021-03-07] MEDS: DONEPEZIL 10 MG TAB PO SCH (21:51)
[2021-03-07] MEDS: NON FORMULARY DRUG (Tadalafil [Tadalafil] 5 MG Tablet) PO SCH (21:52)
[2021-03-08] MEDS: SODIUM CHLORIDE 0.9% 1,000 ML IV SCH ×4 (04:38→20:06)
[2021-03-08 07:15] LABS: Glucose,Whole Blood 111 mg/dL (75-99)
[2021-03-08] MEDS: ALBUTEROL HFA INHALER INHALATION SCH ×4 (07:25→20:34)
[2021-03-08 12:16] LABS: Glucose,Whole Blood 114 mg/dL (75-99)
[2021-03-08] MEDS: PIPERACILLIN-TAZOBACTAM 3.375 GM in SODIUM CHLORIDE 0.9% 100 ML IVPB SCH ×3 (12:37→22:59)
[2021-03-08] MEDS: DEXAMETHASONE SOD PHOSPHATE 10 MG/ML 1 ML VIAL IVP SCH (12:38)
[2021-03-08] MEDS: ENOXAPARIN 40 MG/0.4 ML SYRINGE SQ SCH (12:38)
--- NOTE | 2021-03-08 15:09 | P.PN ---
Subjective Progress Note Date: 03/08/21 Elie Mendoza is a 66 yo M with PMH of parkinson disease, HLD, GERD, major depression who presented to the ED after a fall at home. He states that he had been unsteady at home and has had frequent falls. He sustained L sided hip pain after the fall. On initial presentation vitals were stable, labs on review overall unremarkable. He was COVID positive. Hip XR showing acute subcapital fracture of the L femur. Pt currently endorses hip pain, denies chest pain, fever, chills, shortness of breath, cough. 03/01/2021 status post direct anterior left hip arthroplasty, postop day #1. Tolerated procedure well. Pain currently controlled, recently medicated with [place].Maintained on Covid regimen. Oxygen requirements worsened, increased to 15 L high flow nasal cannula. T-max 99.3., Blood cultures pending. Denies chest pain, palpitations. 03/02/2021 maintaining O2 sats in the 90s on 8 L nasal cannula O2. PE ruled out per CTA report. Compressive atelectasis, small bilateral effusions with scattered nonspecific areas of pneumonitis, nonspecific, compatible with COVID- 19 pneumonia. T-max 100.2. Pain controlled. Elevated d-dimer, pro-calcitonin, CRP and LDH. PT reporting patient currently does not have sitting balance. 03/03/2021 oxygen requirements decreased to 4 L. T-max 101.6. Maintained on Covid cocktail. Pain currently controlled. Fever workup initiated including empiric Zosyn for potential aspiration pneumonia. 03/06/21 chest x-ray pending. Minimal cough .Maintaining O2 sats in the 90s on 10 L high flow nasal cannula. T-max 99.9, normal WBC. Hemoglobin 8.6, platele ts 317, BUN 24, creatinine 0.64. D-dimer and CRP increased , LDH decreased. Telemetry denies pain,"sore". Evaluated by speech therapy with recommendations noted; tolerating modified diet without overt signs or symptoms of aspiration, continues to require modified diet-full liquids with progression to pureed with a one-to-one assist. 03/07/2021 maintaining O2 sats in the high 80s on 10L high flow nasal cannula. Denies shortness of breath, reports no cough. T-max 99.6. Continues on Zosyn. Currently denies pain. 03/08/2021 currently maintaining O2 sats of 100% on nonrebreather. Maintained on Zosyn, T-max 100.7. Objective - Vital Signs Vital signs: Vital Signs Temp 99.4 F 03/08/21 08:20 Pulse 71 03/08/21 08:20 Resp 17 03/08/21 08:20 BP 117/70 03/08/21 08:20 Pulse Ox 87 L 03/08/21 02:00 Intake & Output 03/07/21 03/08/21 03/08/21 18:59 06:59 18:59 Intake Total 100 Output Total 700 400 Balance -700 -300 Intake: Intake, IV Titration 100 Amount Piperacillin-Tazobactam 3 100 .375 gm In Sodium Chloride 0.9% 100 ml @ 25 mls/hr IVPB Q8HR [facility]ACED [facility] Rx# :[id number] Output: Urine 700 400 Other: Voiding Method Indwelling Catheter Indwelling Catheter Indwelling Catheter - Exam General: Alert and oriented 1-2, respiratory effort increased. HEENT: normocephalic, atraumatic, oral mucosa moist Neck: supple, no JVD, CV: RRR, no murmur Lungs: normal effort, bilateral bases diminished Abd: soft, nontender, non distended, positive bowel sounds Neuro: No focal deficit. Parkinson tremors. Skin: warm and dry. Left hip dressing clean dry and intact. - Labs CBC & Chem 7: 03/06/21 08:07 03/06/21 08:07 Labs: Abnormal Lab Results - Last 24 Hours (Table) 03/07/21 03/07/21 03/08/21 Range/Units 17:06 20:36 07:14 POC Glucose (mg/dL) 130 H 131 H 111 H (75-99) mg/dL 03/08/21 Range/Units 12:14 POC Glucose (mg/dL) 114 H (75-99) mg/dL Microbiology - Last 24 Hours (Table) 03/03/21 10:39 Blood Culture - Preliminary Blood No Growth after 120 hours 03/03/21 10:33 Blood Culture - Preliminary Blood No Growth after 120 hours Assessment and Plan Assessment: 1. L femur fracture, status post direct anterior left hip arthroplasty 2. COVID pneumonia. Elevated pro-calcitonin. Possible underlying aspiration pneumonia in a patient with Parkinson's 3. Acute Hypoxic respiratory failure secondary to the above, compressive atelectasis 4. Parkinson disease. 5. GERD. 6. Major depression. Plan: Continue on current medication regime, monitoring, symptomatic treatment. Maintain Aspiration precautions .continue with Covid cocktail. Aggressive pulmonary toileting with incentive spirometer reinforced. PCP, Dr. Ashraf recently updated ,discussed prognosis-patient's requesting patient remain a full code. Maintain supportive care. Prognosis guarded given multiple complex medical issues. The impression and plan of care has been dictated as directed. : I performed a history and examination of this patient, discussed the same with the dictator. I agree with the dictator's note ,documented as a scribe. Any additional findings or plans will be noted.
[2021-03-08] MEDS: CHOLECALCIFEROL 25 MCG (1000 IU) TABLET PO SCH (16:08)
[2021-03-08] MEDS: PANTOPRAZOLE 40 MG TABLET PO SCH (16:08)
[2021-03-08] MEDS: CARBIDOPA-LEVODOPA 25-100 MG 1 EACH TAB PO SCH ×3 (16:08→19:57)
[2021-03-08] MEDS: lamoTRIgine 25 MG TAB PO SCH (16:09)
[2021-03-08] MEDS: MIDODRINE 5 MG TAB PO SCH ×2 (16:09→19:57)
[2021-03-08] MEDS: INSULIN ASPART (NovoLOG) 100 UNIT/ML VIAL SQ SCH ×3 (16:09→20:06)
[2021-03-08] MEDS: POTASSIUM CHLORIDE ER 10 MEQ TAB.ER.PRT PO SCH (16:09)
[2021-03-08] MEDS: LORATADINE 10 MG TAB PO SCH (16:09)
[2021-03-08] MEDS: ASCORBIC ACID 500 MG TAB PO SCH ×2 (16:10→17:52)
[2021-03-08] MEDS: QUEtiapine 25 MG TAB PO SCH ×2 (16:10→19:57)
[2021-03-08] MEDS: ZINC SULFATE 220 MG CAP PO SCH (16:10)
[2021-03-08 17:00] LABS: Glucose,Whole Blood 139 mg/dL (75-99)
[2021-03-08] MEDS: LACTATED RINGERS 1,000 ML IV SCH (19:28)
[2021-03-08] MEDS: LORazepam 2 MG/ML INJ IV PRN (19:39)
[2021-03-08 19:49] LABS: Glucose,Whole Blood 150 mg/dL (75-99)
[2021-03-08] MEDS ORDERED: ACETAMINOPHEN IV (For NPO) 500 MG in EMPTY BAG 1 BAG IVPB PRN (19:52)
[2021-03-08] MEDS: SENNOSIDES-DOCUSATE SODIUM 1 EACH TAB PO SCH (19:57)
[2021-03-08] MEDS: NON FORMULARY DRUG (Tadalafil [Tadalafil] 5 MG Tablet) PO SCH (19:57)
[2021-03-08] MEDS: DONEPEZIL 10 MG TAB PO SCH (19:57)
[2021-03-08] MEDS: ESCITALOPRAM 10 MG TAB PO SCH (19:57)
[2021-03-08] MEDS: [UNRECOGNIZED DRUG - OTHER] PO SCH (19:57)
[2021-03-08] MEDS: HYDROmorphone 0.5 MG/0.5 ML SYRINGE IVP PRN (20:27)
[2021-03-09] MEDS: HYDROmorphone 0.5 MG/0.5 ML SYRINGE IVP PRN ×3 (03:31→20:16)
[2021-03-09] MEDS: PANTOPRAZOLE 40 MG TABLET PO SCH (04:33)
[2021-03-09] MEDS: LACTATED RINGERS 1,000 ML IV SCH (04:33)
[2021-03-09] MEDS: ASCORBIC ACID 500 MG TAB PO SCH ×2 (04:33→16:39)
[2021-03-09 06:14] LABS: Glucose,Whole Blood 123 mg/dL (75-99)
[2021-03-09] MEDS: INSULIN ASPART (NovoLOG) 100 UNIT/ML VIAL SQ SCH ×4 (06:21→20:22)
[2021-03-09] MEDS: ALBUTEROL HFA INHALER INHALATION SCH ×4 (09:12→20:08)
[2021-03-09] MEDS: PIPERACILLIN-TAZOBACTAM 3.375 GM in SODIUM CHLORIDE 0.9% 100 ML IVPB SCH ×2 (09:13→17:44)
[2021-03-09] MEDS: ENOXAPARIN 40 MG/0.4 ML SYRINGE SQ SCH (09:14)
[2021-03-09] MEDS: DEXAMETHASONE SOD PHOSPHATE 10 MG/ML 1 ML VIAL IVP SCH (09:14)
[2021-03-09 09:22] LABS: African American GFR (CKD) >90 (>60 ml/min/1.73 sqM); Anion Gap 5 mmol/L; Blood Urea Nitrogen 24 mg/dL (9-20); Calcium 7.5 mg/dL (8.4-10.2); Carbon Dioxide 26 mmol/L (22-30); Chloride 108 mmol/L (98-107); Glucose 101 mg/dL (74-99); Non-African American GFR(CKD) >90 (>60 ml/min/1.73 sqM); Potassium 4.3 mmol/L (3.5-5.1); Sodium 139 mmol/L (137-145)
[2021-03-09 09:23] LABS: Basophils % (A) 0 %; Eosinophils % (A) 0 %; HCT 22.6 % (39.0-53.0); HGB 7.3 gm/dL (13.0-17.5); Hypochromasia Slight; Lymphocytes # (A) 0.7 k/uL (1.0-4.8); Lymphocytes % (A) 5 %; MCH 29.9 pg (25.0-35.0); MCHC 32.2 g/dL (31.0-37.0); Mean Platelet Volume 8.2; Monocytes # (A) 0.2 k/uL (0-1.0); Monocytes % (A) 2 %; Neutrophils % (A) 93 %; Platelet Count 401 k/uL (150-450); Poikilocytosis Slight; RBC 2.44 m/uL (4.30-5.90)
[2021-03-09 09:50] LABS: MCV 92.7 fL (80.0-100.0)
[2021-03-09 11:31] LABS: Glucose,Whole Blood 128 mg/dL (75-99)
--- NOTE | 2021-03-09 13:08 | P.PN ---
Subjective Progress Note Date: 03/09/21 Elie Mendoza is a 66 yo M with PMH of parkinson disease, HLD, GERD, major depression who presented to the ED after a fall at home. He states that he had been unsteady at home and has had frequent falls. He sustained L sided hip pain after the fall. On initial presentation vitals were stable, labs on review overall unremarkable. He was COVID positive. Hip XR showing acute subcapital fracture of the L femur. Pt currently endorses hip pain, denies chest pain, fever, chills, shortness of breath, cough. 03/01/2021 status post direct anterior left hip arthroplasty, postop day #1. Tolerated procedure well. Pain currently controlled, recently medicated with [place].Maintained on Covid regimen. Oxygen requirements worsened, increased to 15 L high flow nasal cannula. T-max 99.3., Blood cultures pending. Denies chest pain, palpitations. 03/02/2021 maintaining O2 sats in the 90s on 8 L nasal cannula O2. PE ruled out per CTA report. Compressive atelectasis, small bilateral effusions with scattered nonspecific areas of pneumonitis, nonspecific, compatible with COVID- 19 pneumonia. T-max 100.2. Pain controlled. Elevated d-dimer, pro-calcitonin, CRP and LDH. PT reporting patient currently does not have sitting balance. 03/03/2021 oxygen requirements decreased to 4 L. T-max 101.6. Maintained on Covid cocktail. Pain currently controlled. Fever workup initiated including empiric Zosyn for potential aspiration pneumonia. 03/06/21 chest x-ray pending. Minimal cough .Maintaining O2 sats in the 90s on 10 L high flow nasal cannula. T-max 99.9, normal WBC. Hemoglobin 8.6, platele ts 317, BUN 24, creatinine 0.64. D-dimer and CRP increased , LDH decreased. Telemetry denies pain,"sore". Evaluated by speech therapy with recommendations noted; tolerating modified diet without overt signs or symptoms of aspiration, continues to require modified diet-full liquids with progression to pureed with a one-to-one assist. 03/07/2021 maintaining O2 sats in the high 80s on 10L high flow nasal cannula. Denies shortness of breath, reports no cough. T-max 99.6. Continues on Zosyn. Currently denies pain. 03/08/2021 currently maintaining O2 sats of 100% on nonrebreather. Maintained on Zosyn, T-max 100.7. 03/09/2021 maintaining O2 sats in the 90s on 55% BiPAP, tachypneic, minimally responsive. T-max 100.4, WBC increased to 15. Continues on Zosyn. Hemoglobin 7.3. Objective - Vital Signs Vital signs: Vital Signs Temp 98.2 F 03/09/21 12:00 Pulse 77 03/09/21 12:00 Resp 44 H 03/09/21 12:00 BP 115/68 03/09/21 12:00 Pulse Ox 96 03/09/21 12:00 Intake & Output 03/08/21 03/09/21 03/09/21 18:59 06:59 18:59 Intake Total 0 Output Total 650 Balance -650 Intake: Oral 0 Output: Urine 650 Other: Voiding Method Indwelling Catheter Indwelling Catheter Indwelling Catheter # Bowel Movements 2 1 - Exam General: Alert and oriented 1,respiratory effort increased. HEENT: normocephalic, atraumatic, oral mucosa dry Neck: supple, no JVD, CV: RRR, no murmur Lungs: normal effort, bilateral bases diminished Abd: soft, nontender, non distended, positive bowel sounds Neuro: No focal deficit. Parkinson tremors. Skin: warm and dry. - Labs CBC & Chem 7: 03/09/21 07:39 03/09/21 07:39 Labs: Abnormal Lab Results - Last 24 Hours (Table) 03/08/21 03/08/21 03/09/21 Range/Units 16:59 19:45 06:13 WBC (3.8-10.6) k/uL RBC (4.30-5.90) m/uL Hgb (13.0-17.5) gm/dL Hct (39.0-53.0) % Neutrophils # (1.3-7.7) k/uL Lymphocytes # (1.0-4.8) k/uL Chloride (98-107) mmol/L BUN (9-20) mg/dL Creatinine (0.66-1.25) mg/dL Glucose (74-99) mg/dL POC Glucose (mg/dL) 139 H 150 H 123 H (75-99) mg/dL Calcium (8.4-10.2) mg/dL 03/09/21 03/09/21 03/09/21 Range/Units 07:39 07:39 11:28 WBC 15.0 H (3.8-10.6) k/uL RBC 2.44 L (4.30-5.90) m/uL Hgb 7.3 L (13.0-17.5) gm/dL Hct 22.6 L (39.0-53.0) % Neutrophils # 14.0 H (1.3-7.7) k/uL Lymphocytes # 0.7 L (1.0-4.8) k/uL Chloride 108 H (98-107) mmol/L BUN 24 H (9-20) mg/dL Creatinine 0.56 L (0.66-1.25) mg/dL Glucose 101 H (74-99) mg/dL POC Glucose (mg/dL) 128 H (75-99) mg/dL Calcium 7.5 L (8.4-10.2) mg/dL Microbiology - Last 24 Hours (Table) 03/03/21 10:39 Blood Culture - Preliminary Blood No Growth after 120 hours 03/03/21 10:33 Blood Culture - Preliminary Blood No Growth after 120 hours Assessment and Plan Assessment: 1. L femur fracture, status post direct anterior left hip arthroplasty 2. Acute Anemia, postop, expected outcome 3. COVID pneumonia. Elevated pro-calcitonin. Possible underlying aspiration pneumonia in a patient with Parkinson's 4. Acute Hypoxic respiratory failure secondary to the above, compressive atelectasis 5. Parkinson disease. 6. GERD. 7. Major depression. Plan: Continue on current medication regime, monitoring, symptomatic treatment. Condition declining, will be updated further and discuss CODE STATUS. Maintain Covid cocktail, Zosyn, aspiration precautions. Repeat hemoglobin this afternoon. Maintain supportive care. Prognosis guarded given multiple complex medical issues. The impression and plan of care has been dictated as directed. : I performed a history and examination of this patient, discussed the same with the dictator. I agree with the dictator's note ,documented as a scribe. Any additional findings or plans will be noted.
[2021-03-09 16:24] LABS: HCT 24.4 % (39.0-53.0); HGB 7.9 gm/dL (13.0-17.5); Hypochromasia Slight; MCHC 32.6 g/dL (31.0-37.0); Mean Platelet Volume 7.9; Platelet Count 449 k/uL (150-450); Poikilocytosis Slight; RBC 2.65 m/uL (4.30-5.90); RDW 14.2 % (11.5-15.5); WBC 18.3 k/uL (3.8-10.6)
[2021-03-09 16:32] LABS: Glucose,Whole Blood 138 mg/dL (75-99)
[2021-03-09] MEDS: CARBIDOPA-LEVODOPA 25-100 MG 1 EACH TAB PO SCH ×4 (16:37→20:23)
[2021-03-09] MEDS: MIDODRINE 5 MG TAB PO SCH ×2 (16:37→20:21)
[2021-03-09] MEDS: lamoTRIgine 25 MG TAB PO SCH (16:37)
[2021-03-09] MEDS: SODIUM CHLORIDE 0.9% 1,000 ML IV SCH ×2 (16:37→17:43)
[2021-03-09] MEDS: CHOLECALCIFEROL 25 MCG (1000 IU) TABLET PO SCH (16:37)
[2021-03-09] MEDS: LORATADINE 10 MG TAB PO SCH (16:37)
[2021-03-09] MEDS: POTASSIUM CHLORIDE ER 10 MEQ TAB.ER.PRT PO SCH (16:38)
[2021-03-09] MEDS: ZINC SULFATE 220 MG CAP PO SCH (16:38)
[2021-03-09] MEDS: QUEtiapine 25 MG TAB PO SCH ×2 (16:38→20:21)
[2021-03-09] MEDS: LORazepam 2 MG/ML INJ IV PRN (20:16)
[2021-03-09] MEDS: ESCITALOPRAM 10 MG TAB PO SCH (20:18)
[2021-03-09] MEDS: DONEPEZIL 10 MG TAB PO SCH (20:18)
[2021-03-09] MEDS: [UNRECOGNIZED DRUG - OTHER] PO SCH (20:18)
[2021-03-09] MEDS: NON FORMULARY DRUG (Tadalafil [Tadalafil] 5 MG Tablet) PO SCH (20:21)
[2021-03-09] MEDS: SENNOSIDES-DOCUSATE SODIUM 1 EACH TAB PO SCH (20:21)
[2021-03-09 20:24] LABS: Glucose,Whole Blood 135 mg/dL (75-99)
[2021-03-10] MEDS: SODIUM CHLORIDE 0.9% 1,000 ML IV SCH ×3 (00:15→17:27)
[2021-03-10] MEDS: PIPERACILLIN-TAZOBACTAM 3.375 GM in SODIUM CHLORIDE 0.9% 100 ML IVPB SCH ×4 (00:16→23:32)
[2021-03-10] MEDS: LACTATED RINGERS 1,000 ML IV SCH (00:17)
[2021-03-10] MEDS: LORazepam 2 MG/ML INJ IV PRN ×3 (04:41→22:25)
[2021-03-10] MEDS: HYDROmorphone 0.5 MG/0.5 ML SYRINGE IVP PRN ×2 (04:42→20:27)
[2021-03-10] MEDS: PANTOPRAZOLE 40 MG TABLET PO SCH (06:09)
[2021-03-10] MEDS: ASCORBIC ACID 500 MG TAB PO SCH ×2 (06:09→17:00)
[2021-03-10 06:17] LABS: Glucose,Whole Blood 111 mg/dL (75-99)
[2021-03-10] MEDS: INSULIN ASPART (NovoLOG) 100 UNIT/ML VIAL SQ SCH ×4 (06:17→20:30)
[2021-03-10] MEDS: ALBUTEROL HFA INHALER INHALATION SCH ×4 (07:44→20:49)
[2021-03-10 07:53] LABS: African American GFR (CKD) >90 (>60 ml/min/1.73 sqM); Anion Gap 4 mmol/L; Blood Urea Nitrogen 27 mg/dL (9-20); Calcium 7.8 mg/dL (8.4-10.2); Carbon Dioxide 26 mmol/L (22-30); Chloride 110 mmol/L (98-107); Glucose 107 mg/dL (74-99); Non-African American GFR(CKD) >90 (>60 ml/min/1.73 sqM); Sodium 140 mmol/L (137-145)
[2021-03-10] MEDS: CHOLECALCIFEROL 25 MCG (1000 IU) TABLET PO SCH (08:21)
[2021-03-10] MEDS: CARBIDOPA-LEVODOPA 25-100 MG 1 EACH TAB PO SCH ×4 (08:21→20:30)
[2021-03-10] MEDS: lamoTRIgine 25 MG TAB PO SCH (08:22)
[2021-03-10] MEDS: LORATADINE 10 MG TAB PO SCH (08:22)
[2021-03-10] MEDS: POTASSIUM CHLORIDE ER 10 MEQ TAB.ER.PRT PO SCH (08:22)
[2021-03-10] MEDS: QUEtiapine 25 MG TAB PO SCH ×2 (08:22→20:30)
[2021-03-10] MEDS: ZINC SULFATE 220 MG CAP PO SCH (08:22)
[2021-03-10] MEDS: MIDODRINE 5 MG TAB PO SCH ×2 (08:22→20:30)
[2021-03-10] MEDS: DEXAMETHASONE SOD PHOSPHATE 10 MG/ML 1 ML VIAL IVP SCH (09:13)
[2021-03-10] MEDS: ENOXAPARIN 40 MG/0.4 ML SYRINGE SQ SCH (09:14)
[2021-03-10] MEDS: DILTIAZEM 125 MG in SODIUM CHLORIDE 0.9% 100 ML IV SCH (10:54)
[2021-03-10 11:59] LABS: Glucose,Whole Blood 123 mg/dL (75-99)
[2021-03-10] MEDS ORDERED: ACETAMINOPHEN IV (For NPO) 1,000 MG in EMPTY BAG 1 BAG IVPB SCH (12:00)
--- NOTE | 2021-03-10 16:44 | P.PN ---
Subjective Progress Note Date: 03/10/21 Elie Mendoza is a 66 yo M with PMH of parkinson disease, HLD, GERD, major depression who presented to the ED after a fall at home. He states that he had been unsteady at home and has had frequent falls. He sustained L sided hip pain after the fall. On initial presentation vitals were stable, labs on review overall unremarkable. He was COVID positive. Hip XR showing acute subcapital fracture of the L femur. Pt currently endorses hip pain, denies chest pain, fever, chills, shortness of breath, cough. 03/01/2021 status post direct anterior left hip arthroplasty, postop day #1. Tolerated procedure well. Pain currently controlled, recently medicated with [place].Maintained on Covid regimen. Oxygen requirements worsened, increased to 15 L high flow nasal cannula. T-max 99.3., Blood cultures pending. Denies chest pain, palpitations. 03/02/2021 maintaining O2 sats in the 90s on 8 L nasal cannula O2. PE ruled out per CTA report. Compressive atelectasis, small bilateral effusions with scattered nonspecific areas of pneumonitis, nonspecific, compatible with COVID- 19 pneumonia. T-max 100.2. Pain controlled. Elevated d-dimer, pro-calcitonin, CRP and LDH. PT reporting patient currently does not have sitting balance. 03/03/2021 oxygen requirements decreased to 4 L. T-max 101.6. Maintained on Covid cocktail. Pain currently controlled. Fever workup initiated including empiric Zosyn for potential aspiration pneumonia. 03/06/21 chest x-ray pending. Minimal cough .Maintaining O2 sats in the 90s on 10 L high flow nasal cannula. T-max 99.9, normal WBC. Hemoglobin 8.6, platele ts 317, BUN 24, creatinine 0.64. D-dimer and CRP increased , LDH decreased. Telemetry denies pain,"sore". Evaluated by speech therapy with recommendations noted; tolerating modified diet without overt signs or symptoms of aspiration, continues to require modified diet-full liquids with progression to pureed with a one-to-one assist. 03/07/2021 maintaining O2 sats in the high 80s on 10L high flow nasal cannula. Denies shortness of breath, reports no cough. T-max 99.6. Continues on Zosyn. Currently denies pain. 03/08/2021 currently maintaining O2 sats of 100% on nonrebreather. Maintained on Zosyn, T-max 100.7. 03/09/2021 maintaining O2 sats in the 90s on 55% BiPAP, tachypneic, minimally responsive. T-max 100.4, WBC increased to 15. Continues on Zosyn. Hemoglobin 7.3. 03/10/2021 condition declining, developed atrial fibrillation with RVR, placed on Cardizem drip. Patient and out of atrial fibrillation with heart rates up into the 180s. This morning tachypneic, labored breathing/accessory muscle use with the sensory muscle use, not responding. Requiring BiPAP to maintain O2 sats in the 90s. T-max 100.9. BUN 27/ Creatinine 0.6. PCP, Dr. Elie Platt spoke with earlier this morning regarding patient declining,code status/comfort care- is discussing with youngest daughter. Objective - Vital Signs Vital signs: Vital Signs Temp 99.2 F 03/10/21 16:22 Pulse 82 03/10/21 16:22 Resp 32 H 03/10/21 16:22 BP 119/68 03/10/21 16:22 Pulse Ox 97 03/10/21 16:22 Intake & Output 03/09/21 03/10/21 03/10/21 18:59 06:59 18:59 Intake Total 1100 200 Output Total 1250 650 500 Balance -1250 450 -300 Weight 68.039 kg Intake: Intake, IV Titration 1100 200 Amount ACETAMINOPHEN IV (For NPO 100 ) 1,000 mg In Empty Bag 1 bag @ 400 mls/hr IVPB Q6HR [facility] Rx#:[id number] Piperacillin-Tazobactam 3 100 100 .375 gm In Sodium Chloride 0.9% 100 ml @ 25 mls/hr IVPB Q8HR [facility] Rx# :[id number] Sodium Chloride 0.9% 1, 1000 000 ml @ 130 mls/hr IV . Q7H42M [facility] Rx#:[id number] Oral 0 0 Output: Urine 1250 650 500 Other: Voiding Method Indwelling Catheter Indwelling Catheter Indwelling Catheter - Exam General: Unresponsive, respiratory effort increased, on BiPAP HEENT: normocephalic, atraumatic, oral mucosa dry Neck: supple, no JVD, CV: RRR, no murmur Lungs: Increased effort, labored/accessory muscle use, bilateral bases diminished with crackles and scattered rhonchi Abd: soft, nontender, non distended, positive bowel sounds Neuro: No focal deficit. Parkinson tremors. Skin: warm and dry. - Labs CBC & Chem 7: 03/09/21 16:07 03/10/21 07:20 Labs: Abnormal Lab Results - Last 24 Hours (Table) 03/09/21 03/10/21 03/10/21 Range/Units 20:22 06:15 07:20 Chloride 110 H (98-107) mmol/L BUN 27 H (9-20) mg/dL Creatinine 0.60 L (0.66-1.25) mg/dL Glucose 107 H (74-99) mg/dL POC Glucose (mg/dL) 135 H 111 H (75-99) mg/dL Calcium 7.8 L (8.4-10.2) mg/dL 03/10/21 Range/Units 11:57 Chloride (98-107) mmol/L BUN (9-20) mg/dL Creatinine (0.66-1.25) mg/dL Glucose (74-99) mg/dL POC Glucose (mg/dL) 123 H (75-99) mg/dL Calcium (8.4-10.2) mg/dL Microbiology - Last 24 Hours (Table) 03/03/21 10:39 Blood Culture - Final Blood No Growth after 144 hours 03/03/21 10:33 Blood Culture - Final Blood No Growth after 144 hours Assessment and Plan Assessment: 1. L femur fracture, status post direct anterior left hip arthroplasty 2. Acute Anemia, postop, expected outcome 3. COVID pneumonia. Elevated pro-calcitonin. Possible underlying aspiration pneumonia in a patient with Parkinson's 4. Acute Hypoxic respiratory failure secondary to the above, compressive atelectasis 5. Acute metabolic encephalopathy secondary to the above 6.. Parkinson disease. 7.. GERD. 8.. Major depression. 9. Proximal atrial fibrillation with RVR Plan: Continue on current medication regime, monitoring, symptomatic treatment. Condition declining, and daughter discussing amongst themselves CODE STATUS/comfort care & and will notify PCP with their decision. Maintain supporti ve care. Prognosis poor given multiple complex medical issues. The impression and plan of care has been dictated as directed. : I performed a history and examination of this patient, discussed the same with the dictator. I agree with the dictator's note ,documented as a scribe. Any additional findings or plans will be noted.
[2021-03-10 17:05] LABS: Glucose,Whole Blood 147 mg/dL (75-99)
[2021-03-10 20:28] LABS: Glucose,Whole Blood 131 mg/dL (75-99)
[2021-03-10] MEDS: DONEPEZIL 10 MG TAB PO SCH (20:29)
[2021-03-10] MEDS: [UNRECOGNIZED DRUG - OTHER] PO SCH (20:29)
[2021-03-10] MEDS: ESCITALOPRAM 10 MG TAB PO SCH (20:29)
[2021-03-10] MEDS: SENNOSIDES-DOCUSATE SODIUM 1 EACH TAB PO SCH (20:30)
[2021-03-10] MEDS: NON FORMULARY DRUG (Tadalafil [Tadalafil] 5 MG Tablet) PO SCH (20:30)
[2021-03-11 03:15] LABS: Glucose,Whole Blood 123 mg/dL (75-99)
[2021-03-11] MEDS: HYDROmorphone 0.5 MG/0.5 ML SYRINGE IVP PRN ×6 (03:15→22:41)
[2021-03-11] MEDS: LORazepam 2 MG/ML INJ IV PRN ×3 (03:16→19:06)
[2021-03-11] MEDS ORDERED: LORazepam 2 MG/ML INJ IV STA (03:35)
[2021-03-11] MEDS: ASCORBIC ACID 500 MG TAB PO SCH ×2 (05:35→18:47)
[2021-03-11] MEDS: LACTATED RINGERS 1,000 ML IV SCH (05:35)
[2021-03-11] MEDS: PANTOPRAZOLE 40 MG TABLET PO SCH (05:35)
[2021-03-11 06:13] LABS: Glucose,Whole Blood 113 mg/dL (75-99)
[2021-03-11] MEDS: INSULIN ASPART (NovoLOG) 100 UNIT/ML VIAL SQ SCH ×3 (06:28→20:42)
[2021-03-11] MEDS: ALBUTEROL HFA INHALER INHALATION SCH ×4 (08:17→20:41)
[2021-03-11] MEDS: DILTIAZEM 125 MG in SODIUM CHLORIDE 0.9% 100 ML IV SCH (10:26)
[2021-03-11 12:06] LABS: Glucose,Whole Blood 113 mg/dL (75-99)
--- NOTE | 2021-03-11 13:54 | P.PN ---
Subjective From records : Elie Mendoza is a 66 yo M with PMH of parkinson disease, HLD, GERD, major depression who presented to the ED after a fall at home. He states that he had been unsteady at home and has had frequent falls. He sustained L sided hip pain after the fall. On initial presentation vitals were stable, labs on review overall unremarkable. He was COVID positive. Hip XR showing acute subcapital fracture of the L femur. Pt currently endorses hip pain, denies chest pain, fever, chills, shortness of breath, cough. 03/01/2021 status post direct anterior left hip arthroplasty, postop day #1. Tolerated procedure well. Pain currently controlled, recently medicated with [place].Maintained on Covid regimen. Oxygen requirements worsened, increased to 15 L high flow nasal cannula. T-max 99.3., Blood cultures pending. Denies chest pain, palpitations. 03/02/2021 maintaining O2 sats in the 90s on 8 L nasal cannula O2. PE ruled out per CTA report. Compressive atelectasis, small bilateral effusions with scattered nonspecific areas of pneumonitis, nonspecific, compatible with COVID- 19 pneumonia. T-max 100.2. Pain controlled. Elevated d-dimer, pro-calcitonin, CRP and LDH. PT reporting patient currently does not have sitting balance. 03/03/2021 oxygen requirements decreased to 4 L. T-max 101.6. Maintained on Covid cocktail. Pain currently controlled. Fever workup initiated including empiric Zosyn for potential aspiration pneumonia. 03/06/21 chest x-ray pending. Minimal cough .Maintaining O2 sats in the 90s on 10 L high flow nasal cannula. T-max 99.9, normal WBC. Hemoglobin 8.6, platelets 317, BUN 24, creatinine 0.64. D-dimer and CRP increased , LDH decreased. Telemetry denies pain,"sore". Evaluated by speech therapy with recommendations noted; tolerating modified diet without overt signs or symptoms of aspiration, continues to require modified diet-full liquids with progression to pureed with a one-to-one assist. 03/07/2021 maintaining O2 sats in the high 80s on 10L high flow nasal cannula. Denies shortness of breath, reports no cough. T-max 99.6. Continues on Zosyn. Currently denies pain. 03/08/2021 currently maintaining O2 sats of 100% on nonrebreather. Maintained on Zosyn, T-max 100.7. 03/09/2021 maintaining O2 sats in the 90s on 55% BiPAP, tachypneic, minimally responsive. T-max 100.4, WBC increased to 15. Continues on Zosyn. Hemoglobin 7.3. 03/10/2021 condition declining, developed atrial fibrillation with RVR, placed on Cardizem drip. Patient and out of atrial fibrillation with heart rates up into the 180s. This morning tachypneic, labored breathing/accessory muscle use with the sensory muscle use, not responding. Requiring BiPAP to maintain O2 sats in the 90s. T-max 100.9. BUN 27/ Creatinine 0.6. PCP, Dr. Elie Platt spoke with earlier this morning regarding patient declining,code status/comfort care- is discussing with youngest daughter. subjective: The care of the patient 03/11/2021 Patient was admitted with severe bilateral Covid pneumonia with severe hypoxia been evaluated by route salesman and received all treatment per protocol. De spite all the treatment and oxygen supplementation however patient continued to declining and currently he is on BiPAP, he is unresponsive, and his oxygen saturation gradually worsening. Yesterday PCP spoke with the family and about comfort care. I talked to his today most on at [phone] and a discussed the case with her, she told me she wanted to keep him on BiPAP now and she will come with her daughters and sister to see him and after that they will make him comfort care. Discussed with bed side nurse Objective - Vital Signs Vital signs: Vital Signs Temp 98.6 F 03/11/21 00:00 Pulse 77 03/11/21 03:19 Resp 58 H 03/11/21 03:19 BP 116/55 03/11/21 03:19 Pulse Ox 65 L 03/11/21 03:10 Intake & Output 03/10/21 03/11/21 03/11/21 18:59 06:59 18:59 Intake Total 940 0 117.667 Output Total 500 725 300 Balance 440 725 -182.333 Weight 68.039 kg Intake: Intake, IV Titration 940 117.667 Amount ACETAMINOPHEN IV (For NPO 100 ) 1,000 mg In Empty Bag 1 bag @ 400 mls/hr IVPB Q6HR [facility] Rx#:[id number] Diltiazem 125 mg In 20 117.667 Sodium Chloride 0.9% 100 ml @ 5 MG/HR 5 mls/hr IV .Q24H [facility] Rx#:[id number] Piperacillin-Tazobactam 3 300 .375 gm In Sodium Chloride 0.9% 100 ml @ 25 mls/hr IVPB Q8HR [facility] Rx# :[id number] Sodium Chloride 0.9% 1, 520 000 ml @ 130 mls/hr IV . Q7H42M [facility] Rx#:[id number] Oral 0 0 Output: Urine 500 725 300 Other: Voiding Method Indwelling Catheter Indwelling Catheter - Exam -GENERAL: The patient is unresponsive, obtunded and on BiPAP HEENT: Pupils are round and equally reacting to light. EOMI. No scleral icterus. No conjunctival pallor. Normocephalic, atraumatic. No pharyngeal erythema. No thyromegaly. CARDIOVASCULAR: S1 and S2 present. No murmurs, rubs, or gallops. -PULMONARY: Chest is clear to auscultation, no wheezing . bilateral crepitation with decreased air entry on both sides ABDOMEN: Soft, nontender, nondistended, normoactive bowel sounds. No palpable organomegaly. MUSCULOSKELETAL: No joint swelling or deformity. EXTREMITIES: No cyanosis, clubbing, or pedal edema. NEUROLOGICAL: Gross neurological examination did not reveal any focal deficits. SKIN: No rashes. no petechiae. - Labs CBC & Chem 7: 03/09/21 16:07 03/10/21 07:20 Labs: Abnormal Lab Results - Last 24 Hours (Table) 03/10/21 03/10/21 03/10/21 Range/Units 11:57 17:02 20:27 POC Glucose (mg/dL) 123 H 147 H 131 H (75-99) mg/dL 03/11/21 03/11/21 Range/Units 03:14 06:12 POC Glucose (mg/dL) 123 H 113 H (75-99) mg/dL Assessment and Plan Assessment: 1. L femur fracture, status post direct anterior left hip arthroplasty 2. Acute Anemia, postop, expected outcome 3. COVID pneumonia. Elevated pro-calcitonin. Possible underlying aspiration pneumonia in a patient with Parkinson's 4. Acute Hypoxic respiratory failure secondary to the above, compressive atelectasis 5. Acute metabolic encephalopathy secondary to the above 6.. Parkinson disease. 7.. GERD. 8.. Major depression. 9. Proximal atrial fibrillation with RVR Plan: This is a 66 years old male who presents with Covid pneumonia, femoral fracture and other comorbidities as above Despite treatment patient condition is declining and family wanted to keep him on BiPAP and later on comfort care measures and consult hospice after family, and to visit him today Discussed with staff Very poor prognosis No code per my discussion with
[2021-03-11 17:11] LABS: Glucose,Whole Blood 133 mg/dL (75-99)
[2021-03-11] MEDS: PIPERACILLIN-TAZOBACTAM 3.375 GM in SODIUM CHLORIDE 0.9% 100 ML IVPB SCH ×3 (17:16→23:48)
[2021-03-11] MEDS: SODIUM CHLORIDE 0.9% 1,000 ML IV SCH ×4 (17:24→23:49)
[2021-03-11] MEDS: DEXAMETHASONE SOD PHOSPHATE 10 MG/ML 1 ML VIAL IVP SCH (18:44)
[2021-03-11] MEDS: CARBIDOPA-LEVODOPA 25-100 MG 1 EACH TAB PO SCH ×2 (18:44→19:50)
[2021-03-11] MEDS: CHOLECALCIFEROL 25 MCG (1000 IU) TABLET PO SCH (18:44)
[2021-03-11] MEDS: ENOXAPARIN 40 MG/0.4 ML SYRINGE SQ SCH (18:44)
[2021-03-11] MEDS: lamoTRIgine 25 MG TAB PO SCH (18:44)
[2021-03-11] MEDS: LORATADINE 10 MG TAB PO SCH (18:44)
[2021-03-11] MEDS: ZINC SULFATE 220 MG CAP PO SCH (18:45)
[2021-03-11] MEDS: POTASSIUM CHLORIDE ER 10 MEQ TAB.ER.PRT PO SCH (18:45)
[2021-03-11] MEDS: QUEtiapine 25 MG TAB PO SCH ×2 (18:45→19:51)
[2021-03-11] MEDS: MIDODRINE 5 MG TAB PO SCH ×2 (18:45→19:51)
[2021-03-11] MEDS: NON FORMULARY DRUG (Tadalafil [Tadalafil] 5 MG Tablet) PO SCH (19:51)
[2021-03-11] MEDS: DONEPEZIL 10 MG TAB PO SCH (19:51)
[2021-03-11] MEDS: SENNOSIDES-DOCUSATE SODIUM 1 EACH TAB PO SCH (19:51)
[2021-03-11] MEDS: ESCITALOPRAM 10 MG TAB PO SCH (19:51)
[2021-03-11 20:36] LABS: Glucose,Whole Blood 126 mg/dL (75-99)
[2021-03-11] MEDS: [UNRECOGNIZED DRUG - OTHER] PO SCH (20:41)
[2021-03-12] MEDS: HYDROmorphone 0.5 MG/0.5 ML SYRINGE IVP PRN ×2 (01:43→05:02)
[2021-03-12] MEDS: LORazepam 2 MG/ML INJ IV PRN (01:44)
[2021-03-12] MEDS ORDERED: LORazepam 2 MG/ML INJ IV PRN (05:34)
[2021-03-12] MEDS ORDERED: SCOPOLAMINE 1.5MG/72HR PATCH TRANSDERM SCH (06:00)
[2021-03-12] MEDS ORDERED: MORPHINE SULFATE (100 MG/2 ML) 100 MG in SODIUM CHLORIDE 0.9% 100 ML IV SCH (06:00)
[2021-03-12] MEDS ORDERED: GLYCOPYRROLATE 0.2 MG/ML 2 ML VIAL IVP PRN (06:00)
[2021-03-12] MEDS: MORPHINE SULFATE 2 MG/ML SYRINGE IV PRN ×4 (06:04→07:08)
[2021-03-12 06:12] LABS: Glucose,Whole Blood 155 mg/dL (75-99)
[2021-03-12] MEDS: SODIUM CHLORIDE 0.9% 1,000 ML IV SCH (06:14)
[2021-03-12] MEDS: LACTATED RINGERS 1,000 ML IV SCH (06:34)
[2021-03-12] MEDS: INSULIN ASPART (NovoLOG) 100 UNIT/ML VIAL SQ SCH (06:46)
[2021-03-12] MEDS: ASCORBIC ACID 500 MG TAB PO SCH (06:46)
[2021-03-12] MEDS: PANTOPRAZOLE 40 MG TABLET PO SCH (06:46)
[2021-03-12] MEDS ORDERED: ATROPINE OPHTH SOLN 1% 5ML BTL SUBLINGUAL PRN (08:00)
[2021-03-12] MEDS: ALBUTEROL HFA INHALER INHALATION SCH ×3 (08:31→17:16)
[2021-03-12 10:23] VITALS: PULSE 96; RESP 24
[2021-03-12 10:25] VITALS: BP 97/56; TEMP 99.9
--- NOTE | 2021-03-12 13:04 | P.PN ---
Subjective From records : Elie Mendoza is a 66 yo M with PMH of parkinson disease, HLD, GERD, major depression who presented to the ED after a fall at home. He states that he had been unsteady at home and has had frequent falls. He sustained L sided hip pain after the fall. On initial presentation vitals were stable, labs on review overall unremarkable. He was COVID positive. Hip XR showing acute subcapital fracture of the L femur. Pt currently endorses hip pain, denies chest pain, fever, chills, shortness of breath, cough. 03/01/2021 status post direct anterior left hip arthroplasty, postop day #1. Tolerated procedure well. Pain currently controlled, recently medicated with [place].Maintained on Covid regimen. Oxygen requirements worsened, increased to 15 L high flow nasal cannula. T-max 99.3., Blood cultures pending. Denies chest pain, palpitations. 03/02/2021 maintaining O2 sats in the 90s on 8 L nasal cannula O2. PE ruled out per CTA report. Compressive atelectasis, small bilateral effusions with scattered nonspecific areas of pneumonitis, nonspecific, compatible with COVID- 19 pneumonia. T-max 100.2. Pain controlled. Elevated d-dimer, pro-calcitonin, CRP and LDH. PT reporting patient currently does not have sitting balance. 03/03/2021 oxygen requirements decreased to 4 L. T-max 101.6. Maintained on Covid cocktail. Pain currently controlled. Fever workup initiated including empiric Zosyn for potential aspiration pneumonia. 03/06/21 chest x-ray pending. Minimal cough .Maintaining O2 sats in the 90s on 10 L high flow nasal cannula. T-max 99.9, normal WBC. Hemoglobin 8.6, platelets 317, BUN 24, creatinine 0.64. D-dimer and CRP increased , LDH decreased. Telemetry denies pain,"sore". Evaluated by speech therapy with recommendations noted; tolerating modified diet without overt signs or symptoms of aspiration, continues to require modified diet-full liquids with progression to pureed with a one-to-one assist. 03/07/2021 maintaining O2 sats in the high 80s on 10L high flow nasal cannula. Denies shortness of breath, reports no cough. T-max 99.6. Continues on Zosyn. Currently denies pain. 03/08/2021 currently maintaining O2 sats of 100% on nonrebreather. Maintained on Zosyn, T-max 100.7. 03/09/2021 maintaining O2 sats in the 90s on 55% BiPAP, tachypneic, minimally responsive. T-max 100.4, WBC increased to 15. Continues on Zosyn. Hemoglobin 7.3. 03/10/2021 condition declining, developed atrial fibrillation with RVR, placed on Cardizem drip. Patient and out of atrial fibrillation with heart rates up into the 180s. This morning tachypneic, labored breathing/accessory muscle use with the sensory muscle use, not responding. Requiring BiPAP to maintain O2 sats in the 90s. T-max 100.9. BUN 27/ Creatinine 0.6. PCP, Dr. Elie Platt spoke with earlier this morning regarding patient declining,code status/comfort care- is discussing with youngest daughter. subjective: The care of the patient 03/11/2021 Patient was admitted with severe bilateral Covid pneumonia with severe hypoxia been evaluated by audit tech and received all treatment per protocol. De spite all the treatment and oxygen supplementation however patient continued to declining and currently he is on BiPAP, he is unresponsive, and his oxygen saturation gradually worsening. Yesterday PCP spoke with the family and about comfort care. I talked to his today most on at [phone] and a discussed the case with her, she told me she wanted to keep him on BiPAP now and she will come with her daughters and sister to see him and after that they will make him comfort care. Discussed with bed side nurse 03/12/2021 Till last night the family having decided about comfort care measures therefore we kept the patient on BiPAP and we ordered labs and chest x-ray in the morning. However before this done I got a call about 4 AM today from the bedside nurse stating that oxygen started dropping and they call the and she decided to go with comfort care measures. His oxygen dropped to 53% this morning while on BiPAP and 100% FiO2 So patient was started on Ativan, morphine as needed, scopolamine and atropine. Patient currently looks comfortable Prognosis is extremely poor Objective - Vital Signs Vital signs: Vital Signs Temp 99.0 F 03/11/21 20:00 Pulse 103 H 03/12/21 04:00 Resp 46 H 03/12/21 04:00 BP 117/59 03/12/21 04:00 Pulse Ox 53 L 03/12/21 04:00 Intake & Output 03/11/21 03/12/21 03/12/21 18:59 06:59 18:59 Intake Total 673.267 7506.499 2.601 Output Total 950 550 Balance -832.333 552.499 2.601 Intake: Intake, IV Titration 334.971 9502.499 2.601 Amount Diltiazem 125 mg In 117.667 Sodium Chloride 0.9% 100 ml @ 5 MG/HR 5 mls/hr IV .Q24H [facility] Rx#:[id number] Morphine Sulfate (100 mg/ 2.499 2.601 2 ml) 100 mg In Sodium Chloride 0.9% 100 ml @ 1 MG/HR 1.02 mls/hr IV . Q24H [facility] Rx#:[id number] Piperacillin-Tazobactam 3 100 .375 gm In Sodium Chloride 0.9% 100 ml @ 25 mls/hr IVPB Q8HR [facility] Rx# :[id number] Sodium Chloride 0.9% 1, 1000 000 ml @ 0 mls/hr IV .[facility] Rx#:[id number] Oral 0 Output: Urine 950 550 Other: Voiding Method Indwelling Catheter Indwelling Catheter - Exam -GENERAL: The patient is unresponsive, obtunded and on BiPAP HEENT: Pupils are round and equally reacting to light. EOMI. No scleral icterus. No conjunctival pallor. Normocephalic, atraumatic. No pharyngeal erythema. No thyromegaly. CARDIOVASCULAR: S1 and S2 present. No murmurs, rubs, or gallops. -PULMONARY: Chest is clear to auscultation, no wheezing . bilateral crepitation with decreased air entry on both sides ABDOMEN: Soft, nontender, nondistended, normoactive bowel sounds. No palpable organomegaly. MUSCULOSKELETAL: No joint swelling or deformity. EXTREMITIES: No cyanosis, clubbing, or pedal edema. NEUROLOGICAL: Gross neurological examination did not reveal any focal deficits. SKIN: No rashes. no petechiae. - Labs CBC & Chem 7: 03/09/21 16:07 03/10/21 07:20 Labs: Abnormal Lab Results - Last 24 Hours (Table) 03/11/21 03/11/21 03/11/21 Range/Units 12:03 17:08 20:35 POC Glucose (mg/dL) 113 H 133 H 126 H (75-99) mg/dL 03/12/21 Range/Units 06:11 POC Glucose (mg/dL) 155 H (75-99) mg/dL Assessment and Plan Assessment: 1. End of life care, comfort care for advanced, end-stage lung disease secondary to his Covid infection 2. COVID pneumonia. Elevated pro-calcitonin. Possible underlying aspiration pneumonia in a patient with Parkinson's 3. Acute Anemia, postop, expected outcome 4. Acute Hypoxic respiratory failure secondary to the above, compressive atelectasis 5. Acute metabolic encephalopathy secondary to the above 6. Parkinson disease. 7. GERD. 8. Major depression. 9. Proximal atrial fibrillation with RVR 10. L femur fracture, status post direct anterior left hip arthroplasty Plan: This is a 66 years old male who presents with Covid pneumonia, femoral fracture and other comorbidities as above informed staff and medical team this morning to start comfort care measures Patient looks comfortable Please refer to orders for more details Despite treatment patient condition is declining and family wanted to keep him on BiPAP and later on comfort care measures and consult hospice after family, and to visit him today Discussed with staff Very poor prognosis No code per my discussion with
== END 2021-03-12 17:20 | disposition expired | DRG 521 ==
LOC: EC 00:02 → 4SSUR 02:12 → 1SOBS 07:09 → 3SCARD 03-08 19:01
PROVIDERS: ADMIT Family Medicine; ATTEND Family Medicine
PROC: 0SRS019 Replacement of Left Hip Joint, Femoral Surface with Metal Synthetic Substitute, Cemented, Open Approach (ICD-10-PCS; principal; 2021-02-28 15:30)
PROC: 5A0955A Assistance with Respiratory Ventilation, Greater than 96 Consecutive Hours, High Flow/Velocity Cannula (ICD-10-PCS; 2021-03-01)
PROC: 5A09557 Assistance with Respiratory Ventilation, Greater than 96 Consecutive Hours, Continuous Positive Airway Pressure (ICD-10-PCS; 2021-03-08)
DX: S72.012A Unspecified intracapsular fracture of left femur, initial encounter for closed fracture (principal); U07.1 COVID-19; J12.82 Pneumonia due to coronavirus disease 2019; J96.01 Acute respiratory failure with hypoxia; G93.41 Metabolic encephalopathy; J69.0 Pneumonitis due to inhalation of food and vomit; J98.11 Atelectasis; I95.89 Other hypotension; D64.9 Anemia, unspecified; F02.80 Dementia in other diseases classified elsewhere, unspecified severity, without behavioral disturbance, psychotic disturbance, mood disturbance, and anxiety; G20 Parkinson's disease; I48.0 Paroxysmal atrial fibrillation; Z66 Do not resuscitate; Z51.5 Encounter for palliative care; F32.9 Major depressive disorder, single episode, unspecified; K21.9 Gastro-esophageal reflux disease without esophagitis; E78.5 Hyperlipidemia, unspecified; G25.81 Restless legs syndrome; F41.9 Anxiety disorder, unspecified; K57.90 Diverticulosis of intestine, part unspecified, without perforation or abscess without bleeding; R13.10 Dysphagia, unspecified; M54.2 Cervicalgia; R29.6 Repeated falls; W18.30XA Fall on same level, unspecified, initial encounter; Z79.899 Other long term (current) drug therapy; Z90.49 Acquired absence of other specified parts of digestive tract; Z87.19 Personal history of other diseases of the digestive system; Z90.89 Acquired absence of other organs; Z87.81 Personal history of (healed) traumatic fracture; Z91.81 History of falling; Z87.2 Personal history of diseases of the skin and subcutaneous tissue; Z87.11 Personal history of peptic ulcer disease; Z87.09 Personal history of other diseases of the respiratory system; Z74.01 Bed confinement status; Z98.890 Other specified postprocedural states; Z88.8 Allergy status to other drugs, medicaments and biological substances; Y92.009 Unspecified place in unspecified non-institutional (private) residence as the place of occurrence of the external cause; Z80.0 Family history of malignant neoplasm of digestive organs; Z81.2 Family history of tobacco abuse and dependence; Z80.3 Family history of malignant neoplasm of breast
CPT/HCPCS: 36415; 70450; 71045; 71275; 72125; 73501; 73502; 80048; 80053; 81001; 83615; 83735; 84100; 84145; 84484; 85025; 85027; 85379; 85610; 85730; 86140; 87040; 87635; 88305; 88311; 93005; 94640; 94660; 94760; 96361; 96365; 96375; 96376; 99291